=== PATIENT | female | born 1970 | race Caucasian/White ===

== ENCOUNTER 2021-11-18 11:15 | Outpatient (REF) | payer OTHER, SELFPAY ==
[2021-11-25 13:02] LABS: Vitamin D 25-OH, D2 <4 ng/mL; Vitamin D 25-OH, D3 25 ng/mL; Vitamin D 25-OH, Total 25 ng/mL (30-100)
== END 2021-11-18 11:16 | disposition home or self-care (01) ==
LOC: HO.WFDLDS 11:15
PROVIDERS: Visit Provider Hospitalist
DX: I10 Essential (primary) hypertension (principal); R00.2 Palpitations; E55.9 Vitamin D deficiency, unspecified
CPT/HCPCS: 36415; 82306

== ENCOUNTER 2021-12-09 09:23 | Outpatient (REF) | payer OTHER, SELFPAY ==
[2021-12-09 11:32] LABS: TSH reflex Free T4 2.13 uIU/mL (0.32-4.0)
== END 2021-12-09 09:24 | disposition home or self-care (01) ==
LOC: HO.WFDLDS 09:23
PROVIDERS: Visit Provider Hospitalist
DX: Z00.00 Encounter for general adult medical examination without abnormal findings (principal); R53.83 Other fatigue
CPT/HCPCS: 36415; 84443

== ENCOUNTER 2022-01-08 11:47 | Outpatient (REF) | payer OTHER, SELFPAY ==
[2022-01-08 13:54] LABS: Hematocrit 40.9 % (37.0-47.0); Hemoglobin 13.9 g/dl (12.0-16.0); Mean Corpuscular Hemoglobin 30.2 pg (27.0-33.0); Mean Corpuscular Volume 88.7 fL (80.0-98.0); Mean Platelet Volume 9.3 fL (9.4-12.3); Platelet Count 440 X10*3/uL (160-400); Red Blood Count 4.61 X10*6/uL (4.20-5.50); Red Cell Distribution Width 12.8 % (11.0-16.0); White Blood Count 11.8 X10*3/uL (4.8-10.8)
== END 2022-01-08 11:48 | disposition home or self-care (01) ==
LOC: HO.WFDLDS 11:47
PROVIDERS: Visit Provider Hospitalist
DX: R53.83 Other fatigue (principal)
CPT/HCPCS: 36415; 85027

== ENCOUNTER → 2022-02-15 09:13 | Outpatient (BNVA) | payer OTHER, SELFPAY | PROVIDERS: PCP Hospitalist; Referring Provider Hospitalist; Visit Provider Internal Medicine | DX: R00.2 Palpitations (principal); R06.02 Shortness of breath; E66.01 Morbid (severe) obesity due to excess calories | CPT/HCPCS: 93005; 99202 ==

== ENCOUNTER 2022-04-20 11:23 | Outpatient (REF) | payer OTHER, SELFPAY ==
[2022-04-20 14:17] LABS: Hematocrit 44.8 % (37.0-47.0); Hemoglobin 14.6 g/dl (12.0-16.0); Mean Corpuscular HGB Conc 32.6 g/dl (31.0-35.0); Mean Corpuscular Hemoglobin 29.5 pg (27.0-33.0); Mean Corpuscular Volume 90.5 fL (80.0-98.0); Mean Platelet Volume 9.3 fL (9.4-12.3); Platelet Count 462 X10*3/uL (160-400); Red Blood Count 4.95 X10*6/uL (4.20-5.50); Red Cell Distribution Width 12.9 % (11.0-16.0); White Blood Count 9.6 X10*3/uL (4.8-10.8)
[2022-04-20 16:41] LABS: Alanine Aminotransferase 17 U/L (0-31); Albumin Level 4.4 g/dL (3.5-5.0); Alkaline Phosphatase 88 U/L (39-117); Anion Gap 13 (12-20); Aspartate Amino Transferase 16 U/L (5-31); Bilirubin Total 0.7 mg/dL (0.0-1.0); Blood Urea Nitrogen 14 mg/dL (9-16); Calcium 9.9 mg/dL (8.4-10.2); Carbon Dioxide 27 mmol/L (22-29); Chloride 106 mmol/L (96-108); Cholesterol 229 mg/dL; Estimated Glomerular Filt Rate > 60; Glucose Fasting 149 mg/dL (60-99); HDL Cholesterol 36 mg/dL; LDL Cholesterol Calculated 167 mg/dl; Potassium 4.2 mmol/L (3.3-5.1); Sodium 142 mmol/L (135-145); Total Protein 7.6 g/dL (6.5-8.0); Triglycerides 131 mg/dL
[2022-04-20 17:13] LABS: Free T4 (Free Thyroxine) 1.07 ng/dL (0.71-1.85)
== END 2022-04-20 11:24 | disposition home or self-care (01) ==
LOC: HO.WFDLDS 11:23
PROVIDERS: Visit Provider Hospitalist
DX: Z00.00 Encounter for general adult medical examination without abnormal findings (principal)
CPT/HCPCS: 36415; 80053; 80061; 84439; 84443; 85027

== ENCOUNTER 2023-01-12 09:56 | Outpatient (AMB) | payer OTHER, SELFPAY ==
[2023-01-12 09:57] VITALS: BP 134/84; PULSE 80; TEMP 36.6; O2SAT 98; BMI 37.3
--- NOTE | 2023-01-12 09:57 | AM.OFFWIN_ITS ---
Intake Vital Signs 01/12/23 09:57 Height 5 ft 5 in Weight 224 lb BMI 37.3 BP 134/84 Blood Pressure Location Rt brachial Position Sitting Pulse 80 Pulse Source Pulse Oximeter Temp 97.8 F Temp Source Temporal Artery Scan Pulse Oximetry (%) 98 Oxygen Delivery Method Room Air Intake Visit Reasons: EST/sore throat/congestion(masked lobby) Intake Note: pt is here for c/o sore throat with congestion Patient Tobacco Use Status: Former Tobacco user Quit Date: quit 20 years ago Allergies weed pollen Allergy (Mild, Verified 01/12/23 10:22) sneezing, watery eyes blue dye Allergy (Verified 01/12/23 10:22) Rash red dye Allergy (Verified 01/12/23 10:22) Rash Medication List - Last Reconciled 01/12/23 by Daniel Rodriguez MD amlodipine 5 mg PO DAILY 3 months azithromycin take 500 mg today (day 1), then 250 mg for 4 days (days 2-5) PO cholecalciferol (vitamin D3) 50 mcg PO DAILY hydrochlorothiazide 25 mg PO DAILY levothyroxine 100 mcg (2 x 50 mcg) PO QAM 90 days losartan 100 mg PO DAILY metoprolol tartrate 25 mg PO BID norethindrone acetate 5 mg PO DAILY venlafaxine ER 37.5 mg PO DAILY Ventolin HFA 90 mcg/actuation (albuterol sulfate) 1 inh inhalation QID PRN 1 month NS Do you need a note to return to daycare/school/sports/work: Yes HPI EST/sore throat/congestion(masked lobby) HPI Details Patient presents for a sick visit. Reporting symptoms of sinus congestion, sore throat and difficulty swallowing. Low-grade fever. No family member is sick. No recent travel. Patient reports symptoms of malaise and fatigue. PFSH Medical History Morbid obesity Surgical History No pertinent past surgical history Family History Mother Mental health disorder Social History Housing: House Patient Tobacco Use Status: Former Tobacco user Quit Date: quit 20 years ago e-Cigarette/Vaping Use: Never Used Second Hand Smoke Exposure: No service: No Current occupational status: unemployed Current occupational exposures/hazards: No Cognitive needs: No Hearing needs: No Vision needs: No Physical Exam Vital Signs: Last Vital Signs Temp 97.8 F 01/12/23 09:57 Pulse 80 01/12/23 09:57 BP 134/84 01/12/23 09:57 Pulse Ox 98 01/12/23 09:57 Oxygen Delivery Method Room Air 01/12/23 09:57 BMI result Body Mass Index 37.3 Const General: cooperative and healthy appearing Nutritional Appearance: well nourished Orientation/consciousness: patient oriented x3 Limitations: no limitations HEENT Head: Yes normal to inspection Eyes General: appearance normal, both eyes and all related structures Neck Neck: Yes normal visual inspection Chest Chest palpation & inspection: normal palpation of entire chest wall Resp Effort & Inspection: normal respiratory effort Neuro General: patient oriented x3 Results AMB Rapid Strep AMB Rapid Strep Negative Last Edit by Tanner Doe CMA on 01/12/23 10 :11 Results Reviewed Results Reviewed: Laboratory Last Values Strep Scn Rapid Clinic Negative 01/12/23 10:10 Assessment & Plan Assessment & Plan (1) Upper respiratory tract infection: Code(s): J06.9 - Acute upper respiratory infection, unspecified Plan: Antibiotics ordered. Increase fluid intake. Tylenol for aches and pains. If symptoms worsen, follow-up here for a recheck. Orders: Orders BinaxNOW Covid-19 Ag Today J06.9 - Acute upper respiratory infection, unspecified AMB Rapid Strep Screen Today Z13.9 - Encounter for screening, unspecified Medications: New azithromycin take 500 mg today (day 1), then 250 mg for 4 days (days 2-5) PO 6 tabs 0RF Coding Level of Care Code Est Pt Level 3 (72358) Diagnoses Upper respiratory tract infection J06.9
== END 2023-01-12 11:37 | disposition home or self-care (01) ==
PROVIDERS: PCP Hospitalist; Visit Provider Internal Medicine
DX: J06.9 Acute upper respiratory infection, unspecified (principal); J02.9 Acute pharyngitis, unspecified
CPT/HCPCS: 87880; 99213

== ENCOUNTER 2023-01-12 10:21 | Outpatient (REF) | payer OTHER, SELFPAY ==
[2023-01-12 10:46] LABS: Binax Internal Control QC Valid; Binax Now Covid-19 Ag Negative (Negative); Binax Performed by: HO.BONILM
== END 2023-01-12 10:22 | disposition home or self-care (01) ==
LOC: HO.HMGCLDS 10:21
PROVIDERS: PCP Hospitalist; Visit Provider Internal Medicine
DX: J06.9 Acute upper respiratory infection, unspecified (principal); Z20.822 Contact with and (suspected) exposure to COVID-19
CPT/HCPCS: 87811

== ENCOUNTER 2023-01-21 09:42 | Outpatient (AMB) | payer OTHER, SELFPAY ==
--- NOTE | 2023-01-21 09:47 | MHC.PC.OV ---
Vital Signs 01/21/23 09:49 Height 5 ft 5 in Weight 223 lb 4 oz BMI 37.1 BP 124/76 Blood Pressure Location Rt brachial Position Sitting Respiration 12 Pulse 63 Pulse Source Pulse Oximeter Temp 97.8 F Temp Source Temporal Artery Scan Pulse Oximetry (%) 99 Oxygen Delivery Method Room Air Intake Visit Reasons: ongoing cough Intake Note: Patient states that she went to [facility] in [place] and was told she had an infection and taking meds she states she deleveloped a cough. 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 Accompanied by: Self / Same As Patient Allergies weed pollen Allergy (Mild, Verified 01/21/23 10:03) sneezing, watery eyes blue dye Allergy (Verified 01/21/23 10:03) Rash red dye Allergy (Verified 01/21/23 10:03) Rash Medication List - Last Reconciled 01/21/23 by Ba Walker CNP amlodipine 5 mg PO DAILY 3 months cholecalciferol (vitamin D3) 50 mcg PO DAILY hydrochlorothiazide 25 mg PO DAILY levothyroxine 100 mcg (2 x 50 mcg) PO QAM 90 days losartan 100 mg PO DAILY metoprolol tartrate 25 mg PO BID norethindrone acetate 5 mg PO DAILY venlafaxine ER 37.5 mg PO DAILY Ventolin HFA 90 mcg/actuation (albuterol sulfate) 1 inh inhalation QID PRN 1 month NS Tobacco use date assessed: 10/21/22 Dental Screening Dental Screen Date: 01/21/23 Did you have a dental visit in the last 12 months?: No Did you have a dental problem in the last 6 months where you did not have access to dental care?: No Was dental information given to patient?: Yes HPI HPI Comments History of Present Illness Details 52-year-old female presents with complaints of ongoing cough. She was treated for upper respiratory viral infection at the [facility] on 01/12/2023. Rapid strep test was negative She was prescribed Z-Mauricio. She notes she completed the course of antibiotic. However, she developed nonproductive cough 2 days after taking the medication. She continues to cough and associated running nose and mild sore throat. She has been taking Mucinex DM with some relief. She denies fever, chills, body aches, fatigue, or weakness. She reports positive sick contacts at work with COVID and other respiratory illness. [facility] Medical History Morbid obesity Surgical History No pertinent past surgical history Family History Mother Mental health disorder Social History Housing: House Patient Tobacco Use Status: Never used Tobacco e-Cigarette/Vaping Use: Never Used Second Hand Smoke Exposure: No service: No Current occupational status: unemployed Current occupational exposures/hazards: No Cognitive needs: No Hearing needs: No Vision needs: No Questionnaire Thrive Questionnaire Date Thrive assessed: 11/18/21 KAYA-7 AMB Questionnaire KAYA-7 Date KAYA - 7 assessed: 11/18/21 Source: Developed by Drs. Deion Marshall, Sandra Lopez, Ricardo Raymond and colleagues, with an educational jim from [employer]. ACT Questionnaire In the past 4 weeks, how much of the time did your asthma keep you from getting as much done at work, school or at home?: None of the time During the past 4 weeks, how often have you had shortness of breath?: Not at all During the past 4 weeks, how often did your asthma symptoms wake you up at night or earlier than usual in the morning?: Not at all During the past 4 weeks, how often have you had to use your rescue inhaler or nebulizer medication?: 1-2 times a week How would you rate your asthma control during the past 4 weeks?: Well controlled Score: 21 Review of Systems Const Details: Const Denies chills, Denies fatigue, Denies fever(s), Denies headache(s) and Denies weakness ENT Reports as per HPI Card Denies chest pain, Denies lightheadedness, Denies dyspnea and Denies other (Palpitations) Resp Reports cough, Denies dyspnea, Denies wheezing and Denies other ( shortness of breath) GI Denies abdominal pain, Denies melena, Denies hematochezia, Denies change in bowel habits, Denies dyspepsia and Denies nausea Denies hematuria and Denies dysuria Musc Denies abnormal gait, Denies myalgias, Denies arthralgias, Denies numbness and Denies tingling Skin/Breast Denies rash, Denies unusual bruising and Denies wounds Neuro Denies abnormal gait, Denies dizziness, Denies headache(s), Denies memory loss, Denies numbness, Denies Sensory deficit (Neuro), Denies tingling and Denies weakness Psych Denies anxiety, Denies depression, Denies memory loss Endo Denies cold intolerance, Denies fatigue, Denies heat intolerance, Denies polydipsia and Denies polyuria Aller/Immun Denies wheezing Physical exam (Primary Care) Vital Signs: Last Vital Signs Temp 97.8 F 01/21/23 09:49 Pulse 63 01/21/23 09:49 Resp 12 01/21/23 09:49 BP 124/76 01/21/23 09:49 Pulse Ox 99 01/21/23 09:49 Oxygen Delivery Method Room Air 01/21/23 09:49 BMI result Body Mass Index 37.1 Tobacco/Smoking Status: Tobacco use Status Tobacco use date assessed 10/21/22 01/21/23 09:49 Patient Tobacco Use Status Never used Tobacco 01/21/23 10:00 e-Cigarette/Vaping Use Never Used 01/21/23 09:49 Thrive Assessment: Date of Thrive Assessment Date Thrive assessed 11/18/21 01/21/23 09:49 Const Other: General: no acute distress and well developed Nutritional Appearance: well nourished Orientation/consciousness: patient oriented x3 HENMT Head is normocephalic Bilateral ear canal and TM are normal Nasal turbinates and oropharynx are pink and moist Sinuses are nontender with palpation No auricular or cervical lymphadenopathy Eyes General: appearance normal, both eyes and all related structures Pupils: Equal, round and reactive pupils present EOM: EOMs intact bilaterally Resp Effort & Inspection: normal respiratory effort Auscultation: clear to auscultation bilaterally Cardio Rate: regular rate Rhythm: regular rhythm Heart sounds: S1 normal heart sound present, S2 normal heart sound present, no gallops, no murmurs and no rubs GI Palpation (GI): No Abdominal aortic bruit present, Soft to palpation, nontender, No hepatosplenomegaly present and No Rebound tenderness present Auscultation: normal bowel sounds General: Yes no CVA tenderness Back/Spine/Pelvis Back: no CVA tenderness Cervical Spine: cervical ROM normal and No Cervical spine tenderness Thoracic/Lumbar Spine: thoraco-lumbar ROM normal, No pain with thoraco-lumbar ROM, No thoracic spinal tenderness and No lumbar spinal tenderness Extrem General: Yes normal to inspection, No edema and No calf tenderness Skin General: warm and dry. Normal skin color. Normal skin turgor Lesions: no lesions Rashes: no rashes Trauma: no lacerations or abrasions Wounds: no wounds Nails: normal Neuro General: patient oriented x3, gait normal and no focal neuro deficit Cranial nerves: Yes Equal, round and reactive pupils present Cognition (Neuro): normal cognition Gait exam (Neuro): Normal gait present Sensory Exam: No Sensory deficit (Neuro) Psych Appearance: grossly normal Affect: normal affect Attitude: cooperative Thought process: Normal thought process present Assessment and Plan Assessment & Plan (1) Upper respiratory tract infection: Code(s): J06.9 - Acute upper respiratory infection, unspecified Plan: Likely viral illness though possibly allergies. No exam evidence of bacterial infection Viral illness There is no antibiotic medication for viruses.? They must run their course.? Most average 5-7 days but 7-10 days is not uncommon and up to 14 days is still possible.? A cough is often the last symptom to resolve and this can last for weeks in some cases. Rest Hydrate well -? Drink plenty of fluids.? Especially water. Tylenol or ibuprofen for muscle aches, headache, fever/discomform Benzonatate and Claritin as prescribed May gargle with salt water for throat discomfort Cannot rule out COVID-19/RSV/Flu infection Nasal swab acquired and will be sent to the lab Return for new or worsening symptoms Verbalized understanding and agreed with treatment plan. Orders: Orders SARS-CoV2/FLU/RSV Today J06.9 - Acute upper respiratory infection, unspecified Medications: New benzonatate 200 mg PO BID PRN 20 caps 0RF cough loratadine (Claritin) 10 mg PO DAILY 30 tabs 3RF 30 days Coding Level of Care Code Est Pt Level 2 (55000) Diagnoses Upper respiratory tract infection J06.9
[2023-01-21 09:49] VITALS: BP 124/76; PULSE 63; RESP 12; TEMP 36.6; O2SAT 99; BMI 37.1
== END 2023-01-21 10:13 | disposition home or self-care (01) ==
PROVIDERS: PCP Hospitalist; Visit Provider Nurse Practitioner Family
DX: J06.9 Acute upper respiratory infection, unspecified (principal)
CPT/HCPCS: 99212

== ENCOUNTER 2023-01-21 10:12 | Outpatient (REF) | payer OTHER, SELFPAY ==
[2023-01-21 15:30] LABS: Influenza A PCR NEGATIVE (Negative); Influenza B PCR NEGATIVE (Negative); Resp Syncy Virus RNA Qual PCR NEGATIVE (Negative); SARS COV2 PCR INHOUSE NEGATIVE (Negative)
== END 2023-01-21 10:13 | disposition home or self-care (01) ==
LOC: HO.LAB 10:12
PROVIDERS: Visit Provider Nurse Practitioner Family
DX: J06.9 Acute upper respiratory infection, unspecified (principal); Z20.822 Contact with and (suspected) exposure to COVID-19
CPT/HCPCS: 0241U

== ENCOUNTER 2023-02-03 15:53 | Outpatient (AMB) | payer OTHER, SELFPAY ==
[2023-02-03 15:55] VITALS: BP 124/70; PULSE 68; RESP 13; TEMP 37.1; O2SAT 98; BMI 37.0
--- NOTE | 2023-02-03 15:55 | MHC.PC.OV ---
Vital Signs 02/03/23 15:55 Height 5 ft 5 in Weight 222 lb 6 oz BMI 37.0 BP 124/70 Blood Pressure Location Rt brachial Position Sitting Respiration 13 Pulse 68 Pulse Source Pulse Oximeter Temp 98.7 F Temp Source Temporal Artery Scan Pulse Oximetry (%) 98 Oxygen Delivery Method Room Air Intake Visit Reasons: Transfer of Care - 3 mos HTN, asthma Intake Note: Patient states that she is still dealing with dry cough from strep throat and viral infection she had. Patient states that inhaler hasnt really helped nor the medication so patient states she will be getting a vaporizer to open airways. Patient would like referral to OB due to having fibroid tumor on her uterus. Patient states she thinks she may have endometriosis. Lobbyist Required: No Accompanied by: Self / Same As Patient Allergies Seasonal Allergies Allergy (Intermediate, Verified 02/03/23 16:07) Runny Nose weed pollen Allergy (Mild, Verified 02/03/23 16:07) sneezing, watery eyes blue dye Allergy (Verified 02/03/23 16:07) Rash red dye Allergy (Verified 02/03/23 16:07) Rash Medication List - Last Reconciled 02/03/23 by Ba Walker CNP amlodipine 5 mg PO DAILY 3 months benzonatate 200 mg PO BID PRN cholecalciferol (vitamin D3) 50 mcg PO DAILY hydrochlorothiazide 25 mg PO DAILY levothyroxine 100 mcg (2 x 50 mcg) PO QAM 90 days loratadine (Claritin) 10 mg PO DAILY 30 days losartan 100 mg PO DAILY metoprolol tartrate 25 mg PO BID norethindrone acetate 5 mg PO DAILY venlafaxine ER 37.5 mg PO DAILY Ventolin HFA 90 mcg/actuation (albuterol sulfate) 1 inh inhalation QID PRN 1 month NS Tobacco use date assessed: 10/21/22 Dental Screening Dental Screen Date: 02/03/23 Did you have a dental visit in the last 12 months?: No Did you have a dental problem in the last 6 months where you did not have access to dental care?: No Was dental information given to patient?: Patient has dentist HPI HPI Comments History of Present Illness Details 52-year-old female presents for transfer of care and hypertension and asthma follow-up. Her former PCP was JUNITO who is no longer with the practice. She admits to taking her medications as prescribed. She reports ongoing nonproductive cough. Her symptoms have been ongoing for the past 3 weeks, worse at night. She was seen at the [facility] twice and was treated for upper respiratory infection. 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 Deion Marshall, Sandra Lopez, Ricardo Raymond and colleagues, with an educational jim from [employer]. ACT Questionnaire In the past 4 weeks, how much of the time did your asthma keep you from getting as much done at work, school or at home?: None of the time During the past 4 weeks, how often have you had shortness of breath?: More than once a day During the past 4 weeks, how often did your asthma symptoms wake you up at night or earlier than usual in the morning?: Not at all During the past 4 weeks, how often have you had to use your rescue inhaler or nebulizer medication?: 1-2 times a week How would you rate your asthma control during the past 4 weeks?: Somewhat controlled ACT Interpretation: Positive Score: 16 Review of Systems Const Details: Const Denies chills, Denies fatigue, Denies fever(s), Denies headache(s) and Denies weakness ENT Denies dizziness and Denies headache(s) Card Denies chest pain, Denies lightheadedness, Denies dyspnea and Denies other (Palpitations) Resp Reports cough, Denies dyspnea, Denies wheezing and Denies other ( shortness of breath) GI Denies abdominal pain, Denies melena, Denies hematochezia, Denies change in bowel habits, Denies dyspepsia and Denies nausea Denies hematuria and Denies dysuria Musc Denies abnormal gait, Denies myalgias, Denies arthralgias, Denies numbness and Denies tingling Neuro Denies abnormal gait, Denies dizziness, Denies headache(s), Denies memory loss, Denies numbness, Denies Sensory deficit (Neuro), Denies tingling and Denies weakness Psych Denies anxiety, Denies depression, Denies memory loss Endo Denies cold intolerance, Denies fatigue, Denies heat intolerance, Denies polydipsia and Denies polyuria Aller/Immun Denies wheezing Physical exam (Primary Care) Vital Signs: Last Vital Signs Temp 98.7 F 02/03/23 15:55 Pulse 68 02/03/23 15:55 Resp 13 02/03/23 15:55 BP 124/70 02/03/23 15:55 Pulse Ox 98 02/03/23 15:55 Oxygen Delivery Method Room Air 02/03/23 15:55 BMI result Body Mass Index 37.0 Tobacco/Smoking Status: Tobacco use Status Tobacco use date assessed 10/21/22 01/21/23 09:49 Patient Tobacco Use Status Never used Tobacco 01/21/23 10:00 e-Cigarette/Vaping Use Never Used 01/21/23 09:49 Thrive Assessment: Date of Thrive Assessment Date Thrive assessed 11/18/21 01/21/23 09:49 Const Other: General: no acute distress and well developed Nutritional Appearance: well nourished Orientation/consciousness: patient oriented x3 HENNJ Head: Yes normocephalic and Yes atraumatic Eyes General: appearance normal, both eyes and all related structures Pupils: Equal, round and reactive pupils present EOM: EOMs intact bilaterally Resp Effort & Inspection: normal respiratory effort Auscultation: clear to auscultation bilaterally Cardio Rate: regular rate Rhythm: regular rhythm Heart sounds: S1 normal heart sound present, S2 normal heart sound present, no gallops, no murmurs and no rubs GI Palpation (GI): No Abdominal aortic bruit present, Soft to palpation, nontender, No hepatosplenomegaly present and No Rebound tenderness present Auscultation: normal bowel sounds General: Yes no CVA tenderness Back/Spine/Pelvis Back: no CVA tenderness Cervical Spine: cervical ROM normal and No Cervical spine tenderness Thoracic/Lumbar Spine: thoraco-lumbar ROM normal, No pain with thoraco-lumbar ROM, No thoracic spinal tenderness and No lumbar spinal tenderness Extrem General: Yes normal to inspection, No edema and No calf tenderness Skin General: warm and dry. Normal skin color. Normal skin turgor Neuro General: patient oriented x3, gait normal and no focal neuro deficit Cranial nerves: Yes Equal, round and reactive pupils present Cognition (Neuro): normal cognition Gait exam (Neuro): Normal gait present Sensory Exam: No Sensory deficit (Neuro) Psych Appearance: grossly normal Affect: normal affect Attitude: cooperative Thought process: Normal thought process present Assessment and Plan Assessment & Plan (1) Hypertension: Code(s): I10 - Essential (primary) hypertension Qualifiers: Hypertension type: primary hypertension Qualified Code(s): I10 - Essential (primary) hypertension Plan: Blood pressure is controlled, 124/70, within goal of less than 140/90 Continue with current treatment regimen Low-sodium diet encouraged Follow-up in 1-2 months for complete physical exam return sooner with symptoms or concerns Routine labs ordered. Advised to perform fasting blood work before her next visit Verbalized understanding and agreed with treatment plan. (2) Asthma, mild intermittent, well-controlled: Code(s): J45.20 - Mild intermittent asthma, uncomplicated Plan: ACT score is 16 and indicates partially control asthma She has been experiencing nonproductive cough for the past 3 weeks. Likely due to allergies. Chest x-ray ordered to rule out lung disease or tumor Her cough has been refractory to loratadine and albuterol inhaler Flovent ordered. Instructed on the use of the inhaler and advised to use as prescribed Follow-up with worsening or new symptoms Verbalized understanding and agreed with treatment plan. (3) Nonproductive cough: Code(s): R05.8 - Other specified cough Plan: As above (4) Laboratory tests ordered as part of a complete physical exam (CPE): Code(s): Z00.00 - Encounter for general adult medical examination without abnormal findings Plan: Fasting labs ordered as part of a complete physical exam. Advised to fast for at least 10 hours before getting labs drawn. May drink water Verbalized understanding and agreed with treatment plan. Orders: Orders Complete Blood Count Auto Diff Today Z00.00 - Encounter for general adult medical examination without abnormal findings Comprehensive [place]. Panel Fast Today Z00.00 - Encounter for general adult medical examination without abnormal findings Lipid Panel Today Z00.00 - Encounter for general adult medical examination without abnormal findings UA CC w/rflx Micro + Cult Today Z00.00 - Encounter for general adult medical examination without abnormal findings TSH reflex Free T4 Today Z00.00 - Encounter for general adult medical examination without abnormal findings XR chest 2V Today R05.8 - Other specified cough Medications: New fluticasone propionate 44 mcg/actuation (Flovent HFA) administer with spacer 2 puffs inhalation BID 30 days 10.6 grams 2RF Coding Level of Care Code Est Pt Level 3 (71387) Diagnoses Primary hypertension I10 Hypertension type: primary hypertension Asthma, mild intermittent, well-controlled J45.20 Nonproductive cough R05.8 Laboratory tests ordered as part of a complete physical exam (CPE) Z00.00
== END 2023-02-03 16:26 | disposition home or self-care (01) ==
PROVIDERS: PCP Nurse Practitioner Family; Visit Provider Nurse Practitioner Family
DX: I10 Essential (primary) hypertension (principal); J45.20 Mild intermittent asthma, uncomplicated; R05.8 Other specified cough
CPT/HCPCS: 99214

== ENCOUNTER 2023-02-11 11:09 | Outpatient (REF) | payer OTHER, SELFPAY ==
--- NOTE | ~2023-02-11 | XR_ITS ---
EXAMINATION: XR CHEST CLINICAL INFORMATION: Cough. COMPARISON: None available. TECHNIQUE: 2 views of the chest were obtained. FINDINGS: Lungs are well-inflated and clear. Trachea is midline in position. No interstitial disease, consolidation or mass. No pleural effusion or pneumothorax. Cardiac silhouette and pulmonary vessels are normal in size. The mediastinum and delfino have normal contour. The visualized bones and upper abdomen are unremarkable. XR/XR chest 2V IMPRESSION: No evidence of pneumonia. No acute cardiopulmonary abnormality.
== END 2023-02-11 11:10 | disposition home or self-care (01) ==
LOC: HO.HMGCX 11:09
PROVIDERS: PCP Nurse Practitioner Family; Visit Provider Nurse Practitioner Family
DX: R05.8 Other specified cough (principal)
CPT/HCPCS: 71046

== ENCOUNTER 2023-05-20 08:20 | Outpatient (AMB) | payer OTHER, SELFPAY ==
[2023-05-20 08:30] VITALS: BP 126/74; PULSE 85; RESP 13; TEMP 36.4; O2SAT 97; BMI 39.3
--- NOTE | 2023-05-20 08:30 | MHC.PC.OV ---
Vital Signs 05/20/23 08:30 Height 5 ft 5 in Weight 236 lb 4 oz BMI 39.3 BP 126/74 Blood Pressure Location Rt brachial Position Sitting Respiration 13 Pulse 85 Pulse Source Pulse Oximeter Temp 97.5 F Temp Source Temporal Artery Scan Pulse Oximetry (%) 97 Oxygen Delivery Method Room Air Intake Visit Reasons: CPE Intake Note: Patient feels as though her thyroid is off and shes been experiencing indigestion. Wool Hat Flanger Required: No Accompanied by: Self / Same As Patient Allergies Seasonal Allergies Allergy (Intermediate, Verified 05/20/23 08:40) Runny Nose weed pollen Allergy (Mild, Verified 05/20/23 08:40) sneezing, watery eyes blue dye Allergy (Verified 05/20/23 08:40) Rash red dye Allergy (Verified 05/20/23 08:40) Rash Medication List - Last Reconciled 05/20/23 by Ba Walker CNP amlodipine 5 mg PO DAILY 3 months benzonatate 200 mg PO BID PRN cholecalciferol (vitamin D3) 50 mcg PO DAILY fluticasone propionate 44 mcg/actuation (Flovent HFA) 2 puffs inhalation BID 30 days hydrochlorothiazide 25 mg PO DAILY levothyroxine 100 mcg (2 x 50 mcg) PO QAM 90 days loratadine (Claritin) 10 mg PO DAILY 30 days losartan 100 mg PO DAILY metoprolol tartrate 25 mg PO BID norethindrone acetate 5 mg PO DAILY venlafaxine ER 37.5 mg PO DAILY Ventolin HFA 90 mcg/actuation (albuterol sulfate) 1 inh inhalation QID PRN 1 month NS Tobacco use date assessed: 05/20/23 HPI HPI Comments History of Present Illness Details 52-year-old female presents for an extended physical exam She has past medical history significant for hypertension, asthma, obesity, hypothyroidism, vitamin-D deficiency, anxiety, and depression. She has history of fibroids and on norethindorone. She was followed by filling machine operator but not currently She admits to taking her medications as prescribed without adverse reactions She reports feeling of indigestion last week which she attributes to eating spicy food. She took some Tums with resolution of her symptoms She also reports intermittent chronic back pain since she was a teenager, the pain is mostly with palpation. She seen a chiropractor and taking Tylenol with good effect. She has never been evaluated for this by ortho and does not want to be referred to ortho at this time She has not gotten her fasting blood work done. Her last routine blood work was over a year ago She has never had a colonoscopy She notes that her last mammogram was over 2 years ago: something benign under the left breast Last Pap smear test was over 3 years ago: normal She notes she has not been vaccinated for shingles She notes she has not been vaccinated for influenza this season. 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 1. Little interest or pleasure in doing things: not at all 2. Feeling down, depressed, or hopeless: not at all 3. Trouble falling or staying asleep, or sleeping too much: several days 4. Feeling tired or having little energy: several days 5. Poor appetite or overeating: several days 6. Feeling bad about yourself - or that you are a failure or have let yourself or your family down: not at all 7. Trouble concentrating on things, such as reading the newspaper or watching television: not at all 8. Moving or speaking so slowly that other people could have noticed. Or the opposite - being so fidgety or restless that you have been moving around a lot more than usual: not at all 9. Thoughts that you would be better off or of hurting yourself in some way: not at all Total score: 3 Depression Screening Interpretation: Negative Depression Screening Done: Yes 40245 - PHQ-9 Billing: Yes Source: Developed by Drs. Deion Marshall, Ricardo Alexander and colleagues, with an educational jim from [employer]. Thrive Questionnaire Date Thrive assessed: 05/20/23 I am a: Patient What is your living situation today?: I have a steady place to live Within the past 12 months, did the food you bought not last and you didn't have the money to get more?: Never true Within the past 12 months, did you worry whether your food would run out before you got money to buy more?: Never true Do you have trouble paying for medicines?: No Do you have trouble getting transportation to medical appointments?: No Do you have trouble paying your heating and electricity bill?: No Do you have trouble taking care of your child, family member or friend?: No Do you have trouble with day-to-day activities such as bathing, preparing meals, shopping, managing finances, etc.?: No Are you currently unemployed and looking for a job?: No Are you interested in more education?: Yes Please select the resources that you would like help with: Education Currently or been in a relationship where the following occur: no concerns reported THRIVE Score: 0 AUDIT C Alcohol Use Questionnaire (AUDIT-C) 1. How often do you have a drink containing alcohol?: Never 3. How often do you have six or more drinks on one occasion?: Never Total Score: 0 KAYA-7 AMB Questionnaire KAYA-7 Date KAYA - 7 assessed: 05/20/23 Feeling nervous, anxious, or on edge: 1 = Several days Not being able to stop or control worryin = Not at all Worrying too much about different things: 0 = Not at all Trouble relaxin = Not at all Being so restless that it is hard to sit still: 0 = Not at all Becoming easily annoyed or irritable: 0 = Not at all Feeling afraid as if something awful might happen: 0 = Not at all Total KAYA-7 score (0-4 normal; 5-9 mild; 10-14 moderate; 15-21 severe): 1 Source: Developed by Sandra Byrnes Kurt Kroenke and colleagues, with an educational jim from [employer]. KAYA-7 Assessment Billing KAYA-7 Assessment Tool: KAYA-7 Assessment 62648 ACT Questionnaire In the past 4 weeks, how much of the time did your asthma keep you from getting as much done at work, school or at home?: None of the time During the past 4 weeks, how often have you had shortness of breath?: 1-2 times a week During the past 4 weeks, how often did your asthma symptoms wake you up at night or earlier than usual in the morning?: Not at all During the past 4 weeks, how often have you had to use your rescue inhaler or nebulizer medication?: Not at all How would you rate your asthma control during the past 4 weeks?: Completely controlled ACT Interpretation: Negative Score: 24 Review of Systems Const Details: Denies chills, Denies fatigue, Denies fever(s), Denies headache(s) and Denies weakness HEENT Denies change in vision, Denies dizziness, Denies headache(s), Denies hearing loss, Denies nasal congestion, Denies sinus pain, Denies sinus pressure and Denies sore throat Card Denies chest pain, Denies lightheadedness, Denies dyspnea and Denies other (palpitations) Resp Denies cough, Denies dyspnea and Denies wheezing GI Denies abdominal pain, Denies melena, Denies hematochezia, Denies change in bowel habits, Denies dyspepsia and Denies nausea Denies hematuria and Denies dysuria Musc Denies abnormal gait, Denies myalgias, Denies arthralgias, Denies numbness and Denies tingling Skin/Breast Denies rash, Denies unusual bruising and Denies wounds Neuro Denies abnormal gait, Denies dizziness, Denies headache(s), Denies memory loss, Denies numbness, Denies Sensory deficit (Neuro), Denies tingling and Denies weakness Psych Denies anxiety, Denies depression and Denies memory loss Endo Denies cold intolerance, Denies fatigue, Denies heat intolerance, Denies polydipsia and Denies polyuria Cr/Lymph Denies easy bleeding and Denies easy bruising Aller/Immun Denies wheezing Physical exam (Primary Care) Vital Signs: Last Vital Signs Temp 97.5 F 05/20/23 08:30 Pulse 85 05/20/23 08:30 Resp 13 05/20/23 08:30 BP 126/74 05/20/23 08:30 Pulse Ox 97 05/20/23 08:30 Oxygen Delivery Method Room Air 05/20/23 08:30 BMI result Body Mass Index 39.3 Tobacco/Smoking Status: Tobacco use Status Tobacco use date assessed 05/20/23 05/20/23 08:41 Patient Tobacco Use Status Never used Tobacco 05/20/23 08:41 e-Cigarette/Vaping Use Never Used 05/20/23 08:41 PHQ-9: PHQ-9 Score PHQ-9: Total score 3 05/20/23 08:44 Depression Screening Interpretation: Negative Thrive Assessment: Date of Thrive Assessment Date Thrive assessed 05/20/23 05/20/23 08:41 Currently or been in a relationship where the following occur: no concerns reported Const Other: General: no acute distress, well developed, alert and awake Nutritional Appearance: well nourished Orientation/consciousness: patient oriented x3 HENMT Head: Yes normocephalic and Yes atraumatic Ears: hearing grossly normal bilaterally and TM's normal bilaterally General nose exam: Normal external nose present and Normal nares present Mouth: Normal oral and palatal mucosa present and moist mucous membranes Teeth and gingiva: dentition normal Throat: Yes oropharynx normal Eyes Pupils: Equal, round and reactive pupils present and Pupil accommodation reflex normal EOM: EOMs intact bilaterally Neck Neck: Yes normal visual inspection, Yes no lymphadenopathy and Yes trachea midline Thyroid: Thyroid normal Carotids: no bruits Lymphatic: no lymphadenopathy noted Chest Chest palpation & inspection: normal inspection of the chest Resp Effort & Inspection: normal respiratory effort Auscultation: clear to auscultation bilaterally Cardio Rate: regular rate Rhythm: regular rhythm Heart sounds: S1 normal heart sound present, S2 normal heart sound present, no gallops, no murmurs and no rubs Bruits: no abdominal aortic bruits and no carotid bruits GI Palpation (GI): No Abdominal aortic bruit present, Soft to palpation, nontender, No hepatosplenomegaly present and No Rebound tenderness present Auscultation: normal bowel sounds General: Yes no CVA tenderness Back/Spine/Pelvis Back: no CVA tenderness Cervical Spine: cervical ROM normal and No Cervical spine tenderness Thoracic/Lumbar Spine: thoraco-lumbar ROM normal, No pain with thoraco-lumbar ROM, No thoracic spinal tenderness and lumbar spinal tenderness Skin General: warm and dry. Normal skin color. Normal skin turgor Lesions: no lesions Rashes: no rashes Trauma: no lacerations or abrasions Wounds: no wounds Nails: normal Neuro General: patient oriented x3, gait normal and CN's II-XI intact bilaterally Cranial nerves: Yes Equal, round and reactive pupils present Cognition (Neuro): normal cognition Gait exam (Neuro): Normal gait present Motor exam (neuro): 5/5 motor strength present throughout Sensory Exam: No Sensory deficit (Neuro) Deep tendon reflexes (DTR's): Right patellar reflex intensity grade: 2+ and Left patellar reflex intensity grade: 2+ Extrem General: Yes normal to inspection, No edema and No calf tenderness Psych Appearance: grossly normal Affect: normal affect Attitude: cooperative Thought process: Normal thought process present Assessment and Plan Assessment & Plan (1) Normal physical exam: Code(s): Z00.00 - Encounter for general adult medical examination without abnormal findings Plan: No significant physical restrictions or limitations noted Continue current treatment regimen Advised to routine fasting blood work done Follow-up in 2 months for hypertension, anxiety, depression, and labs review Return sooner with symptoms or concerns Verbalized understanding and agreed with treatment plan (2) Hypertension: Code(s): I10 - Essential (primary) hypertension Qualifiers: Hypertension type: primary hypertension Qualified Code(s): I10 - Essential (primary) hypertension Plan: Blood pressure is 126/74, within goal of less than 140/90 Continue current treatment regimen Low-sodium diet and routine exercise encouraged Follow-up in 2 months Verbalized understanding and agreed with treatment plan (3) Asthma, mild intermittent, well-controlled: Code(s): J45.20 - Mild intermittent asthma, uncomplicated Plan: Controlled Continue current treatment regimen Follow-up with symptoms or concerns Verbalized understanding and agreed with treatment plan (4) Anxiety and depression: Code(s): F41.9 - Anxiety disorder, unspecified; F32.A - Depression, unspecified Plan: Reports controlled symptoms on current treatment PHQ-9 and KAYA-7 scores are normal Continue current treatment Follow-up in 2 months or return sooner with symptoms or concerns Verbalized understanding and agreed with treatment plan (5) Obesity (BMI 35.0-39.9 without comorbidity): Code(s): E66.9 - Obesity, unspecified Plan: She currently weighs 236 lb, BMI is 39.3 Healthy diet and routine exercise encouraged She may inform her PCP if she needs a referral to engraver letter/dietitian or with management Verbalized understanding and agreed with the plan (6) Breast cancer screening by mammogram: Code(s): Z12.31 - Encounter for screening mammogram for malignant neoplasm of breast Plan: She notes that her last mammogram was over 2 years ago: something benign under the left breast Mammogram screening ordered (7) Pap smear for cervical cancer screening: Code(s): Z12.4 - Encounter for screening for malignant neoplasm of cervix Plan: Last Pap smear test was over 3 years ago: normal Not currently followed by component assembler supervisor Referred to [facility] component assembler supervisor for Pap smear test (8) Screen for colon cancer: Code(s): Z12.11 - Encounter for screening for malignant neoplasm of colon Plan: She has never had a colonoscopy Referred to Gastroenterology for a colonoscopy (9) Vaccine counseling: Code(s): Z71.85 - Encounter for immunization safety counseling Plan: She notes she has not been vaccinated for shingles nausea she had been vaccinated for the flu this season. She is unsure of been vaccinated for the flu Instructed on importance of vaccination and encouraged to get vaccinated for flu and shingles (10) Chronic low back pain: Code(s): M54.50 - Low back pain, unspecified; G89.29 - Other chronic pain Plan: Pain mostly with palpation Good effects with chiropractor and Tylenol She has never been evaluated by Orthopedics and does not want to be referred at this time Continue current treatment regimen Warm/cold compresses encouraged Follow-up with worsening or new symptoms Verbalized understanding and agreed with treatment plan Orders: Orders MM screening mammo BI Today Z12.31 - Encounter for screening mammogram for malignant neoplasm of breast Referrals Gastroenterology Referral Z12.11 - Encounter for screening for malignant neoplasm of colon STAFF DEVELOPMENT COORDINATOR RN Referral Z12.4 - Encounter for screening for malignant neoplasm of cervix Coding Level of Care Code Est Pt Prev Care 40-64y(31118) Diagnoses Normal physical exam Z00.00 Primary hypertension I10 Hypertension type: primary hypertension Asthma, mild intermittent, well-controlled J45.20 Anxiety and depression F41.9; F32.A Obesity (BMI 35.0-39.9 without comorbidity) E66.9 Breast cancer screening by mammogram Z12.31 Pap smear for cervical cancer screening Z12.4 Screen for colon cancer Z12.11 Vaccine counseling Z71.85 Chronic low back pain M54.50; G89.29 Additional Codes KAYA-7 Assessment Billing - KAYA-7 Assessment Tool: KAYA-7 Assessment 51757 ([id number])
== END 2023-05-20 09:02 | disposition home or self-care (01) ==
PROVIDERS: PCP Nurse Practitioner Family; Visit Provider Nurse Practitioner Family
DX: Z00.00 Encounter for general adult medical examination without abnormal findings (principal); E66.9 Obesity, unspecified; I10 Essential (primary) hypertension; Z68.39 Body mass index [BMI] 39.0-39.9, adult; J45.20 Mild intermittent asthma, uncomplicated; M54.50 Low back pain, unspecified; F41.9 Anxiety disorder, unspecified; F32.A Depression, unspecified; G89.29 Other chronic pain
CPT/HCPCS: 99396

== ENCOUNTER 2023-06-30 12:54 | Outpatient (AMB) | payer OTHER, SELFPAY ==
[2023-06-30 13:25] VITALS: BP 130/78; PULSE 72; TEMP 37.2; O2SAT 98; BMI 39.3
--- NOTE | 2023-06-30 13:25 | AM.OFFWIN_ITS ---
Intake Vital Signs 06/30/23 13:25 Height 5 ft 5 in Weight 236 lb BMI 39.3 BP 130/78 Blood Pressure Location Lt brachial Position Sitting Pulse 72 Pulse Source Pulse Oximeter Temp 99.0 F Temp Source Oral Pulse Oximetry (%) 98 Oxygen Delivery Method Room Air Intake Visit Reasons: EP chills phlem fever 100.4 cough [id number] Intake Note: pt is here for coughing, chills, fever 100.4, at home covid has been negative Patient Tobacco Use Status: Never used Tobacco Allergies Seasonal Allergies Allergy (Intermediate, Verified 06/30/23 13:26) Runny Nose weed pollen Allergy (Mild, Verified 06/30/23 13:26) sneezing, watery eyes blue dye Allergy (Verified 06/30/23 13:) Rash red dye Allergy (Verified 06/30/23 13:) Rash Do you need a note to return to daycare/school/sports/work: Yes HPI EP chills phlem fever 100.4 cough [id number] HPI Details This is a 53-year-old female patient who presents today with a 4 day history of upper airway congestion, productive cough, body aches, headache, chills. Denies any fever. Reports had episode of diarrhea x1. Home COVID test was negative. Has been using albuterol inhaler at home as well as some [id number] cold/flu medication. 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[employer]) Current occupational exposures/hazards: No Cognitive needs: No Hearing needs: No Vision needs: No Review of Systems Const All systems reviewed & are unremarkable except as noted in HPI and below Physical Exam Vital Signs: Last Vital Signs Temp 99.0 F 06/30/23 13:25 Pulse 72 06/30/23 13:25 BP 130/78 06/30/23 13:25 Pulse Ox 98 06/30/23 13:25 Oxygen Delivery Method Room Air 06/30/23 13:25 BMI result Body Mass Index 39.3 Const General: cooperative and no acute distress HEENT Head: Yes normal to inspection Ears: hearing grossly normal bilaterally, external ears normal and TM's normal bilaterally General nose exam: Normal external nose present and Normal nares present Face and sinus: Yes normal facial exam Mouth: Normal oral and palatal mucosa present Throat: Yes posterior oropharynx abnormal (mild erythema) Neck Neck: Yes no lymphadenopathy Resp Effort & Inspection: normal respiratory effort Auscultation: rhonchi upper bilaterally and wheezes scattered wheezes and upper bilaterally Cardio Palpation: normal PMI Rate: regular rate Rhythm: regular rhythm Skin General skin exam: no rashes or lesions noted Extrem General: Yes capillary refill normal and Yes no clubbing, cyanosis or edema Psych Appearance: grossly normal Mental Status: mental status grossly normal Speech and movement: Normal speech and movement present Office Procedures Nebulizer Treatment Nebulizer Treatment [id number]/MDI RX initial, or Nebulizer Subsequent Treatment Office Meds ipratropium 0.5 mg-albuterol 3 mg (2.5 mg base)/3 mL nebulization soln Performing Provider: ELZA Miguel Performing Location: [facility] (formerly [facility]) Administered by: Mami Rivera RN on 06/30/23 14:30 Dose Route Admin Location Dispensed Lot Number Expiration Date [facility] Dental Mold Maker 3 mL inhalation 3 mL [id number] 01/31/24 [id number] [facility] Assessment & Plan Assessment & Plan (1) Wheezing: Code(s): R06.2 - Wheezing Plan: Symptoms consistent with upper respiratory viral illness. Nebulizer treatment/DuoNeb provided in the office today with significant benefit. Avila carter's wheezing resolved following treatment. I have advised she continue to utilize albuterol inhaler at home and may use [id number] cold/flu products. We will also start her on a p.r.n. benzonatate for the coughing. Reviewed indications, use, possible side effects of medications. COVID/flu/RSV swab obtained and patient aware she will be notified with results once these are available. If she does not improve with time and conservative measures, she should return to the clinic for further evaluation. She verbalizes understanding and agrees to plan. (2) Upper respiratory tract infection: Code(s): J06.9 - Acute upper respiratory infection, unspecified Qualifiers: URI type: unspecified viral URI Qualified Code(s): J06.9 - Acute upper respiratory infection, unspecified Plan: as above Orders: Orders AMB Nebulizer Treatment Today R06.2 - Wheezing SARS-CoV2/FLU/RSV Today J06.9 - Acute upper respiratory infection, unspecified Medications: New benzonatate 100 mg PO BID 7 days PRN 14 caps 0RF cough R05.9 - Cough, unspecified Coding Level of Care Code Est Pt Level 3 (65457) Diagnoses Wheezing R06.2 Viral upper respiratory tract infection J06.9 URI type: unspecified viral URI CPT Codes Nebulizer Treatment - Nebulizer Treatment, initial or subsequent: 78676- Nebulizer/MDI RX initial, or Nebulizer Subsequent Treatment ([id number])
== END 2023-06-30 15:02 | disposition home or self-care (01) ==
PROVIDERS: Visit Provider Nurse Practitioner Family
DX: R06.2 Wheezing (principal); J06.9 Acute upper respiratory infection, unspecified
CPT/HCPCS: 94640; 99213; J7620

== ENCOUNTER 2023-06-30 14:23 | Outpatient (REF) | payer OTHER, SELFPAY ==
[2023-06-30 18:07] LABS: Influenza A PCR POSITIVE (Negative); Influenza B PCR NEGATIVE (Negative); Resp Syncy Virus RNA Qual PCR NEGATIVE (Negative); SARS COV2 PCR INHOUSE NEGATIVE (Negative)
== END 2023-06-30 14:24 | disposition home or self-care (01) ==
LOC: HO.LAB 14:23
PROVIDERS: Visit Provider Nurse Practitioner Family
DX: J06.9 Acute upper respiratory infection, unspecified (principal); Z11.52 Encounter for screening for COVID-19
CPT/HCPCS: 0241U

== ENCOUNTER 2023-07-15 07:45 | Outpatient (AMB) | payer OTHER, SELFPAY ==
[2023-07-15 08:07] VITALS: BP 126/74; PULSE 80; RESP 13; TEMP 36.8; O2SAT 99; BMI 39.4
--- NOTE | 2023-07-15 08:07 | MHC.PC.OV ---
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 Accompanied by: Self / Same As Patient Allergies Seasonal Allergies Allergy (Intermediate, Verified 07/15/23 08:17) Runny Nose weed pollen Allergy (Mild, Verified 07/15/23 08:17) sneezing, watery eyes blue dye Allergy (Verified 07/15/23 08:17) Rash red dye Allergy (Verified 07/15/23 08:17) Rash Medication List - Last Reconciled 07/15/23 by Ba Walker CNP amlodipine 5 mg PO DAILY 3 months cholecalciferol (vitamin D3) 50 mcg PO DAILY fluticasone propionate 44 mcg/actuation (Flovent HFA) 2 puffs inhalation BID 30 days hydrochlorothiazide 25 mg PO DAILY levothyroxine 100 mcg (2 x 50 mcg) PO QAM 90 days loratadine (Claritin) 10 mg PO DAILY 30 days losartan 100 mg PO DAILY metoprolol tartrate 25 mg PO BID norethindrone acetate 5 mg PO DAILY venlafaxine ER 37.5 mg PO DAILY Ventolin HFA 90 mcg/actuation (albuterol sulfate) 1 inh inhalation QID PRN 1 month NS Tobacco use date assessed: 05/20/23 Dental Screening Dental Screen Date: 07/15/23 Did you have a dental visit in the last 12 months?: No Did you have a dental problem in the last 6 months where you did not have access to dental care?: No Was dental information given to patient?: Patient has dentist HPI HPI Comments History of Present Illness Details 53-year-old female presents for hypertension, anxiety, depression, and labs review follow-up She admits to taking her medications as prescribed without adverse reactions She reports controlled anxiety and depression symptoms She has not gotten her recent lab orders drawn She notes that she is recovering from the flu. No acute symptoms at this time She notes that she has an appointment scheduled for a mammogram. 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 1. Little interest or pleasure in doing things: not at all 2. Feeling down, depressed, or hopeless: not at all 3. Trouble falling or staying asleep, or sleeping too much: more than half the days 4. Feeling tired or having little energy: more than half the days 5. Poor appetite or overeating: not at all 6. Feeling bad about yourself - or that you are a failure or have let yourself or your family down: not at all 7. Trouble concentrating on things, such as reading the newspaper or watching television: not at all 8. Moving or speaking so slowly that other people could have noticed. Or the opposite - being so fidgety or restless that you have been moving around a lot more than usual: not at all 9. Thoughts that you would be better off or of hurting yourself in some way: not at all Total score: 4 Depression Screening Interpretation: Negative Depression Screening Done: Yes 71273 - PHQ-9 Billing: Yes Source: Developed by Drs. Deion Marshall, Sandra Lopez, Ricardo Raymond and colleagues, with an educational jim from [employer]. Thrive Questionnaire Date Thrive assessed: 05/20/23 KAYA-7 AMB Questionnaire KAYA-7 Date KAYA - 7 assessed: 07/15/23 Feeling nervous, anxious, or on edge: 0 = Not at all Not being able to stop or control worryin = Nearly every day Worrying too much about different things: 3 = Nearly every day Trouble relaxin = Not at all Being so restless that it is hard to sit still: 0 = Not at all Becoming easily annoyed or irritable: 0 = Not at all Feeling afraid as if something awful might happen: 0 = Not at all Total KAYA-7 score (0-4 normal; 5-9 mild; 10-14 moderate; 15-21 severe): 6 Source: Developed by Drs. Deion Marshall, Sandra Lopez, Ricardo Raymond and colleagues, with an educational jim from [employer]. KAYA-7 Assessment Billing KAYA-7 Assessment Tool: KAYA-7 Assessment [id number] Review of Systems Const Details: Const Denies chills, Denies fatigue, Denies fever(s), Denies headache(s) and Denies weakness ENT Denies dizziness and Denies headache(s) Card Denies chest pain, Denies lightheadedness, Denies dyspnea and Denies other (Palpitations) Resp Denies cough, Denies dyspnea, Denies wheezing and Denies other ( shortness of breath) GI Denies abdominal pain, Denies melena, Denies hematochezia, Denies change in bowel habits, Denies dyspepsia and Denies nausea Denies hematuria and Denies dysuria Musc Denies abnormal gait, Denies myalgias, Denies arthralgias, Denies numbness and Denies tingling Skin/Breast Denies rash, Denies unusual bruising and Denies wounds Neuro Denies abnormal gait, Denies dizziness, Denies headache(s), Denies memory loss, Denies numbness, Denies Sensory deficit (Neuro), Denies tingling and Denies weakness Psych Denies anxiety, Denies depression, Denies memory loss Endo Denies cold intolerance, Denies fatigue, Denies heat intolerance, Denies polydipsia and Denies polyuria Aller/Immun Denies wheezing Physical exam (Primary Care) Vital Signs: Last Vital Signs Temp 98.2 F 07/15/23 08:07 Pulse 80 07/15/23 08:07 Resp 13 07/15/23 08:07 BP 126/74 07/15/23 08:07 Pulse Ox 99 07/15/23 08:07 Oxygen Delivery Method Room Air 07/15/23 08:07 BMI result Body Mass Index 39.4 Tobacco/Smoking Status: Tobacco use Status Tobacco use date assessed 05/20/23 05/20/23 08:41 Patient Tobacco Use Status Never used Tobacco 06/30/23 13:27 e-Cigarette/Vaping Use Never Used 05/20/23 08:41 Depression Screening Interpretation: Negative Thrive Assessment: Date of Thrive Assessment Date Thrive assessed 05/20/23 05/20/23 08:41 Const Other: General: no acute distress and well developed Nutritional Appearance: well nourished Orientation/consciousness: patient oriented x3 HENMT Head: Yes normocephalic and Yes atraumatic Eyes General: appearance normal, both eyes and all related structures Pupils: Equal, round and reactive pupils present EOM: EOMs intact bilaterally Resp Effort & Inspection: normal respiratory effort Auscultation: clear to auscultation bilaterally Cardio Rate: regular rate Rhythm: regular rhythm Heart sounds: S1 normal heart sound present, S2 normal heart sound present, no gallops, no murmurs and no rubs GI Palpation (GI): No Abdominal aortic bruit present, Soft to palpation, nontender, No hepatosplenomegaly present and No Rebound tenderness present Auscultation: normal bowel sounds General: Yes no CVA tenderness Back/Spine/Pelvis Back: no CVA tenderness Cervical Spine: cervical ROM normal and No Cervical spine tenderness Thoracic/Lumbar Spine: thoraco-lumbar ROM normal, No pain with thoraco-lumbar ROM, No thoracic spinal tenderness and No lumbar spinal tenderness Extrem General: Yes normal to inspection, No edema and No calf tenderness Skin General: warm and dry. Normal skin color. Normal skin turgor Neuro General: patient oriented x3, gait normal and no focal neuro deficit Cranial nerves: Yes Equal, round and reactive pupils present Cognition (Neuro): normal cognition Gait exam (Neuro): Normal gait present Sensory Exam: No Sensory deficit (Neuro) Psych Appearance: grossly normal Affect: normal affect Attitude: cooperative Thought process: Normal thought process present Assessment and Plan Assessment & Plan (1) Hypertension: Code(s): I10 - Essential (primary) hypertension Qualifiers: Hypertension type: primary hypertension Qualified Code(s): I10 - Essential (primary) hypertension Plan: Blood pressure is controlled, 126/74, within goal of less than 140/90 Continue current treatment regimen Low-sodium diet encouraged Follow-up in 3 months or return sooner with symptoms or concerns Verbalized understanding and agreed with treatment plan (2) Anxiety and depression: Code(s): F41.9 - Anxiety disorder, unspecified; F32.A - Depression, unspecified Plan: Reports controlled anxiety and depression symptoms KAYA-7 score revealed mild anxiety. PHQ-9 score is normal Continue current treatment regimen Routine exercise encouraged Follow-up in 3 months or return sooner with symptoms or concerns Verbalized understanding and agreed with treatment plan Orders: Orders Vitamin D 25-OH Total Today E55.9 - Vitamin D deficiency, unspecified Coding Level of Care Code Est Pt Level 3 (00592) Diagnoses Primary hypertension I10 Hypertension type: primary hypertension Anxiety and depression F41.9; F32.A Additional Codes KAYA-7 Assessment Billing - KAYA-7 Assessment Tool: KAYA-7 Assessment 27014 ([id number])
== END 2023-07-15 08:26 | disposition home or self-care (01) ==
PROVIDERS: PCP Nurse Practitioner Family; Visit Provider Nurse Practitioner Family
DX: I10 Essential (primary) hypertension (principal); F41.9 Anxiety disorder, unspecified; F32.A Depression, unspecified
CPT/HCPCS: 99213

== ENCOUNTER 2023-07-15 08:27 | Outpatient (REF) | payer OTHER, SELFPAY ==
[2023-07-15 11:28] LABS: MANUAL DIFF FLAG NO
[2023-07-15 11:30] LABS: Appearance Urine Cloudy; Color Urine Yellow; Glucose Urine UA Negative (Negative); Leukocyte Esterase Urine Trace (Negative); Nitrite Urine Negative (Negative); PH 6.5 (5.0-9.0); UMIC TRIGGER UACC YES; Urine Blood Negative (Negative); Urine Ketones Negative (Negative); Urine Protein Negative (Neg-Trace)
[2023-07-15 11:33] LABS: Basophils Absolute Auto 0.1 X10*3/uL (0.0-0.2); Basophils Percent Auto 0.6 % (0-2); Eosinophils Absolute Auto 0.4 X10*3/uL (0.0-0.4); Eosinophils Percent Auto 3.3 % (0-4); Hematocrit 42.2 % (37.0-47.0); Hemoglobin 14.2 g/dl (12.0-16.0); Imm Gran Abs Auto 0.04 X10*3/uL (0.00-0.03); Imm Gran Pct Auto 0.4 % (0.0-0.4); Lymphocytes Absolute Auto 2.6 X10*3/uL (1.2-4.9); Lymphocytes Percent Auto 25.1 % (20-40); Mean Corpuscular HGB Conc 33.6 g/dl (31.0-35.0); Mean Corpuscular Hemoglobin 29.8 pg (27.0-33.0); Mean Corpuscular Volume 88.7 fL (80.0-98.0); Mean Platelet Volume 9.5 fL (9.4-12.3); Monocytes Percent Auto 9.5 % (2-11); Neutrophils Absolute Auto 6.4 x10*3/uL (2.0-8.3); Neutrophils Percent Auto 61.1 % (45-73); Platelet Count 458 X10*3/uL (160-400); Red Blood Count 4.76 X10*6/uL (4.20-5.50); Red Cell Distribution Width 12.7 % (11.0-16.0); White Blood Count 10.5 X10*3/uL (4.8-10.8)
[2023-07-15 11:42] LABS: Bacteria Urine 1+ (None Seen); Hyaline Casts Urine 0-2 /LPF (0-2); RBC Urine 0-2 /HPF (0-2); UACC Culture Trigger YES
[2023-07-15 12:37] LABS: Alanine Aminotransferase 15 U/L (0-31); Albumin Level 4.1 g/dL (3.5-5.0); Alkaline Phosphatase 88 U/L (39-117); Anion Gap 12 (12-20); Aspartate Amino Transferase 16 U/L (5-31); Blood Urea Nitrogen 12 mg/dL (9-16); Calcium 9.6 mg/dL (8.4-10.2); Carbon Dioxide 26 mmol/L (22-29); Chloride 106 mmol/L (96-108); Cholesterol 200 mg/dL (<200); Estimated Glomerular Filt Rate 60; Glucose Fasting 112 mg/dL (60-99); HDL Cholesterol 36 mg/dL (>40); LDL Cholesterol Calculated 144 mg/dL (<100); Potassium 3.2 mmol/L (3.3-5.1); Sodium 141 mmol/L (135-145); Total Protein 7.8 g/dL (6.5-8.0); Triglycerides 101 mg/dL (<150)
[2023-07-15 12:52] LABS: TSH reflex Free T4 5.51 uIU/mL (0.32-4.0); Vitamin D 25-OH Total 26.9 ng/mL (>30)
[2023-07-15 13:33] LABS: Free T4 (Free Thyroxine) 1.11 ng/dL (0.71-1.85)
== END 2023-07-15 08:28 | disposition home or self-care (01) ==
LOC: HO.WFDLDS 08:27
PROVIDERS: Visit Provider Nurse Practitioner Family
DX: Z00.00 Encounter for general adult medical examination without abnormal findings (principal); E78.5 Hyperlipidemia, unspecified; E87.6 Hypokalemia; E55.9 Vitamin D deficiency, unspecified; Z13.220 Encounter for screening for lipoid disorders; Z13.29 Encounter for screening for other suspected endocrine disorder
CPT/HCPCS: 36415; 80053; 80061; 81001; 82306; 84439; 84443; 85025; 87086

== ENCOUNTER 2023-08-04 11:15 | Outpatient (REF) | payer OTHER, SELFPAY | END 2023-08-04 11:16 | disposition home or self-care (01) | LOC: HO.MAMMO 11:15 | PROVIDERS: PCP Nurse Practitioner Family; Visit Provider Nurse Practitioner Family | DX: Z12.31 Encounter for screening mammogram for malignant neoplasm of breast (principal) | CPT/HCPCS: 77063; 77067 ==

== ENCOUNTER → 2023-08-04 11:45 | Outpatient (BNV) | payer OTHER, SELFPAY | PROVIDERS: PCP Nurse Practitioner Family; Visit Provider Radiology Diagnostic Radiology | DX: Z12.31 Encounter for screening mammogram for malignant neoplasm of breast (principal) | CPT/HCPCS: 77063; 77067 ==

== ENCOUNTER 2023-08-23 09:27 | Outpatient (AMB) | payer OTHER, SELFPAY ==
[2023-08-23 09:43] VITALS: BP 118/70; PULSE 70; RESP 14; TEMP 36.4; O2SAT 98; BMI 39.9
--- NOTE | 2023-08-23 09:43 | A.OFFPC_ITS ---
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: No Accompanied by: Self / Same As Patient Allergies Seasonal Allergies Allergy (Intermediate, Verified 08/23/23 10:04) Runny Nose weed pollen Allergy (Mild, Verified 08/23/23 10:04) sneezing, watery eyes blue dye Allergy (Verified 08/23/23 10:04) Rash red dye Allergy (Verified 08/23/23 10:04) Rash Medication List - Last Reconciled 08/23/23 by Ba Walker CNP amlodipine 5 mg PO DAILY 3 months cholecalciferol (vitamin D3) 50 mcg PO DAILY 30 days fluticasone propionate 44 mcg/actuation (Flovent HFA) 2 puffs inhalation BID 30 days hydrochlorothiazide 25 mg PO DAILY levothyroxine 112 mcg PO DAILY 30 days loratadine (Claritin) 10 mg PO DAILY 30 days losartan 100 mg PO DAILY metoprolol tartrate 25 mg PO BID norethindrone acetate 5 mg PO DAILY venlafaxine ER 37.5 mg PO DAILY Ventolin HFA 90 mcg/actuation (albuterol sulfate) 1 inh inhalation QID PRN 1 month NS Tobacco use date assessed: 08/23/23 Dental Screening Dental Screen Date: 07/15/23 HPI HPI Comments History of Present Illness Details 53-year-old female presents with complai nts of constant soreness to both elbows and knees. She notes intermittent tingling sensation from her e lbows to forearms. She also reports burning sensation from her right knee to lower leg. She reports continued chronic right hip soreness. Her elbows and knees have soreness have been ongoing for almost 4 weeks and progressively worsened the past 2 weeks. She notes that Ibuprofen provides short term relief. She notes that she has never had imaging of her elbows, hips, or knees. Denies fall, injury, or trauma. She states that her work requires prolonged standing on a wooden floor. 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 Deion Marshall, Sandra Lopez, Ricardo Raymond and colleagues, with an educational jim from [employer]. Review of Systems Const Details: Const Denies chills, Denies fatigue, Denies fever(s), Denies headache(s) and Denies weakness ENT Denies dizziness and Denies headache(s) Card Denies chest pain, Denies lightheadedness, Denies dyspnea and Denies other (Palpitations) Resp Denies cough, Denies dyspnea, Denies wheezing and Denies other ( shortness of breath) GI Denies abdominal pain, Denies melena, Denies hematochezia, Denies change in bowel habits, Denies dyspepsia and Denies nausea Denies hematuria and Denies dysuria Musc Reports as per HPI Skin/Breast Denies rash, Denies unusual bruising and Denies wounds Neuro Denies abnormal gait, Denies dizziness, Denies headache(s), Denies memory loss, Denies numbness, Denies Sensory deficit (Neuro), Denies tingling and Denies weakness Psych Denies anxiety, Denies depression, Denies memory loss Endo Denies cold intolerance, Denies fatigue, Denies heat intolerance, Denies polydipsia and Denies polyuria Aller/Immun Denies wheezing Physical exam (Primary Care) Vital Signs: Last Vital Signs Temp 97.6 F 08/23/23 09:43 Pulse 70 08/23/23 09:43 Resp 14 04/23/24 09:43 BP 118/70 08/23/23 09:43 Pulse Ox 98 08/23/23 09:43 Oxygen Delivery Method Room Air 08/23/23 09:43 BMI result Body Mass Index 39.9 Tobacco/Smoking Status: Tobacco use Status Tobacco use date assessed 08/23/23 08/23/23 09:55 Patient Tobacco Use Status Never used Tobacco 08/23/23 09:55 e-Cigarette/Vaping Use Never Used 08/23/23 09:55 Thrive Assessment: Date of Thrive Assessment Date Thrive assessed 05/20/23 08/23/23 09:49 Const Other: General: no acute distress and well developed Nutritional Appearance: well nourished Orientation/consciousness: patient oriented x3 HENMT Head: Yes normocephalic and Yes atraumatic Eyes General: appearance normal, both eyes and all related structures Pupils: Equal, round and reactive pupils present EOM: EOMs intact bilaterally Resp Effort & Inspection: normal respiratory effort Auscultation: clear to auscultation bilaterally Cardio Rate: regular rate Rhythm: regular rhythm Heart sounds: S1 normal heart sound present, S2 normal heart sound present, no gallops, no murmurs and no rubs GI Palpation (GI): No Abdominal aortic bruit present, Soft to palpation, nontender, No hepatosplenomegaly present and No Rebound tenderness present Auscultation: normal bowel sounds General: Yes no CVA tenderness Back/Spine/Pelvis Back: no CVA tenderness Cervical Spine: cervical ROM normal and No Cervical spine tenderness Thoracic/Lumbar Spine: thoraco-lumbar ROM normal, No pain with thoraco-lumbar ROM, No thoracic spinal tenderness and No lumbar spinal tenderness Extrem General: Yes normal to inspection, No edema and No calf tenderness Normal ROM of bilateral upper and lower extremities. No overt injury or trauma. Tenderness to palpation of the elbows and knees. Negative right straight leg raise Skin General: warm and dry. Normal skin color. Normal skin turgor Neuro General: patient oriented x3, gait normal and no focal neuro deficit Cranial nerves: Yes Equal, round and reactive pupils present Cognition (Neuro): normal cognition Gait exam (Neuro): Normal gait present Sensory Exam: No Sensory deficit (Neuro) Psych Appearance: grossly normal Affect: normal affect Attitude: cooperative Thought process: Normal thought process present Assessment and Plan Assessment & Plan (1) Bilateral elbow joint pain: Code(s): M25.521 - Pain in right elbow; M25.522 - Pain in left elbow Plan: Persistent bilateral elbow and knee pain for about month and chronic persistent right hip pain Normal ROM of bilateral upper and lower extremities. No overt injury or trauma. Tenderness to palpation of the elbows and knees. Negative right straight leg raise Likely arthritis or tendinitis Naproxen 500 mg twice daily recommended. However, she notes that ibuprofen works better for her and she prefers ibuprofen Advised to take ibuprofen 600-800 mg every 8 hours as needed for pain Gabapentin 200 mg twice daily ordered. Advised to take as prescribed. Encouraged to avoid taking during the day if experiencing drowsiness Warm/cold compresses encouraged Avoid prolonged standing PT recommended. However, she notes that she is unsure whether her health plan covers PT. Advised to inquire whether health plan covers PT X-ray ordered Follow-up with worsening or new symptoms Verbalized understanding and agreed with treatment plan (2) Bilateral knee pain: Code(s): M25.561 - Pain in right knee; M25.562 - Pain in left knee Plan: As above (3) Right hip pain: Code(s): M25.551 - Pain in right hip Plan: As above Orders: Orders XR elbow RT 2V Today M25.521 - Pain in right elbow, M25.522 - Pain in left elbow XR elbow LT 2V Today M25.521 - Pain in right elbow, M25.522 - Pain in left elbow XR hip RT w PEL1V Today M25.551 - Pain in right hip XR knee RT 2V Today M25.561 - Pain in right knee, M25.562 - Pain in left knee XR knee LT 2V Today M25.561 - Pain in right knee, M25.562 - Pain in left knee Medications: New gabapentin 200 mg (2 x 100 mg) PO BID 30 days 120 caps 0RF Coding Level of Care Code Est Pt Level 5 (09996) Diagnoses Bilateral elbow joint pain M25.521; M25.522 Bilateral knee pain M25.561; M25.562 Right hip pain M25.551
== END 2023-08-23 10:16 | disposition home or self-care (01) ==
PROVIDERS: PCP Nurse Practitioner Family; Visit Provider Nurse Practitioner Family
DX: M25.521 Pain in right elbow (principal); M25.522 Pain in left elbow; M25.561 Pain in right knee; M25.562 Pain in left knee; M25.551 Pain in right hip
CPT/HCPCS: 99214

== ENCOUNTER 2023-08-23 10:56 | Outpatient (REF) | payer OTHER, SELFPAY ==
--- NOTE | ~2023-08-23 | XR_ITS ---
EXAMINATION: XR KNEE, RIGHT CLINICAL INFORMATION: Pain in right knee COMPARISON: None available. TECHNIQUE: AP and lateral views of the right knee. FINDINGS: No fracture or joint effusion. Alignment is anatomic. Joint spaces are maintained. No abnormal soft tissue calcification. XR/XR knee RT 2V IMPRESSION: No bony abnormality.
--- NOTE | ~2023-08-23 | XR_ITS ---
EXAMINATION: XR KNEE, LEFT CLINICAL INFORMATION: Left knee pain COMPARISON: None available. TECHNIQUE: Four views of the left knee. FINDINGS: No fracture or joint effusion. Alignment is anatomic. Joint spaces are maintained. No abnormal soft tissue calcification. XR/XR knee LT 2V IMPRESSION: No bony abnormality.
--- NOTE | ~2023-08-23 | XR_ITS ---
EXAMINATION: XR ELBOW, LEFT CLINICAL INFORMATION: Pain in left elbow COMPARISON: None available. TECHNIQUE: AP, lateral, and oblique views of the left elbow. FINDINGS: The bones and soft tissues are normal. No fracture or joint effusion. Alignment is anatomic. Joint spaces are maintained. XR/XR elbow LT 2V IMPRESSION: No bony abnormality.
--- NOTE | ~2023-08-23 | XR_ITS ---
EXAMINATION: XR ELBOW, RIGHT CLINICAL INFORMATION: Pain in right elbow COMPARISON: None available. TECHNIQUE: AP, lateral, and oblique views of the right elbow. FINDINGS: The bones and soft tissues are normal. No fracture or joint effusion. Alignment is anatomic. Joint spaces are maintained. XR/XR elbow RT 2V IMPRESSION: No bony abnormality.
--- NOTE | ~2023-08-23 | XR_ITS ---
EXAMINATION: XR HIP, RIGHT CLINICAL INFORMATION: Pain in right hip COMPARISON: None available. TECHNIQUE: Two views of the right hip. FINDINGS: No fracture. Alignment is anatomic. Hip joint space is maintained. Soft tissues are unremarkable. XR/XR hip RT w PEL1V IMPRESSION: No bony abnormality.
== END 2023-08-23 10:57 | disposition home or self-care (01) ==
LOC: HO.HMGCX 10:56
PROVIDERS: PCP Nurse Practitioner Family; Visit Provider Nurse Practitioner Family
DX: M25.551 Pain in right hip (principal); M25.562 Pain in left knee; M25.561 Pain in right knee; M25.522 Pain in left elbow; M25.521 Pain in right elbow
CPT/HCPCS: 73070; 73502; 73560

== ENCOUNTER 2023-09-12 12:33 | Outpatient (AMB) | payer OTHER, SELFPAY ==
--- NOTE | 2023-09-12 13:14 | AM.OFFWIN_ITS ---
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) Intake Note: pt is here for concern for stepping on roland nail, unsure when last tdap was Patient Tobacco Use Status: Never used Tobacco Allergies Seasonal Allergies Allergy (Intermediate, Verified 09/12/23 13:17) Runny Nose weed pollen Allergy (Mild, Verified 09/12/23 13:17) sneezing, watery eyes blue dye Allergy (Verified 09/12/23 13:17) Rash red dye Allergy (Verified 09/12/23 13:17) Rash Do you need a note to return to daycare/school/sports/work: No HPI HPI Comments History of Present Illness Details Patient presents to the walk-in today for sick visit Reports she stepped on a nail out in the yard 2 days ago She denies any concerns with the puncture area, no pain, redness, swelling or drainage. But she does not know her tetanus immunization status and would like it updated today. 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 Answers questions appropriately. Fully engaged in examination. Skin: warm, dry, intact HEENT: Normocephalic. Hearing intact. Cardiac: External chest normal in appearance. Respiratory: No cough, audible wheezing or stridor. Abdomen: without gross distension. MS: No obvious swelling or deformities. Right foot: Small puncture wound noted bottom of right foot. No erythema, exudate date, swelling or bleeding noted. Neurological: Oriented to person, place, time and situation. Thought process intact. No gait abnormalities appreciated. Psychiatric: Appropriate mood and affect. Good judgment and insight. Assessment & Plan Assessment & Plan (1) Encounter for immunization: Code(s): Z23 - Encounter for immunization (2) Puncture wound of right foot: Code(s): S91.331A - Puncture wound without foreign body, right foot, initial encounter Plan No concern for local or systemic infection of the right foot puncture wound Tdap given today, patient tolerated well. All questions and concerns were answered, patient agrees with the plan Follow up with PCP or return here for any new or concerning symptoms Orders: Orders TDaP Immunization Today Z23 - Encounter for immunization Medications: New Boostrix Tdap (diphth,pertus(acell),tetanus) 0.5 mL IM ONCE 0.5 mL 0RF NS Z23 - Encounter for immunization Coding Level of Care Code Est Pt Level 3 (29100) Diagnoses Encounter for immunization Z23 Puncture wound of right foot S91.331A
[2023-09-12 13:16] VITALS: BP 120/72; PULSE 72; TEMP 36.7; O2SAT 98; BMI 39.8
== END 2023-09-12 14:10 | disposition home or self-care (01) ==
PROVIDERS: PCP Nurse Practitioner Family; Visit Provider Registered Nurse Emergency
DX: Z23 Encounter for immunization (principal); S91.331A Puncture wound without foreign body, right foot, initial encounter
CPT/HCPCS: 90471; 90715; 99213

== ENCOUNTER 2023-10-14 12:13 | Outpatient (AMB) | payer OTHER, SELFPAY ==
--- NOTE | 2023-10-14 12:23 | MHC.PC.OV ---
Vital Signs 10/14/23 12:29 Height 5 ft 5 in Weight 235 lb 2 oz BMI 39.1 BP 106/66 Blood Pressure Location Lt brachial Position Sitting Pulse 82 Pulse Source Pulse Oximeter Pulse Oximetry (%) 96 Oxygen Delivery Method Room Air Intake Visit Reasons: HTN, depression, labs review Intake Note: Follow up labs, depression, and anxiety. Allergies Seasonal Allergies Allergy (Intermediate, Verified 10/14/23 12:33) Runny Nose weed pollen Allergy (Mild, Verified 10/14/23 12:33) sneezing, watery eyes blue dye Allergy (Verified 10/14/23 12:33) Rash red dye Allergy (Verified 10/14/23 12:33) Rash Medication List - Last Reconciled 10/14/23 by Ba Walker CNP amlodipine 5 mg PO DAILY 3 months cholecalciferol (vitamin D3) 50 mcg PO DAILY 30 days fluticasone propionate 44 mcg/actuation (Flovent HFA) 2 puffs inhalation BID 30 days gabapentin 200 mg (2 x 100 mg) PO BID 30 days hydrochlorothiazide 25 mg PO DAILY levothyroxine 112 mcg PO DAILY 30 days loratadine (Claritin) 10 mg PO DAILY 30 days losartan 100 mg PO DAILY metoprolol tartrate 25 mg PO BID norethindrone acetate 5 mg PO DAILY venlafaxine ER 37.5 mg PO DAILY Ventolin HFA 90 mcg/actuation (albuterol sulfate) 1 inh inhalation QID PRN 1 month NS Tobacco use date assessed: 08/23/23 Dental Screening Dental Screen Date: 07/15/23 HPI HPI Comments History of Present Illness Details 53-year-old female presents for hypertension, anxiety, depression, and labs review follow-up She admits to taking her medications as prescribed without adverse reactions She reports controlled anxiety and depression symptoms. 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 1. Little interest or pleasure in doing things: not at all 2. Feeling down, depressed, or hopeless: not at all 3. Trouble falling or staying asleep, or sleeping too much: not at all 4. Feeling tired or having little energy: not at all 5. Poor appetite or overeating: more than half the days 6. Feeling bad about yourself - or that you are a failure or have let yourself or your family down: not at all 7. Trouble concentrating on things, such as reading the newspaper or watching television: not at all 8. Moving or speaking so slowly that other people could have noticed. Or the opposite - being so fidgety or restless that you have been moving around a lot more than usual: not at all 9. Thoughts that you would be better off or of hurting yourself in some way: not at all Total score: 2 Depression Screening Interpretation: Negative Depression Screening Done: Yes 48975 - PHQ-9 Billing: Yes Source: Developed by Drs. Deion Marshall, Sandra Lopez, Ricardo Raymond and colleagues, with an educational jim from [employer]. Thrive Questionnaire Date Thrive assessed: 05/20/23 KAYA-7 AMB Questionnaire KAYA-7 Date KAYA - 7 assessed: 10/14/23 Feeling nervous, anxious, or on edge: 0 = Not at all Not being able to stop or control worryin = Not at all Worrying too much about different things: 0 = Not at all Trouble relaxin = Not at all Being so restless that it is hard to sit still: 0 = Not at all Becoming easily annoyed or irritable: 0 = Not at all Feeling afraid as if something awful might happen: 0 = Not at all Total KAYA-7 score (0-4 normal; 5-9 mild; 10-14 moderate; 15-21 severe): 0 Source: Developed by Drs. Deion Marshall, Sandra Lopez, Ricardo Raymond and colleagues, with an educational jim from [employer]. KAYA-7 Assessment Billing KAYA-7 Assessment Tool: KAYA-7 Assessment 95957 Review of Systems Const Details: Const Denies chills, Denies fatigue, Denies fever(s), Denies headache(s) and Denies weakness ENT Denies dizziness and Denies headache(s) Card Denies chest pain, Denies lightheadedness, Denies dyspnea and Denies other (Palpitations) Resp Denies cough, Denies dyspnea, Denies wheezing and Denies other ( shortness of breath) GI Denies abdominal pain, Denies melena, Denies hematochezia, Denies change in bowel habits, Denies dyspepsia and Denies nausea Denies hematuria and Denies dysuria Musc Denies abnormal gait, Denies myalgias, Denies arthralgias, Denies numbness and Denies tingling Skin/Breast Denies rash, Denies unusual bruising and Denies wounds Neuro Denies abnormal gait, Denies dizziness, Denies headache(s), Denies memory loss, Denies numbness, Denies Sensory deficit (Neuro), Denies tingling and Denies weakness Psych Denies anxiety, Denies depression, Denies memory loss Endo Denies cold intolerance, Denies fatigue, Denies heat intolerance, Denies polydipsia and Denies polyuria Aller/Immun Denies wheezing Physical exam (Primary Care) Vital Signs: Last Vital Signs Pulse 82 10/14/23 12:29 BP 106/66 10/14/23 12:29 Pulse Ox 96 10/14/23 12:29 Oxygen Delivery Method Room Air 10/14/23 12:29 BMI result Body Mass Index 39.1 Tobacco/Smoking Status: Tobacco use Status Tobacco use date assessed 08/23/23 10/14/23 12:24 Patient Tobacco Use Status Never used Tobacco 10/14/23 12:24 e-Cigarette/Vaping Use Never Used 10/14/23 12:24 PHQ-9: PHQ-9 Score PHQ-9: Total score 2 10/14/23 12:30 Depression Screening Interpretation: Negative Thrive Assessment: Date of Thrive Assessment Date Thrive assessed 05/20/23 10/14/23 12:24 Const Other: General: no acute distress and well developed Nutritional Appearance: well nourished Orientation/consciousness: patient oriented x3 [facility]: Yes normocephalic and Yes atraumatic Eyes General: appearance normal, both eyes and all related structures Pupils: Equal, round and reactive pupils present EOM: EOMs intact bilaterally Resp Effort & Inspection: normal respiratory effort Auscultation: clear to auscultation bilaterally Cardio Rate: regular rate Rhythm: regular rhythm Heart sounds: S1 normal heart sound present, S2 normal heart sound present, no gallops, no murmurs and no rubs GI Palpation (GI): No Abdominal aortic bruit present, Soft to palpation, nontender, No hepatosplenomegaly present and No Rebound tenderness present Auscultation: normal bowel sounds General: Yes no CVA tenderness Back/Spine/Pelvis Back: no CVA tenderness Cervical Spine: cervical ROM normal and No Cervical spine tenderness Thoracic/Lumbar Spine: thoraco-lumbar ROM normal, No pain with thoraco-lumbar ROM, No thoracic spinal tenderness and No lumbar spinal tenderness Extrem General: Yes normal to inspection, No edema and No calf tenderness Skin General: warm and dry. Normal skin color. Normal skin turgor Neuro General: patient oriented x3, gait normal and no focal neuro deficit Cranial nerves: Yes Equal, round and reactive pupils present Cognition (Neuro): normal cognition Gait exam (Neuro): Normal gait present Sensory Exam: No Sensory deficit (Neuro) Psych Appearance: grossly normal Affect: normal affect Attitude: cooperative Thought process: Normal thought process present Assessment and Plan Assessment & Plan (1) Hypertension: Code(s): I10 - Essential (primary) hypertension Qualifiers: Hypertension type: primary hypertension Qualified Code(s): I10 - Essential (primary) hypertension Plan: Blood pressure is 106/66, within goal of less than 140/90 Continue current treatment regimen Low-sodium diet encouraged Encouraged to check blood pressure 2-3 times weekly and report readings consistently below 100/60 or symptoms of hypotension such as lightheadedness/dizziness Advised to get fasting blood work done and follow-up for labs review in 3 weeks or sooner with symptoms or concerns Verbalized understanding and agreed with the treatment plan (2) Anxiety and depression: Code(s): F41.9 - Anxiety disorder, unspecified; F32.A - Depression, unspecified Plan: Controlled anxiety and depression symptoms PHQ-9 and KAYA-7 scores are normal Continue current treatment regimen Healthy diet and routine exercise encouraged Follow-up with symptoms or concerns Verbalized understanding and agreed with the plan Coding Level of Care Code Est Pt Level 4 (02055) Complex EM visit Add On G2211 Diagnoses Primary hypertension I10 Hypertension type: primary hypertension Anxiety and depression F41.9; F32.A Additional Codes KAYA-7 Assessment Billing - KAYA-7 Assessment Tool: KAYA-7 Assessment 40684 ([id number])
[2023-10-14 12:29] VITALS: BP 106/66; PULSE 82; O2SAT 96; BMI 39.1
== END 2023-10-14 12:44 | disposition home or self-care (01) ==
PROVIDERS: Visit Provider Nurse Practitioner Family
DX: I10 Essential (primary) hypertension (principal); F41.9 Anxiety disorder, unspecified; F32.A Depression, unspecified
CPT/HCPCS: 99214; G2211

== ENCOUNTER 2023-11-02 11:54 | Outpatient (AMB) | payer OTHER, SELFPAY ==
--- NOTE | 2023-11-02 12:09 | AM.OFFWIN_ITS ---
Intake Vital Signs 3 11/02/23 12:10 Height 5 ft 5 in Weight 235 lb BMI 39.1 BP 130/82 Blood Pressure Location Rt brachial Position Sitting Pulse 80 Pulse Source Pulse Oximeter Temp 98.3 F Temp Source Oral Pulse Oximetry (%) 98 Oxygen Delivery Method Room Air Intake Visit Reasons: EP sunburn/rash rt shoulder infected??? Intake Note: pt is here for right shoulder raised infection from sunburn Patient Tobacco Use Status: Never used Tobacco Allergies Seasonal Allergies Allergy (Intermediate, Verified 11/02/23 12:18) Runny Nose weed pollen Allergy (Mild, Verified 11/02/23 12:18) sneezing, watery eyes blue dye Allergy (Verified 11/02/23 12:18) Rash red dye Allergy (Verified 11/02/23 12:18) Rash Do you need a note to return to daycare/school/sports/work: No HPI HPI Comments 2 History of Present Illness0 Details 53 y/o female patient who presents to [facility] clinic with c/o Rash right top shoulder. Pt reports feeling burning and itching sensations in the beginning of September, then 2 weeks ago she developed Rash right shoulder that is spreading to the back of the shoulder. Describes the rash as burning and very itchy. 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[employer]) Current occupational exposures/hazards: No Cognitive needs: No Hearing needs: No Vision needs: No Review of Systems Const All systems reviewed & are unremarkable except as noted in HPI and below Physical Exam Vital Signs: Last Vital Signs Temp 98.3 F 11/02/23 12:10 Pulse 80 11/02/23 12:10 BP 130/82 11/02/23 12:10 Pulse Ox 98 11/02/23 12:10 Oxygen Delivery Method Room Air 11/02/23 12:10 BMI result Body Mass Index 39.1 Const General: comfortable and no acute distress Nutritional Appearance: obese Orientation/consciousness: patient oriented x3 Skin General skin exam: dry skin and erythema Rashes: rashes noted (Right shoulder vesicular rash, pinpoint filled with clear fluid. ) Neuro General: patient oriented x3, gait normal and moves all extremities Extrem Right upper extremity: shoulder/upper arm Details: normal ROM Shoulder/upper arm images: 2 1. A group of small pinpoint vesicular rash, on the same Dermatome. Psych Speech and movement: Normal speech and movement present Assessment & Plan Assessment & Plan (1) Rash and nonspecific skin eruption: Code(s): R21 - Rash and other nonspecific skin eruption Plan: Exam consistent with Shingles. Will start Valtrex today. Take medications as prescribed May Apply Ice to the region to aid with itching Medications: New 2 valacyclovir 1,000 mg PO DAILY 10 tabs 0RF 10 days R21 - Rash and other nonspecific skin eruption prednisone 20 mg PO DAILY 10 tabs 0RF 10 days Coding Level of Care Code Est Pt Level 3 (43717) Diagnoses Rash and nonspecific skin eruption R21 Time Spent (min) 15
[2023-11-02 12:10] VITALS: BP 130/82; PULSE 80; TEMP 36.8; O2SAT 98; BMI 39.1
== END 2023-11-02 13:11 | disposition home or self-care (01) ==
PROVIDERS: PCP Nurse Practitioner Family; Visit Provider Nurse Practitioner Family
DX: R21 Rash and other nonspecific skin eruption (principal)
CPT/HCPCS: 99213

== ENCOUNTER 2023-11-11 08:50 | Outpatient (REF) | payer OTHER, SELFPAY ==
[2023-11-11 12:07] LABS: Estimated Average Glucose 126 mg/dL
[2023-11-11 12:26] LABS: Cholesterol 194 mg/dL (<200); HDL Cholesterol 43 mg/dL (>40); LDL Cholesterol Calculated 129 mg/dL (<100); Potassium 3.3 mmol/L (3.3-5.1); Triglycerides 112 mg/dL (<150)
[2023-11-11 12:44] LABS: TSH reflex Free T4 1.65 uIU/mL (0.32-4.0); Vitamin D 25-OH Total 40.4 ng/mL (>30)
== END 2023-11-11 08:51 | disposition home or self-care (01) ==
LOC: HO.WFDLDS 08:50
PROVIDERS: Visit Provider Nurse Practitioner Family
DX: E55.9 Vitamin D deficiency, unspecified (principal); E78.5 Hyperlipidemia, unspecified; E03.9 Hypothyroidism, unspecified; E87.6 Hypokalemia; R73.01 Impaired fasting glucose
CPT/HCPCS: 36415; 80061; 82306; 83036; 84132; 84443

== ENCOUNTER 2023-11-18 09:42 | Outpatient (AMB) | payer OTHER, SELFPAY ==
--- NOTE | 2023-11-18 09:51 | A.OFFPC_ITS ---
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: No Is last menstrual period known: No Post menopausal: No Patient : No Allergies Seasonal Allergies Allergy (Intermediate, Verified 11/18/23 10:02) Runny Nose weed pollen Allergy (Mild, Verified 11/18/23 10:02) sneezing, watery eyes blue dye Allergy (Verified 11/18/23 10:02) Rash red dye Allergy (Verified 11/18/23 10:02) Rash Medication List - Last Reconciled 11/18/23 by Ba Walker CNP amlodipine 5 mg PO DAILY 3 months cholecalciferol (vitamin D3) 50 mcg PO DAILY 30 days fluticasone propionate 44 mcg/actuation (Flovent HFA) 2 puffs inhalation BID 30 days gabapentin 200 mg (2 x 100 mg) PO BID 30 days hydrochlorothiazide 25 mg PO DAILY levothyroxine 112 mcg PO DAILY 30 days loratadine (Claritin) 10 mg PO DAILY 30 days losartan 100 mg PO DAILY metoprolol tartrate 25 mg PO BID norethindrone acetate 5 mg PO DAILY venlafaxine ER 37.5 mg PO DAILY Ventolin HFA 90 mcg/actuation (albuterol sulfate) 1 inh inhalation QID PRN 1 month NS Tobacco use date assessed: 11/18/23 Dental Screening Dental Screen Date: 11/18/23 Did you have a dental visit in the last 12 months?: No Did you have a dental problem in the last 6 months where you did not have access to dental care?: No HPI HPI Comments History of Present Illness Details 53-year-old female presents for recent l abs review follow-up She admits to taking her medications as prescribed without adverse reactions She offers no complaints and denies acute symptoms at this time [facility] Medical History Morbid obesity Surgical History No pertinent past surgical history Family History Mother Mental health disorder Social History Household Members: Family Housing: House Patient Tobacco Use Status: Never used Tobacco e-Cigarette/Vaping Use: Never Used Second Hand Smoke Exposure: No service: No Current occupational status: employed 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 1. Little interest or pleasure in doing things: not at all 2. Feeling down, depressed, or hopeless: not at all 3. Trouble falling or staying asleep, or sleeping too much: several days 4. Feeling tired or having little energy: several days 5. Poor appetite or overeating: several days 6. Feeling bad about yourself - or that you are a failure or have let yourself or your family down: not at all 7. Trouble concentrating on things, such as reading the newspaper or watching television: not at all 8. Moving or speaking so slowly that other people could have noticed. Or the opposite - being so fidgety or restless that you have been moving around a lot more than usual: not at all 9. Thoughts that you would be better off or of hurting yourself in some way: not at all Total score: 3 Depression Screening Interpretation: Negative Depression Screening Done: Yes 74047 - PHQ-9 Billing: Yes Source: Developed by Drs. Deion Marshall, Ricardo Alexander and colleagues, with an educational jim from [employer]. Thrive Questionnaire Date Thrive assessed: 05/20/23 AUDIT C Alcohol Use Questionnaire (AUDIT-C) 1. How often do you have a drink containing alcohol?: Never Total Score: 0 KAYA-7 AMB Questionnaire KAYA-7 Date KAYA - 7 assessed: 10/14/23 Source: Developed by Drs. Deion Marshall, Ricardo Alexander and colleagues, with an educational jim from [employer]. Review of Systems Const Details: Const Denies chills, Denies fatigue, Denies fever(s), Denies headache(s) and Denies weakness ENT Denies dizziness and Denies headache(s) Card Denies chest pain, Denies lightheadedness, Denies dyspnea and Denies other (Palpitations) Resp Denies cough, Denies dyspnea, Denies wheezing and Denies other ( shortness of breath) GI Denies abdominal pain, Denies melena, Denies hematochezia, Denies change in bowel habits, Denies dyspepsia and Denies nausea Denies hematuria and Denies dysuria Musc Denies abnormal gait, Denies myalgias, Denies arthralgias, Denies numbness and Denies tingling Skin/Breast Denies rash, Denies unusual bruising and Denies wounds Neuro Denies abnormal gait, Denies dizziness, Denies headache(s), Denies memory loss, Denies numbness, Denies Sensory deficit (Neuro), Denies tingling and Denies weakness Psych Denies anxiety, Denies depression, Denies memory loss Endo Denies cold intolerance, Denies fatigue, Denies heat intolerance, Denies polydipsia and Denies polyuria Aller/Immun Denies wheezing Physical exam (Primary Care) Vital Signs: Last Vital Signs Temp 97.7 F 11/18/23 09:57 Pulse 66 11/18/23 09:57 Resp 16 11/18/23 09:57 BP 130/78 11/18/23 09:57 Pulse Ox 96 11/18/23 09:57 Oxygen Delivery Method Room Air 11/18/23 09:57 BMI result Body Mass Index 39.5 Tobacco/Smoking Status: Tobacco use Status Tobacco use date assessed 11/18/23 11/18/23 10:01 Patient Tobacco Use Status Never used Tobacco 11/18/23 09:51 e-Cigarette/Vaping Use Never Used 11/18/23 09:51 PHQ-9: PHQ-9 Score PHQ-9: Total score 3 11/18/23 10:33 Depression Screening Interpretation: Negative Thrive Assessment: Date of Thrive Assessment Date Thrive assessed 05/20/23 11/18/23 09:51 Const Other: General: no acute distress and well developed Nutritional Appearance: well nourished Orientation/consciousness: patient oriented x3 HENMT Head: Yes normocephalic and Yes atraumatic Eyes General: appearance normal, both eyes and all related structures Pupils: Equal, round and reactive pupils present EOM: EOMs intact bilaterally Resp Effort & Inspection: normal respiratory effort Auscultation: clear to auscultation bilaterally Cardio Rate: regular rate Rhythm: regular rhythm Heart sounds: S1 normal heart sound present, S2 normal heart sound present, no gallops, no murmurs and no rubs GI Palpation (GI): No Abdominal aortic bruit present, Soft to palpation, nontender, No hepatosplenomegaly present and No Rebound tenderness present Auscultation: normal bowel sounds General: Yes no CVA tenderness Back/Spine/Pelvis Back: no CVA tenderness Cervical Spine: cervical ROM normal and No Cervical spine tenderness Thoracic/Lumbar Spine: thoraco-lumbar ROM normal, No pain with thoraco-lumbar ROM, No thoracic spinal tenderness and No lumbar spinal tenderness Extrem General: Yes normal to inspection, No edema and No calf tenderness Skin General: warm and dry. Normal skin color. Normal skin turgor Neuro General: patient oriented x3, gait normal and no focal neuro deficit Cranial nerves: Yes Equal, round and reactive pupils present Cognition (Neuro): normal cognition Gait exam (Neuro): Normal gait present Sensory Exam: No Sensory deficit (Neuro) Psych Appearance: grossly normal Affect: normal affect Attitude: cooperative Thought process: Normal thought process present Assessment and Plan Assessment & Plan (1) Dyslipidemia: Code(s): E78.5 - Hyperlipidemia, unspecified Plan: Recent triglycerides, total cholesterol, LDL, and HDL levels are normal, 112, 194, 129, and 43 respectively Advised to limit foods high in saturated fat and avoid foods high in trans fat Routine exercise encouraged Advised to fast for 10-12 hours, may drink water only, and get blood work done a few days before her next visit Follow-up in 3 months Verbalized understanding and agreed with the plan (2) Vitamin D deficiency: Code(s): E55.9 - Vitamin D deficiency, unspecified Plan: Recent vitamin-D level is normal, 40.4 Continue current treatment regimen Verbalized understanding and agreed with the plan (3) Hypothyroidism (acquired): Code(s): E03.9 - Hypothyroidism, unspecified Plan: Recent TSH level was normal, 1.65 Continue current treatment regimen Advised to get blood work done before her next visit Follow-up in 3 months Verbalized understanding and agreed with treatment plan (4) Hypokalemia: Code(s): E87.6 - Hypokalemia Plan: Recent potassium level is normal, 3.3 No changes at this time (5) Prediabetes: Code(s): R73.03 - Prediabetes Plan: Recent A1c 6.0% She notes that her brother and father have type 2 diabetes Low carb diet and routine encouraged Will recheck A1c in 3 months Encouraged to get blood work done before next visit Verbalized understanding and agreed with the plan (6) Hypertension: Code(s): I10 - Essential (primary) hypertension Qualifiers: Hypertension type: primary hypertension Qualified Code(s): I10 - Essential (primary) hypertension Plan: Blood pressure is 130/78, within goal of less than 140/90 Continue current treatment regimen Low-sodium diet encouraged Follow-up in 3 months Verbalized understanding and agreed with treatment plan Orders: Orders TSH reflex Free T4 3 Months E03.9 - Hypothyroidism, unspecified Lipid Panel 3 Months E78.5 - Hyperlipidemia, unspecified Coding Level of Care Code Est Pt Level 4 (81411) Complex EM visit Add On G2211 Diagnoses Dyslipidemia E78.5 Vitamin D deficiency E55.9 Hypothyroidism (acquired) E03.9 Hypokalemia E87.6 Prediabetes R73.03 Primary hypertension I10 Hypertension type: primary hypertension
[2023-11-18 09:57] VITALS: BP 130/78; PULSE 66; RESP 16; TEMP 36.5; O2SAT 96; BMI 39.5
== END 2023-11-18 10:26 | disposition home or self-care (01) ==
PROVIDERS: PCP Nurse Practitioner Family; Visit Provider Nurse Practitioner Family
DX: E78.5 Hyperlipidemia, unspecified (principal); E55.9 Vitamin D deficiency, unspecified; E03.9 Hypothyroidism, unspecified; E87.6 Hypokalemia; R73.03 Prediabetes; I10 Essential (primary) hypertension
CPT/HCPCS: 99214; G2211

== ENCOUNTER 2024-02-07 13:41 | Outpatient (REF) | payer OTHER, SELFPAY ==
[2024-02-07 18:32] LABS: Cholesterol 188 mg/dL (<200); HDL Cholesterol 39 mg/dL (>40); LDL Cholesterol Calculated 132 mg/dL (<100); Triglycerides 85 mg/dL (<150)
[2024-02-07 18:47] LABS: TSH reflex Free T4 3.59 uIU/mL (0.32-4.0)
== END 2024-02-07 13:42 | disposition home or self-care (01) ==
LOC: HO.WFDLDS 13:41
PROVIDERS: Visit Provider Nurse Practitioner Family
DX: E03.9 Hypothyroidism, unspecified (principal); E78.5 Hyperlipidemia, unspecified
CPT/HCPCS: 36415; 80061; 84443

== ENCOUNTER 2024-02-13 08:47 | Outpatient (AMB) | payer OTHER, SELFPAY ==
--- NOTE | 2024-02-13 08:52 | A.OFFPC_ITS ---
Vital Signs 02/13/24 09:02 Height 5 ft 5 in Weight 238 lb 2 oz BMI 39.6 BP 130/76 Blood Pressure Location Rt brachial Position Sitting Respiration 16 Pulse 72 Pulse Source Pulse Oximeter Temp 97.8 F Temp Source Oral Pulse Oximetry (%) 96 Oxygen Delivery Method Room Air Intake Visit Reasons: 3 wks labs review Intake Note: patient here for 3 wks follow up on labs. 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 Is last menstrual period known: No Post menopausal: No Patient : No Allergies acetaminophen [From Percocet] Allergy (Severe, Verified 02/13/24 09:07) Chest Pain oxycodone [From Percocet] Allergy (Severe, Verified 02/13/24 09:07) Chest Pain Seasonal Allergies Allergy (Intermediate, Verified 02/13/24 09:07) Runny Nose weed pollen Allergy (Mild, Verified 02/13/24 09:07) sneezing, watery eyes blue dye Allergy (Verified 02/13/24 09:07) Rash red dye Allergy (Verified 02/13/24 09:07) Rash Medication List - Last Reconciled 02/13/24 by Ba Walker CNP amlodipine 5 mg PO DAILY 3 months cholecalciferol (vitamin D3) 50 mcg PO DAILY 30 days fluticasone propionate 44 mcg/actuation (Flovent HFA) 2 puffs inhalation BID 30 days gabapentin 200 mg (2 x 100 mg) PO BID 30 days hydrochlorothiazide 25 mg PO DAILY levothyroxine 112 mcg PO DAILY 30 days loratadine (Claritin) 10 mg PO DAILY 30 days losartan 100 mg PO DAILY metoprolol tartrate 25 mg PO BID norethindrone acetate 5 mg PO DAILY venlafaxine ER 37.5 mg PO DAILY Ventolin HFA 90 mcg/actuation (albuterol sulfate) 1 inh inhalation QID PRN 1 month NS Tobacco use date assessed: 11/18/23 Dental Screening Dental Screen Date: 02/13/24 Did you have a dental visit in the last 12 months?: No Did you have a dental problem in the last 6 months where you did not have access to dental care?: No Was dental information given to patient?: No HPI HPI Comments History of Present Illness Details 53-year-old female presents for dyslipid emia, hypothyroidism, prediabetes, and hypertension follow-up She admits to taking her medications as prescribed without adverse reactions She reports controlled anxiety and depression symptoms. 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 1. Little interest or pleasure in doing things: not at all 2. Feeling down, depressed, or hopeless: not at all 3. Trouble falling or staying asleep, or sleeping too much: nearly every day 4. Feeling tired or having little energy: nearly every day 5. Poor appetite or overeating: more than half the days 6. Feeling bad about yourself - or that you are a failure or have let yourself or your family down: not at all 7. Trouble concentrating on things, such as reading the newspaper or watching television: several days 8. Moving or speaking so slowly that other people could have noticed. Or the opposite - being so fidgety or restless that you have been moving around a lot more than usual: not at all 9. Thoughts that you would be better off or of hurting yourself in some way: not at all Total score: 9 Depression Screening Interpretation: Positive Depression Screening Follow-up: Existing condition and In treatment Depression Screening Done: Yes 64279 - PHQ-9 Billing: Yes Source: Developed by Drs. Deion Marshall, Sandra Lopez, Ricardo Raymond and colleagues, with an educational jim from [employer]. Thrive Questionnaire Date Thrive assessed: 05/20/23 KAYA-7 AMB Questionnaire KAYA-7 Date KAYA - 7 assessed: 02/13/24 Feeling nervous, anxious, or on edge: 1 = Several days Not being able to stop or control worryin = More than half the days Worrying too much about different things: 2 = More than half the days Trouble relaxin = Not at all Being so restless that it is hard to sit still: 0 = Not at all Becoming easily annoyed or irritable: 1 = Several days Feeling afraid as if something awful might happen: 0 = Not at all Total KAYA-7 score (0-4 normal; 5-9 mild; 10-14 moderate; 15-21 severe): 6 Source: Developed by Drs. Deion Marshall, Sandra Lopez, Ricardo Raymond and colleagues, with an educational jim from [employer]. KAYA-7 Assessment Billing KAYA-7 Assessment Tool: KAYA-7 Assessment 46181 Review of Systems Const Details: Const Denies chills, Denies fatigue, Denies fever(s), Denies headache(s) and Denies weakness ENT Denies dizziness and Denies headache(s) Card Denies chest pain, Denies lightheadedness, Denies dyspnea and Denies other (Palpitations) Resp Denies cough, Denies dyspnea, Denies wheezing and Denies other ( shortness of breath) GI Denies abdominal pain, Denies melena, Denies hematochezia, Denies change in bowel habits, Denies dyspepsia and Denies nausea Denies hematuria and Denies dysuria Musc Denies abnormal gait, Denies myalgias, Denies arthralgias, Denies numbness and Denies tingling Skin/Breast Denies rash, Denies unusual bruising and Denies wounds Neuro Denies abnormal gait, Denies dizziness, Denies headache(s), Denies memory loss, Denies numbness, Denies Sensory deficit (Neuro), Denies tingling and Denies weakness Psych Denies anxiety, Denies depression, Denies memory loss Endo Denies cold intolerance, Denies fatigue, Denies heat intolerance, Denies polydipsia and Denies polyuria Aller/Immun Denies wheezing Physical exam (Primary Care) Vital Signs: Last Vital Signs Temp 97.8 F 02/13/24 09:02 Pulse 72 02/13/24 09:02 Resp 16 02/13/24 09:02 BP 130/76 02/13/24 09:02 Pulse Ox 96 02/13/24 09:02 Oxygen Delivery Method Room Air 02/13/24 09:02 BMI result Body Mass Index 39.6 Tobacco/Smoking Status: Tobacco use Status Tobacco use date assessed 11/18/23 02/13/24 08:53 Patient Tobacco Use Status Never used Tobacco 02/13/24 08:53 e-Cigarette/Vaping Use Never Used 02/13/24 08:53 Depression Screening Interpretation: Positive Depression Screening Follow-up: Existing condition and In treatment Thrive Assessment: Date of Thrive Assessment Date Thrive assessed 05/20/23 02/13/24 08:53 Const Other: General: no acute distress and well developed Nutritional Appearance: well nourished Orientation/consciousness: patient oriented x3 HENMT Head: Yes normocephalic and Yes atraumatic Eyes General: appearance normal, both eyes and all related structures Pupils: Equal, round and reactive pupils present EOM: EOMs intact bilaterally Resp Effort & Inspection: normal respiratory effort Auscultation: clear to auscultation bilaterally Cardio Rate: regular rate Rhythm: regular rhythm Heart sounds: S1 normal heart sound present, S2 normal heart sound present, no gallops, no murmurs and no rubs GI Palpation (GI): No Abdominal aortic bruit present, Soft to palpation, nontender, No hepatosplenomegaly present and No Rebound tenderness present Auscultation: normal bowel sounds General: Yes no CVA tenderness Back/Spine/Pelvis Back: no CVA tenderness Cervical Spine: cervical ROM normal and No Cervical spine tenderness Thoracic/Lumbar Spine: thoraco-lumbar ROM normal, No pain with thoraco-lumbar ROM, No thoracic spinal tenderness and No lumbar spinal tenderness Extrem General: Yes normal to inspection, No edema and No calf tenderness Skin General: warm and dry. Normal skin color. Normal skin turgor Neuro General: patient oriented x3, gait normal and no focal neuro deficit Cranial nerves: Yes Equal, round and reactive pupils present Cognition (Neuro): normal cognition Gait exam (Neuro): Normal gait present Sensory Exam: No Sensory deficit (Neuro) Psych Appearance: grossly normal Affect: normal affect Attitude: cooperative Thought process: Normal thought process present Results AMB Hemoglobin A1c AMB Hemoglobin A1c 6.4 % Last Edit by Juana Flanagan MA on 02/13/24 09:39 Coding Level of Care Code Est Pt Level 4 (46193) Diagnoses Primary hypertension I10 Hypertension type: primary hypertension Dyslipidemia E78.5 Hypothyroidism (acquired) E03.9 Anxiety and depression F41.9; F32.A Diabetes E11.9 Additional Codes KAYA-7 Assessment Billing - KAYA-7 Assessment Tool: KAYA-7 Assessment 14701 ([id number]) Assessment & Plan Assessment & Plan (1) Hypertension: Code(s): I10 - Essential (primary) hypertension Category: Medical Qualifiers: Hypertension type: primary hypertension Qualified Code(s): I10 - Esse ntial (primary) hypertension Plan: Blood pressure is 130/76, within goal of less than 140/90 Continue current treatment regimen Low-sodium diet encouraged Follow-up in 3 months or sooner with symptoms or concerns Verbalized understanding and agreed with the plan (2) Dyslipidemia: Code(s): E78.5 - Hyperlipidemia, unspecified Category: Medical Plan: Recent LDL level is slightly elevated, 132, HDL level is slightly low, 39; triglycerides and total cholesterol levels are normal Advised to limit foods high in saturated fat and avoid foods high in trans fat Routine exercise encouraged Advised to fast for 10-12 hours, may drink water only, and get blood work done a few days before next visit Follow-up in 3 months Verbalized understanding and agreed with the plan (3) Hypothyroidism (acquired): Code(s): E03.9 - Hypothyroidism, unspecified Category: Medical Plan: Recent TSH level is normal, 3.59 Continue current treatment regimen Will recheck TSH level in 6 months Verbalized understanding and agreed with the plan (4) Anxiety and depression: Code(s): F41.9 - Anxiety disorder, unspecified; F32.A - Depression, unspecified Category: Medical Plan: Reports controlled anxiety and depressive symptoms. However, work has been a significant stressor PHQ-9 and KAYA-7 score revealed mild depression and anxiety respectively Continue current treatment regimen Routine exercise encouraged Follow-up in 3 months Verbalized understanding and agreed with the treatment plan (5) Diabetes: Code(s): E11.9 - Type 2 diabetes mellitus without complications Category: Medical Plan: Last A1c in October 2023 was 6.0%. A1c today is 6.4% She does not want medication treatment at this time. She will continue to make healthy lifestyle changes, including improve diet and regular exercise Healthy diet and routine exercise encouraged Will recheck A1c in 3 months Verbalized understanding and agreed with the treatment plan Orders: Orders Lipid Panel 3 Months E78.5 - Hyperlipidemia, unspecified AMB Hemoglobin A1c Today Z13.9 - Encounter for screening, unspecified Medications: Changed From fluticasone propionate 44 mcg/actuation (Flovent HFA) administer with spacer 2 puffs inhalation BID 30 days 10.6 grams 2RF To fluticasone propionate 44 mcg/actuation administer with spacer 2 puffs inhalation BID 30 days 10.6 grams 4RF Refilled cholecalciferol (vitamin D3) 50 mcg PO DAILY 30 days 30 caps 3RF metoprolol tartrate 25 mg PO BID 60 tabs 3RF venlafaxine ER 37.5 mg PO DAILY 90 caps 1RF amlodipine 5 mg PO DAILY 3 months 90 tabs 1RF I10 - Essential (primary) hypertension levothyroxine 112 mcg PO DAILY 30 days 30 tabs 3RF losartan 100 mg PO DAILY 90 tabs 1RF I10 - Essential (primary) hypertension norethindrone acetate 5 mg PO DAILY 90 tabs 1RF hydrochlorothiazide 25 mg PO DAILY 90 tabs 1RF I10 - Essential (primary) hypertension
[2024-02-13 09:02] VITALS: BP 130/76; PULSE 72; RESP 16; TEMP 36.6; O2SAT 96; BMI 39.6
== END 2024-02-13 09:41 | disposition home or self-care (01) ==
PROVIDERS: PCP Nurse Practitioner Family; Visit Provider Nurse Practitioner Family
DX: E11.69 Type 2 diabetes mellitus with other specified complication (principal); E03.9 Hypothyroidism, unspecified; I10 Essential (primary) hypertension; E78.5 Hyperlipidemia, unspecified; F41.9 Anxiety disorder, unspecified; F32.A Depression, unspecified

== ENCOUNTER → 2024-02-13 08:47 | Outpatient (BNVA) | payer OTHER, SELFPAY | PROVIDERS: PCP Nurse Practitioner Family; Visit Provider Nurse Practitioner Family | DX: I10 Essential (primary) hypertension (principal); E78.5 Hyperlipidemia, unspecified; E03.9 Hypothyroidism, unspecified; E11.9 Type 2 diabetes mellitus without complications; F41.9 Anxiety disorder, unspecified; F32.A Depression, unspecified | CPT/HCPCS: 83036; 96127; 99212 ==

== ENCOUNTER → 2024-06-08 10:41 | Outpatient (AMB) | payer OTHER, SELFPAY | END | disposition home or self-care (01) | PROVIDERS: PCP Nurse Practitioner Family; Visit Provider Nurse Practitioner Family ==

== ENCOUNTER → 2024-06-08 10:41 | Outpatient (BNVA) | payer OTHER, SELFPAY | PROVIDERS: PCP Nurse Practitioner Family; Visit Provider Nurse Practitioner Family | DX: I10 Essential (primary) hypertension (principal); E11.9 Type 2 diabetes mellitus without complications; F41.9 Anxiety disorder, unspecified; F32.A Depression, unspecified; R21 Rash and other nonspecific skin eruption; E55.9 Vitamin D deficiency, unspecified | CPT/HCPCS: 83036; 96127; 99212 ==

== ENCOUNTER 2024-06-29 08:00 | Outpatient (REF) | payer OTHER, SELFPAY ==
--- NOTE | ~2024-06-29 | XR_ITS ---
EXAMINATION: XR PELVIS 1-2 VIEWS HISTORY: M54.50 - Low back pain, unspecified COMPARISON: Comparison is made with the prior examination dated 08/23/2023. FINDINGS: A single AP view of the pelvis is submitted. Osseous mineralization is normal. There is no fracture or dislocation. The hip and sacroiliac joint spaces are preserved. There is a phlebolith in the left hemipelvis. XR/XR pelvis 1-2V IMPRESSION: Unremarkable examination of the pelvis. Electronically signed by: Deion Preciado MD 07/02/2024 08:47 AM EST
--- NOTE | ~2024-06-29 | XR_ITS ---
EXAMINATION: XR LUMBOSACRAL SPINE CLINICAL INFORMATION: M54.50 - Low back pain, unspecified COMPARISON: None available. TECHNIQUE: Three views of the lumbosacral spine. FINDINGS: Levoconvex curvature. Facet joint hypertrophy L4-5 and L5-S1. Endplate sclerosis and decreased intervertebral disc height at L4-5 and L5-S1.. Spina bifida occulta S1. No acute cortical disruption or gross malalignment. XR/XR lumbar spine 2-3V IMPRESSION: Spondylosis L4-5 and L5-S1. Levoconvex scoliosis, mild. Electronically signed by: Griffin Mueller MD 07/02/2024 07:57 AM KATRIN
--- OUTSIDE RECORDS SUMMARY | 2024-06-29 09:00 | XMS_ITS | Clinical Summary ---
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
[2024-06-29 12:27] LABS: Influenza A PCR NEGATIVE (Negative); Influenza B PCR NEGATIVE (Negative); Resp Syncy Virus RNA Qual PCR NEGATIVE (Negative); SARS COV2 PCR INHOUSE NEGATIVE (Negative)
== END 2024-06-29 08:01 | disposition home or self-care (01) ==
LOC: HO.XRAY 08:00
PROVIDERS: PCP Nurse Practitioner Family; Visit Provider Nurse Practitioner Family
DX: Z00.01 Encounter for general adult medical examination with abnormal findings (principal); R05.9 Cough, unspecified; I10 Essential (primary) hypertension; M54.50 Low back pain, unspecified; G89.29 Other chronic pain; J45.20 Mild intermittent asthma, uncomplicated; F41.9 Anxiety disorder, unspecified; F32.A Depression, unspecified; E66.9 Obesity, unspecified; Z71.85 Encounter for immunization safety counseling
CPT/HCPCS: 0241U; 72100; 72170; 96127; 96160; 99212; 99396

== ENCOUNTER 2024-06-29 08:00 | Outpatient (AMB) | payer OTHER, SELFPAY ==
--- NOTE | 2024-06-29 08:02 | A.OFFPC_ITS ---
Vital Signs 06/29/24 08:09 06/29/24 08:29 Height 5 ft 5 in Weight 232 lb BMI 38.6 BP 147/72 H 126/80 Blood Pressure Location Lt brachial Lt brachial Position Sitting Sitting Respiration 16 Pulse 84 Pulse Source Pulse Oximeter Temp 98.3 F Temp Source Oral Pulse Oximetry (%) 96 Oxygen Delivery Method Room Air Intake Visit Reasons: cpe Intake Note: patient here for CPE c/o feeling sick Fluid Designer Required: No Is last menstrual period known: No Post menopausal: No Patient : No Allergies acetaminophen [From Percocet] Allergy (Severe, Verified 06/29/24 08:16) Chest Pain oxycodone [From Percocet] Allergy (Severe, Verified 06/29/24 08:16) Chest Pain Seasonal Allergies Allergy (Intermediate, Verified 06/29/24 08:16) Runny Nose weed pollen Allergy (Mild, Verified 06/29/24 08:16) sneezing, watery eyes blue dye Allergy (Verified 06/29/24 08:16) Rash red dye Allergy (Verified 06/29/24 08:16) Rash Medication List - Last Reconciled 06/29/24 by Ba Walker CNP amlodipine 5 mg PO DAILY 3 months fluticasone propionate 44 mcg/actuation 2 puffs inhalation BID 30 days hydrochlorothiazide 25 mg PO DAILY levothyroxine 112 mcg PO DAILY 30 days loratadine (Claritin) 10 mg PO DAILY 30 days losartan 100 mg PO DAILY metoprolol tartrate 25 mg PO BID norethindrone acetate 5 mg PO DAILY venlafaxine ER 37.5 mg PO DAILY Ventolin HFA 90 mcg/actuation (albuterol sulfate) 1 inh inhalation QID PRN 1 month NS Tobacco use date assessed: 06/29/24 Dental Screening Dental Screen Date: 06/29/24 Did you have a dental visit in the last 12 months?: Yes Did you have a dental problem in the last 6 months where you did not have access to dental care?: No Was dental information given to patient?: Patient has dentist HPI HPI Comments History of Present Illness Details 54-year-old female presents for an exten ded physical exam. She admits to taking her medications as prescribed without adverse reactions. She did not get lab work done before this visit as planned. Acute issue(s) - Reports productive cough with yellow p hlegm, phlegm, at night. Notes positive contacts at work. She had negative covid test. She had body ache and headache about a week ago but those symptoms completely resolved. - Reports chronic low back soreness with occasional intermittent tingling to her right lower extremity. She notes history of multiple falls on her coccyx several years ago. Unsure whether she had x-ray of her lower back and pelvis. She takes Tylenol and ibuprofen with improvement. - Anxiety and depression symptoms are we ll controlled. She takes venlafaxine as prescribed. She has not followed by a therapist or psychiatrist. Past Medical History - Hypertension, diabetes, asthma, obesi ty, hypothyroidism, vitamin-D deficiency, fibroids, anxiety, and depression Social History - Nonsmoker. Does not vape. Drinks 2-3 b eers twice monthly. Consumes cannabis gummy occasionally at night - Has been making healthy dietary choice s. Walks routinely. Generally sleep well Health maintenance - Last eye exam was a year ago at [facility]. She will contact her ophthalmology for routine eye exam - Last dental visit was in 05/2024 - Last Tdap vaccine was in 09/12/2023 - She has never been vaccinated for pneu monia and shingles vaccines. Encouraged to get vaccinated for both. She may get vaccinated from the the local pharmacy - Has not been vaccinated for the flu ; declines vaccination - Last pap smear test was over 3 years a go. Referred to 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 Referred to [facility] gastroenterology for a colonoscopy [facility] Medical History Morbid obesity Surgical History No pertinent past surgical history Family History Mother Mental health disorder Social History Household Members: Family Housing: House Patient Tobacco Use Status: Never used Tobacco e-Cigarette/Vaping Use: Never Used Second Hand Smoke Exposure: No service: No Current occupational status: employed Current occupation: [employer] ([email or web address]) Current occupational exposures/hazards: No Cognitive needs: No Hearing needs: No Vision needs: No Questionnaire PHQ-9 Over the last 2 weeks, how often have you been bothered by any of the following problems? 1. Little interest or pleasure in doing things: not at all 2. Feeling down, depressed, or hopeless: not at all 3. Trouble falling or staying asleep, or sleeping too much: several days 4. Feeling tired or having little energy: several days 5. Poor appetite or overeating: more than half the days 6. Feeling bad about yourself - or that you are a failure or have let yourself or your family down: not at all 7. Trouble concentrating on things, such as reading the newspaper or watching television: not at all 8. Moving or speaking so slowly that other people could have noticed. Or the opposite - being so fidgety or restless that you have been moving around a lot more than usual: not at all 9. Thoughts that you would be better off or of hurting yourself in some way: not at all Total score: 4 Depression Screening Interpretation: Negative Depression Screening Done: Yes 24394 - PHQ-9 Billing: Yes Source: Developed by Drs. Deion Marshall, Sandra Lopez, Ricardo Raymond and colleagues, with an educational jim from [employer]. Thrive Questionnaire Date Thrive assessed: 06/29/24 I am a: Patient What is your living situation today?: I have a steady place to live Within the past 12 months, did the food you bought not last and you didn't have the money to get more?: I choose not to answer this question Within the past 12 months, did you worry whether your food would run out before you got money to buy more?: I choose not to answer this question Do you have trouble paying for medicines?: I choose not to answer this question Do you have trouble getting transportation to medical appointments?: No Do you have trouble paying your heating and electricity bill?: No Do you have trouble taking care of your child, family member or friend?: No Do you have trouble with day-to-day activities such as bathing, preparing meals, shopping, managing finances, etc.?: I choose not to answer this question Are you currently unemployed and looking for a job?: No Are you interested in more education?: I choose not to answer this question Please select the resources that you would like help with: None Currently or been in a relationship where the following occur: I choose not to answer THRIVE Score: 0 AUDIT C Alcohol Use Questionnaire (AUDIT-C) 1. How often do you have a drink containing alcohol?: Never Total Score: 0 KAYA-7 AMB Questionnaire KAYA-7 Date KAYA - 7 assessed: 06/29/24 Feeling nervous, anxious, or on edge: 1 = Several days Not being able to stop or control worryin = Several days Worrying too much about different things: 1 = Several days Trouble relaxin = Not at all Being so restless that it is hard to sit still: 0 = Not at all Becoming easily annoyed or irritable: 0 = Not at all Feeling afraid as if something awful might happen: 0 = Not at all Total KAYA-7 score (0-4 normal; 5-9 mild; 10-14 moderate; 15-21 severe): 3 Source: Developed by Drs. Deion Marshall, Sandra Lopez, Ricardo Raymond and colleagues, with an educational jim from [employer]. KAYA-7 Assessment Billing KAYA-7 Assessment Tool: KAYA-7 Assessment 46395 ACT Questionnaire In the past 4 weeks, how much of the time did your asthma keep you from getting as much done at work, school or at home?: None of the time During the past 4 weeks, how often have you had shortness of breath?: Not at all During the past 4 weeks, how often did your asthma symptoms wake you up at night or earlier than usual in the morning?: Not at all During the past 4 weeks, how often have you had to use your rescue inhaler or nebulizer medication?: Not at all How would you rate your asthma control during the past 4 weeks?: Completely controlled ACT Interpretation: Negative Score: 25 Review of Systems Const Details: Denies chills, Denies fatigue, Denies fever(s), Denies headache(s) and Denies weakness HEENT Denies change in vision, Denies dizziness, Denies headache(s), Denies hearing loss, Denies nasal congestion, Denies sinus pain, Denies sinus pressure and Denies sore throat Card Denies chest pain, Denies lightheadedness, Denies dyspnea and Denies other (palpitations) Resp Reports cough, Denies dyspnea and Denies wheezing GI Denies abdominal pain, Denies melena, Denies hematochezia, Denies change in bowel habits, Denies dyspepsia and Denies nausea Denies hematuria and Denies dysuria Musc Reports low back pain, Denies abnormal gait, Denies numbness and Denies tingling Skin/Breast Denies rash, Denies unusual bruising and Denies wounds Neuro Denies abnormal gait, Denies dizziness, Denies headache(s), Denies memory loss, Denies numbness, Denies Sensory deficit (Neuro), Denies tingling and Denies weakness Psych Denies anxiety, Denies depression and Denies memory loss Endo Denies cold intolerance, Denies fatigue, Denies heat intolerance, Denies polydipsia and Denies polyuria Cr/Lymph Denies easy bleeding and Denies easy bruising Aller/Immun Denies wheezing Physical exam (Primary Care) Vital Signs: Last Vital Signs Temp 98.3 F 06/29/24 08:09 Pulse 84 06/29/24 08:09 Resp 16 06/29/24 08:09 BP 126/80 06/29/24 08:29 Pulse Ox 96 06/29/24 08:09 Oxygen Delivery Method Room Air 06/29/24 08:09 BMI result Body Mass Index 38.6 Tobacco/Smoking Status: Tobacco use Status Tobacco use date assessed 06/29/24 06/29/24 08:08 Patient Tobacco Use Status Never used Tobacco 06/29/24 08:08 e-Cigarette/Vaping Use Never Used 06/29/24 08:08 PHQ-9: PHQ-9 Score PHQ-9: Total score 4 06/29/24 08:14 Depression Screening Interpretation: Negative Thrive Assessment: Date of Thrive Assessment Date Thrive assessed 06/29/24 06/29/24 08:08 Currently or been in a relationship where the following occur: I choose not to answer Const Other: General: no acute distress, well developed, alert and awake Nutritional Appearance: well nourished Orientation/consciousness: patient oriented x3 HENMT Head: Yes normocephalic and Yes atraumatic Ears: hearing grossly normal bilaterally and TM's normal bilaterally General nose exam: Normal external nose present and Normal nares present Mouth: Normal oral and palatal mucosa present and moist mucous membranes Teeth and gingiva: dentition normal Throat: Yes oropharynx normal Eyes Pupils: Equal, round and reactive pupils present and Pupil accommodation reflex normal EOM: EOMs intact bilaterally Neck Neck: Yes normal visual inspection, Yes no lymphadenopathy and Yes trachea midline Thyroid: Thyroid normal Carotids: no bruits Lymphatic: no lymphadenopathy noted Chest Chest palpation & inspection: normal inspection of the chest Resp Effort & Inspection: normal respiratory effort Auscultation: clear to auscultation bilaterally Cardio Rate: regular rate Rhythm: regular rhythm Heart sounds: S1 normal heart sound present, S2 normal heart sound present, no gallops, no murmurs and no rubs Bruits: no abdominal aortic bruits and no carotid bruits GI Palpation (GI): No Abdominal aortic bruit present, Soft to palpation, nontender, No hepatosplenomegaly present and No Rebound tenderness present Auscultation: normal bowel sounds General: Yes no CVA tenderness Back/Spine/Pelvis Back: no CVA tenderness Cervical Spine: cervical ROM normal and No Cervical spine tenderness Thoracic/Lumbar Spine: thoraco-lumbar ROM normal, No pain with thoraco-lumbar ROM, No thoracic spinal tenderness and positive lumbar spinal tenderness Skin General: warm and dry. Normal skin color. Normal skin turgor Lesions: no lesions Rashes: no rashes Trauma: no lacerations or abrasions Wounds: no wounds Nails: normal Neuro General: patient oriented x3, gait normal and CN's II-XI intact bilaterally Cranial nerves: Yes Equal, round and reactive pupils present Cognition (Neuro): normal cognition Gait exam (Neuro): Normal gait present Motor exam (neuro): 5/5 motor strength present throughout Sensory Exam: No Sensory deficit (Neuro) Deep tendon reflexes (DTR's): Right patellar reflex intensity grade: 2+ and Left patellar reflex intensity grade: 2+ Extrem General: Yes normal to inspection, No edema and No calf tenderness Psych Appearance: grossly normal Affect: normal affect Attitude: cooperative Thought process: Normal thought process present Coding Level of Care Code Est Pt Level 4 (95988) Est Pt Prev Care 40-64y(86842) Diagnoses Normal physical examination, routine Z00.00 Primary hypertension I10 Hypertension type: primary hypertension Cough R05.9 Chronic low back pain M54.50; G89.29 Asthma, mild intermittent, well-controlled J45.20 Anxiety and depression F41.9; F32.A Obesity (BMI 30-39.9) E66.9 Screen for colon cancer Z12.11 Pap smear for cervical cancer screening Z12.4 Vaccine counseling Z71.85 Additional Codes KAYA-7 Assessment Billing - KAYA-7 Assessment Tool: KAYA-7 Assessment 37199 ([id number]) PHQ-9 - 59264 - PHQ-9 Billing: Yes ([id number]) Asthma Control Questionnaire - ACT Interpretation: Negative ([id number]) Assessment & Plan Assessment & Plan (1) Normal physical examination, routine: Code(s): Z00.00 - Encounter for general adult medical examination without abnormal findings Category: Medical Plan: No significant physical limitations noted. Advised to get lab work done in follow-up in 2-3 weeks for telehealth visit for labs review. Return sooner with symptoms or concerns. Verbalized understanding and agreed with treatment plan. (2) Hypertension: Code(s): I10 - Essential (primary) hypertension Category: Medical Qualifiers: Hypertension type: primary hypertension Qualified Code(s): I10 - Essential (primary) hypertension Plan: Resting blood pressure is 126/80, slightly above goal of less than 130/80. Continue current treatment regimen. Will continue to monitor. Verbalized understanding and agreed with treatment plan. (3) Cough: Code(s): R05.9 - Cough, unspecified Category: Medical Plan: Likely viral illness though possibly allergies. No exam evidence of bacterial infection Viral illness There is no antibiotic medication for viruses.? They must run their course.? Most average 5-7 days but 7-10 days is not uncommon and up to 14 days is still possible.? A cough is often the last symptom to resolve and this can last for weeks in some cases. Rest Hydrate well -? Drink plenty of fluids.? Especially water. Tylenol or ibuprofen for muscle aches, headache, fever/discomfort Benzonatate as prescribed for cough Cannot rule out COVID-19/RSV/Flu infection Nasal swab acquired and will be sent to the lab Return for new or worsening symptoms Verbalized understanding and agreed with treatment plan. (4) Chronic low back pain: Code(s): M54.50 - Low back pain, unspecified; G89.29 - Other chronic pain Category: Medical Plan: Chronic low back soreness with occasional intermittent tingling to her right lower extremity. She has history of multiple falls on her coccyx several years ago. Unsure whether she had x-ray of her lower back and pelvis. She takes Tylenol and ibuprofen with improvement. Lumbar spine tenderness to palpation. Continue to take Tylenol or ibuprofen as needed. Warm/cool compresses encouraged. X-ray of lumbar spine and right pelvis ordered. Will review results and make changes as needed. Verbalized understanding and agreed with treatment plan. (5) Asthma, mild intermittent, well-controlled: Code(s): J45.20 - Mild intermittent asthma, uncomplicated Category: Medical Plan: ACT score is 25, controlled. Continue current treatment regimen. Follow-up with symptoms or concerns. Verbalized understanding and agreed with the plan. (6) Anxiety and depression: Code(s): F41.9 - Anxiety disorder, unspecified; F32.A - Depression, unspecified Category: Medical Plan: Controlled anxiety and depressive symptoms. Continue current treatment regimen. Follow-up with symptoms or concerns. Verbalized understanding and agreed with treatment plan. (7) Obesity (BMI 30-39.9): Code(s): E66.9 - Obesity, unspecified Category: Medical Plan: She currently weighs 232 lb, BMI is 38.6. Healthy diet and routine exercise encouraged. May refer to erp specialist or weight management as needed. Verbalized understanding and agreed with the plan. (8) Screen for colon cancer: Code(s): Z12.11 - Encounter for screening for malignant neoplasm of colon Category: Medical Plan: She has never had a colonoscopy done. Referred to [facility] gastroenterology for a colonoscopy. (9) Pap smear for cervical cancer screening: Code(s): Z12.4 - Encounter for screening for malignant neoplasm of cervix Category: Medical Plan: Last pap smear test was over 3 years ago. [address] to [facility] cloth bleaching range operator chief for a pap smear test. (10) Vaccine counseling: Code(s): Z71.85 - Encounter for immunization safety counseling Category: Medical Plan: She has never been vaccinated for pneumonia and shingles vaccines. Instructed on the importance of pneumonia and shingles vaccines and encouraged to get vaccinated for both. She may get vaccinated from the the local pharmacy. Verbalized understanding and agreed with the plan. Orders: Orders XR lumbar spine 2-3V Today G89.29 - Other chronic pain, M54.50 - Low back pain, unspecified SARS-CoV2/FLU/RSV Today R05.9 - Cough, unspecified XR pelvis 1-2V Today G89.29 - Other chronic pain, M54.50 - Low back pain, unspecified Referrals [facility] Referral Z12.4 - Encounter for screening for malignant neoplasm of cervix Gastroenterology Referral Z12.11 - Encounter for screening for malignant neoplasm of colon Medications: New benzonatate 100 mg PO BID PRN 10 caps 0RF cough
--- OUTSIDE RECORDS SUMMARY | 2024-06-29 08:05 | XMS_ITS | Clinical Summary ---
Author Organization [employer] Address [address] [place] [address] Care Team Providers Care Flight Engineer Helicopter Name Role Phone Mishel Ayala Unavailable Unavailable Allergies Active Allergy Reactions Criticality Noted Date Comments Blue Dyes (Parenteral) 09/16/2022 Red Dye #40 (Allura Red) 09/16/2022 Medications albuterol 108 (90 Base) MCG/ACT inhaler ProAir HFA 90 mcg/actuation aerosol inhaler Active Ventolin HFA 108 (90 Base) MCG/ACT inhaler INHALE 1 PUFF BY MOUTH 4 TIMES DAILY NEEDED FOR SHORTNESS OF BREATH AND FOR WHEEZING 3 Active levothyroxine (Synthroid, Levoxyl) 50 MCG tablet TAKE 2 TABLETS BY MOUTH ONCE DAILY IN THE MORNING 3 Active norethindrone (Aygestin) 5 MG tablet Take 5 mg by mouth in the morning. 3 Active amLODIPine (Norvasc) 5 MG tablet Take 5 mg by mouth in the morning. 3 Active metoprolol tartrate (Lopressor) 25 MG tablet Take 25 mg by mouth 2 times daily. 3 Active hydroCHLOROthia zide (HYDRODiuril) 25 MG tablet Take 25 mg by mouth in the morning. 3 Active Cholecalciferol (VITAMIN D3 PO) Take by mouth. Active Multiple Vitamin (multivitamin) capsule Take 1 capsule by mouth in the morning. Active Active Problems Problem Noted Date Diagnosed Date Primary hypertension 09/16/2022 Kaleb's thyroiditis 09/16/2022 Mild asthma without complication 09/16/2022 Palpitations 09/16/2022 Family History Medical History Relation Name Comments Cataracts Maternal Grandmother Relation Name Status Comments Maternal Grandmother Social History Tobacco Use Types Packs/Day Years Used Date Smoking Tobacco: Never Tobacco Cessation:Counseling Given: Not Answered Housing Stability Answer Date Recorded What is your housing situation today? I have trevor romero 03/01/[address] you li ve. Do you have problems with any of the following? None of the above 03/01/2023 Food Insecurity Answer Date Recorded Within the past 12 months, y ou worried that your food would run out before you got money to buy more: Sometimes True 2022 Within the past 12 months,th e food you bought just didn't last and you didn't have enough money to get more: Sometimes True 03/01/2023 Transportation Answer Date Recorded In the past 12 months, has l ack of transportation kept you from medical appts, meetings, work or from getting things needed for daily living? No 03/01/2023 Utilities Answer Date Recorded In the past 12 months, has t he electric, gas, oil or water company threatened to shut off services in your home? 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 Not on file Not on file Last Filed Vital Signs Vital Sign Reading Time Taken Comments Blood Pressure 120/80 09/16/2022 10:33 AM EDT Pulse - - Temperature 36.5 ??C (97.7 ??F) 09/16/2022 10:33 AM E DT Respiratory Rate - - Oxygen Saturation - - Inhaled Oxygen Concentration - - Weight - - Height - - Body Mass Index - - Plan of Treatment Health Maintenance Due Date Last Done Comments CT Colonography 1969 Colonoscopy 1969 Colorectal Cancer Screening 1969 Depression Screening 1969 FIT DNA/Cologuard 1969 FIT 1969 FOBT 1969 HIV Screening 1969 Lipid Panel 1969 Sigmoidoscopy 1969 Alcohol/Substance Use Screening 1981 Tobacco Screening 1981 Hepatitis C Screening 1987 DTaP/Tdap/Td Vaccines (1 - Tdap) 1988 Hepatitis B Vaccines (1 of 3 - 19+ 3-dose series) 1988 Pneumococcal Vaccine: 50+ Ye ars (1 of 2 - PCV) 1988 Pap Smear 1990 Cervical Cancer Screening 1999 HPV/Cotest 1999 Mammogram 2009 Zoster Vaccines (1 of 2) 2019 SDOH Screening 06/14/2023 06/14/2022 COVID-19 Vaccine (1 - 2023-2 5 season) 2024 Influenza Vaccine (#1) 2024 RSV Patients and Pa tients Aged 60 years or older (1 - 1-dose 75+ series) 2044 HIB Vaccines Aged Out No longer eligi ble based on patient's age to complete this topic HPV Vaccines Aged Out No longer eligi ble based on patient's age to complete this topic Hepatitis A Vaccines Aged Out No long er eligible based on patient's age to complete this topic IPV Vaccines Aged Out No longer eligi ble based on patient's age to complete this topic Meningococcal Vaccine Aged Out No chiara tello eligible based on patient's age to complete this topic RSV under 20 months Aged Out No longe r eligible based on patient's age to complete this topic Rotavirus Vaccines Aged Out No longer eligible based on patient's age to complete this topic Insurance [facility] [facility] [facility] Care Teams Flight Engineer Helicopter Relationship Specialty Start Date End Date Mishel Ayala Community Health Worker 06/14/22
[2024-06-29 08:09] VITALS: BP 147/72; PULSE 84; RESP 16; TEMP 36.8; O2SAT 96; BMI 38.6
[2024-06-29 08:29] VITALS: BP 126/80
== END 2024-06-29 08:39 | disposition home or self-care (01) ==
PROVIDERS: PCP Nurse Practitioner Family; Visit Provider Nurse Practitioner Family
DX: Z00.00 Encounter for general adult medical examination without abnormal findings (principal); I10 Essential (primary) hypertension; R05.9 Cough, unspecified; Z68.38 Body mass index [BMI] 38.0-38.9, adult; E66.9 Obesity, unspecified; M54.50 Low back pain, unspecified; G89.29 Other chronic pain; J45.20 Mild intermittent asthma, uncomplicated; F41.9 Anxiety disorder, unspecified; F32.A Depression, unspecified; Z12.11 Encounter for screening for malignant neoplasm of colon

== ENCOUNTER 2024-06-29 08:52 | Outpatient (REF) | payer OTHER, SELFPAY ==
[2024-06-29 11:04] LABS: MANUAL DIFF FLAG NO
[2024-06-29 11:05] LABS: Appearance Urine Clear; Color Urine Yellow; Glucose Urine UA Negative (Negative); Leukocyte Esterase Urine Small (1+) (Negative); Nitrite Urine Negative (Negative); UMIC TRIGGER UACC YES; Urine Blood Negative (Negative); Urine Ketones Negative (Negative); Urine Protein Negative (Neg-Trace)
[2024-06-29 11:10] LABS: Basophils Absolute Auto 0.1 X10*3/uL (0.0-0.2); Basophils Percent Auto 0.7 % (0-2); Eosinophils Absolute Auto 0.3 X10*3/uL (0.0-0.4); Eosinophils Percent Auto 2.6 % (0-4); Hematocrit 45.1 % (37.0-47.0); Imm Gran Abs Auto 0.04 X10*3/uL (0.00-0.03); Imm Gran Pct Auto 0.4 % (0.0-0.4); Lymphocytes Absolute Auto 1.6 X10*3/uL (1.2-4.9); Lymphocytes Percent Auto 16.1 % (20-40); Mean Corpuscular HGB Conc 33.3 g/dl (31.0-35.0); Mean Corpuscular Hemoglobin 30.2 pg (27.0-33.0); Mean Corpuscular Volume 90.7 fL (80.0-98.0); Mean Platelet Volume 9.1 fL (9.4-12.3); Monocytes Absolute Auto 0.9 X10*3/uL (0.1-1.2); Monocytes Percent Auto 8.8 % (2-11); Neutrophils Percent Auto 71.4 % (45-73); Platelet Count 426 X10*3/uL (160-400); Red Blood Count 4.97 X10*6/uL (4.20-5.50); Red Cell Distribution Width 12.6 % (11.0-16.0); White Blood Count 9.8 X10*3/uL (4.8-10.8)
[2024-06-29 11:19] LABS: Bacteria Urine 1+ (None Seen); Hyaline Casts Urine 0-2 /LPF (0-2); RBC Urine 0-2 /HPF (0-2); UACC Culture Trigger YES; WBC Urine 0-5 /HPF (0-5)
[2024-06-29 11:40] LABS: Creatinine Urine 149.83 mg/dL; Microalbum/Creatinine Ratio Ur 7.3 ug/mg cr (<30)
[2024-06-29 11:44] LABS: Alanine Aminotransferase 21 U/L (0-31); Albumin Level 4.2 g/dL (3.5-5.0); Alkaline Phosphatase 94 U/L (39-117); Anion Gap 10 (12-20); Aspartate Amino Transferase 25 U/L (5-31); Bilirubin Total 0.8 mg/dL (0.0-1.0); Blood Urea Nitrogen 12 mg/dL (9-16); Calcium 9.7 mg/dL (8.4-10.2); Carbon Dioxide 29 mmol/L (22-29); Chloride 106 mmol/L (96-108); Cholesterol 205 mg/dL (<200); Estimated Glomerular Filt Rate > 60; Glucose Fasting 112 mg/dL (60-99); HDL Cholesterol 38 mg/dL (>40); LDL Cholesterol Calculated 149 mg/dL (<100); Sodium 141 mmol/L (135-145); Total Protein 8.1 g/dL (6.5-8.0); Triglycerides 92 mg/dL (<150)
[2024-06-29 12:03] LABS: TSH reflex Free T4 1.02 uIU/mL (0.32-4.0); Vitamin D 25-OH Total 40.4 ng/mL (>30)
== END 2024-06-29 08:53 | disposition home or self-care (01) ==
LOC: HO.WFDLDS 08:52
PROVIDERS: Visit Provider Nurse Practitioner Family
DX: Z00.00 Encounter for general adult medical examination without abnormal findings (principal); E78.5 Hyperlipidemia, unspecified; E55.9 Vitamin D deficiency, unspecified
CPT/HCPCS: 36415; 80053; 80061; 81001; 81003; 82043; 82306; 82570; 84443; 85025; 87086

== ENCOUNTER → 2024-06-29 10:29 | Outpatient (BNV) | payer OTHER, SELFPAY | PROVIDERS: PCP Nurse Practitioner Family; Visit Provider Radiology Diagnostic Radiology | DX: M47.817 Spondylosis without myelopathy or radiculopathy, lumbosacral region (principal); M54.50 Low back pain, unspecified | CPT/HCPCS: 72100; 72170 ==

== ENCOUNTER 2024-09-21 15:13 | Outpatient (REF) | payer OTHER, SELFPAY ==
--- OUTSIDE RECORDS SUMMARY | 2024-09-21 15:15 | XMS_ITS | Clinical Summary ---
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 file Not on file Not [...] Screening 1969 Lipid Panel 1969 Sigmoidoscopy 1969 Disability Screening 1969 Alcohol/Substance Use Screening 1981 Tobacco Screening [...] patient's age to complete this topic Meningococcal B Vaccine Aged Out No l onger eligible based on patient's age to complete this topic Meningococcal Vaccine Aged Out No chiara tello eligible based on patient's age to complete this topic RSV under 20 months Aged Out No longe r eligible based on patient's age to complete this topic Rotavirus Vaccines Aged Out No longer eligible based on patient's age to complete this topic Insurance [facility] Care Teams College Advisor Relationship Specialty Start Date End Date Mishel Ayala Community Health Worker 06/14/22
== END 2024-09-21 15:14 | disposition home or self-care (01) ==
LOC: HO.MAMMO 15:13
PROVIDERS: PCP Nurse Practitioner Family; Visit Provider Nurse Practitioner Family
DX: Z12.31 Encounter for screening mammogram for malignant neoplasm of breast (principal)
CPT/HCPCS: 77063; 77067

== ENCOUNTER → 2024-09-21 16:00 | Outpatient (BNV) | payer OTHER, SELFPAY | PROVIDERS: PCP Nurse Practitioner Family; Visit Provider Internal Medicine | DX: Z12.31 Encounter for screening mammogram for malignant neoplasm of breast (principal) | CPT/HCPCS: 77063; 77067 ==

== ENCOUNTER 2024-11-19 12:45 | Outpatient (AMB) | payer OTHER, SELFPAY ==
--- NOTE | 2024-11-19 12:47 | MHC.PC.OV ---
Vital Signs 11/19/24 12:55 Height 5 ft 5 in Weight 232 lb 4 oz BMI 38.6 BP 143/69 H Blood Pressure Location Lt brachial Position Sitting Respiration 16 Pulse 83 Pulse Source Pulse Oximeter Temp 98.3 F Temp Source Oral Pulse Oximetry (%) 98 Oxygen Delivery Method Room Air Intake Visit Reasons: Stress /headache Intake Note: patient here c/o stress and headaches. she is stress with work and her kids father/ just on . Hr Advisor Required: No Is last menstrual period known: No Post menopausal: No Patient : No Allergies acetaminophen (From Percocet) Allergy (Severe, Verified 11/19/24 13:02) Chest Pain oxycodone (From Percocet) Allergy (Severe, Verified 11/19/24 13:02) Chest Pain Seasonal Allergies Allergy (Intermediate, Verified 11/19/24 13:02) Runny Nose weed pollen Allergy (Mild, Verified 11/19/24 13:02) sneezing, watery eyes blue dye Allergy (Verified 11/19/24 13:02) Rash red dye Allergy (Verified 11/19/24 13:02) Rash Medication List - Last Reconciled 11/19/24 by Ba Walker CNP amlodipine 5 mg PO DAILY 3 months benzonatate 100 mg PO BID PRN fluticasone propionate 44 mcg/actuation 2 puffs inhalation BID 30 days hydrochlorothiazide 25 mg PO DAILY levothyroxine 112 mcg PO DAILY 30 days loratadine (Claritin) 10 mg PO DAILY 30 days losartan 100 mg PO DAILY metoprolol tartrate 25 mg PO BID norethindrone acetate 5 mg PO DAILY venlafaxine ER 37.5 mg PO DAILY Ventolin HFA 90 mcg/actuation (albuterol sulfate) 1 inh inhalation QID PRN 1 month NS Tobacco use date assessed: 11/19/24 Dental Screening Dental Screen Date: 11/19/24 Did you have a dental visit in the last 12 months?: Yes Did you have a dental problem in the last 6 months where you did not have access to dental care?: No Was dental information given to patient?: Patient has dentist HPI HPI Comments History of Present Illness Details 54-year-old female presents with complaints of significant work and personal stressors. Work stressors have been ongoning for the past 2 months. Her daughter's father whom the patient no longer had a relationship with but cared for, 4 days ago. She also notes occipital headaches and squinting of both eyes in the past few days. Her last eye exam was over a year ago with [facility]. Her mood is generally well controlled when she is home. She reports intermittent frustration and verbal outburst on customers when she is at work. She intends to find a new job. She took a week off from work and currently on break. 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 1. Little interest or pleasure in doing things: not at all 2. Feeling down, depressed, or hopeless: nearly every day 3. Trouble falling or staying asleep, or sleeping too much: more than half the days 4. Feeling tired or having little energy: nearly every day 5. Poor appetite or overeating: not at all 6. Feeling bad about yourself - or that you are a failure or have let yourself or your family down: not at all 7. Trouble concentrating on things, such as reading the newspaper or watching television: several days 8. Moving or speaking so slowly that other people could have noticed. Or the opposite - being so fidgety or restless that you have been moving around a lot more than usual: more than half the days 9. Thoughts that you would be better off or of hurting yourself in some way: not at all Total score: 11 Depression Screening Interpretation: Positive Depression Screening Follow-up: Existing condition, In treatment, New Medication prescribed and Community Mental Health Worker F/U Depression Screening Done: Yes 65588 - PHQ-9 Billing: Yes Source: Developed by Drs. Deion Marshall, Sandra Lopez, Ricardo Raymond and colleagues, with an educational jim from [employer]. Thrive Questionnaire Date Thrive assessed: 06/01/24 I am a: Patient What is your living situation today?: I have a steady place to live Within the past 12 months, did the food you bought not last and you didn't have the money to get more?: I choose not to answer this question Within the past 12 months, did you worry whether your food would run out before you got money to buy more?: I choose not to answer this question Do you have trouble paying for medicines?: I choose not to answer this question Do you have trouble getting transportation to medical appointments?: No Do you have trouble paying your heating and electricity bill?: No Do you have trouble taking care of your child, family member or friend?: No Do you have trouble with day-to-day activities such as bathing, preparing meals, shopping, managing finances, etc.?: I choose not to answer this question Are you currently unemployed and looking for a job?: No Are you interested in more education?: I choose not to answer this question Please select the resources that you would like help with: None Currently or been in a relationship where the following occur: I choose not to answer THRIVE Score: 0 KAYA-7 AMB Questionnaire KAYA-7 Date KAYA - 7 assessed: 11/19/24 Feeling nervous, anxious, or on edge: 1 = Several days Not being able to stop or control worryin = Nearly every day Worrying too much about different things: 3 = Nearly every day Trouble relaxin = More than half the days Being so restless that it is hard to sit still: 1 = Several days Becoming easily annoyed or irritable: 3 = Nearly every day Feeling afraid as if something awful might happen: 0 = Not at all Total KAYA-7 score (0-4 normal; 5-9 mild; 10-14 moderate; 15-21 severe): 13 Source: Developed by Sandra Byrnes Kurt Kroenke and colleagues, with an educational jim from [employer]. KAYA-7 Assessment Billing KAYA-7 Assessment Tool: KAYA-7 Assessment 54728 Review of Systems Const Details: Const Denies chills, Denies fatigue, Denies fever(s), Reports headache(s) and Denies weakness ENT Denies dizziness and Reports headache(s) Card Denies chest pain, Denies lightheadedness, Denies dyspnea and Denies other (Palpitations) Resp Denies cough, Denies dyspnea, Denies wheezing and Denies other ( shortness of breath) GI Denies abdominal pain, Denies melena, Denies hematochezia, Denies change in bowel habits, Denies dyspepsia and Denies nausea Denies hematuria and Denies dysuria Musc Denies abnormal gait, Denies myalgias, Denies arthralgias, Denies numbness and Denies tingling Skin/Breast Denies rash, Denies unusual bruising and Denies wounds Neuro Denies abnormal gait, Denies dizziness, Denies headache(s), Denies memory loss, Denies numbness, Denies Sensory deficit (Neuro), Denies tingling and Denies weakness Psych Denies anxiety, Denies depression, Denies memory loss Endo Denies cold intolerance, Denies fatigue, Denies heat intolerance, Denies polydipsia and Denies polyuria Aller/Immun Denies wheezing Physical exam (Primary Care) Tobacco/Smoking Status: Tobacco use Status Tobacco use date assessed 06/29/24 11/13/24 10:44 Patient Tobacco Use Status Never used Tobacco 11/13/24 10:44 e-Cigarette/Vaping Use Never Used 11/13/24 10:44 Depression Screening Interpretation: Positive Depression Screening Follow-up: Existing condition, In treatment, New Medication prescribed and Community Mental Health Worker F/U Thrive Assessment: Date of Thrive Assessment Date Thrive assessed 06/01/24 11/13/24 10:44 Currently or been in a relationship where the following occur: I choose not to answer Const Other: General: no acute distress and well developed Nutritional Appearance: well nourished Orientation/consciousness: patient oriented x3 HENMT Head: Yes normocephalic and Yes atraumatic Eyes General: appearance normal, both eyes and all related structures Pupils: Equal, round and reactive pupils present EOM: EOMs intact bilaterally Resp Effort & Inspection: normal respiratory effort Auscultation: clear to auscultation bilaterally Cardio Rate: regular rate Rhythm: regular rhythm Heart sounds: S1 normal heart sound present, S2 normal heart sound present, no gallops, no murmurs and no rubs GI Palpation (GI): No Abdominal aortic bruit present, Soft to palpation, nontender, No hepatosplenomegaly present and No Rebound tenderness present Auscultation: normal bowel sounds General: Yes no CVA tenderness Back/Spine/Pelvis Back: no CVA tenderness Cervical Spine: cervical ROM normal and No Cervical spine tenderness Thoracic/Lumbar Spine: thoraco-lumbar ROM normal, No pain with thoraco-lumbar ROM, No thoracic spinal tenderness and No lumbar spinal tenderness Extrem General: Yes normal to inspection, No edema and No calf tenderness Skin General: warm and dry. Normal skin color. Normal skin turgor Neuro General: patient oriented x3, gait normal and no focal neuro deficit Cranial nerves: Yes Equal, round and reactive pupils present Cognition (Neuro): normal cognition Gait exam (Neuro): Normal gait present Sensory Exam: No Sensory deficit (Neuro) Psych Appearance: grossly normal Affect: Constricted affect Attitude: cooperative Thought process: Normal thought process present Coding Level of Care Code Est Pt Level 4 (14081) Diagnoses Dyslipidemia E78.5 Anxiety and depression F41.9; F32.A Grieving F43.21 Headache R51.9 Visual disturbance H53.9 HTN, goal below 130/80 I10 Additional Codes KAYA-7 Assessment Billing - KAYA-7 Assessment Tool: KAYA-7 Assessment 77129 ([id number]) PHQ-9 - 44747 - PHQ-9 Billing: Yes ([id number]) Assessment & Plan Assessment & Plan (1) Dyslipidemia: Code(s): E78.5 - Hyperlipidemia, unspecified Category: Medical Plan: Recent total cholesterol and LDL levels was slightly elevated, 205 and 149 respectively, HDL level is slightly low, 38. Advised to limit foods high in saturated fat and avoid foods high in trans fat. Routine exercise encouraged. Fast for 10-12 hours, may drink water, perform lipid panel blood work 2-3 days before next visit. Verbalized understanding and agreed with the plan. (2) Anxiety and depression: Code(s): F41.9 - Anxiety disorder, unspecified; F32.A - Depression, unspecified Category: Medical Plan: 54-year-old female presents with complaints of significant work and personal stressors. Work stressors have been ongoning for the past 2 months. Her daughter's father whom the patient no longer had a relationship with but cared for, 4 days ago. She also notes occipital headaches and squinting of both eyes in the past few days. Her last eye exam was over a year ago with [facility]. Her mood is generally well controlled when she is home. She reports intermittent frustration and verbal outburst on customers when she is at work. She intends to find a new job. She took a week off from work and currently on break. PHQ-9 and KAYA-7 scores revealed moderate depression and anxiety respectively. Hydroxyzine 25 mg 3 times a day as needed ordered to target anxiety; advised to take as prescribed. Instructed on the risks, benefits, and potential adverse reactions of the medication. She met with the [facility]W who will refer her to a therapist. Follow-up in 2 weeks or sooner with worsening or new symptoms. Verbalized understanding and agreed with the plan. (3) Grieving: Code(s): F43.21 - Adjustment disorder with depressed mood Category: Medical Plan: Plan as above. (4) Headache: Code(s): R51.9 - Headache, unspecified Category: Medical Plan: May be related to stressors or visual disturbances. May take Tylenol ibuprofen as needed. Encouraged to schedule an appointment with her orthopedics pediatric physician for an eye exam. Verbalized understanding and agreed with the plan. (5) Visual disturbance: Code(s): H53.9 - Unspecified visual disturbance Category: Medical Plan: Plan as above. (6) HTN, goal below 130/80: Code(s): I10 - Essential (primary) hypertension Category: Medical Plan: Resting blood pressure is 143/69, above goal of less than 130/80. Likely related to stressors or headaches. Continue current treatment regimen. Low-sodium diet encouraged. Follow-up in 2 weeks or sooner with symptoms or concerns. Verbalized understanding and agreed with plan. Orders: Orders Lipid Panel Today E78.5 - Hyperlipidemia, unspecified Medications: New hydroxyzine HCl 25 mg PO TID PRN 90 tabs 1RF anxiety
[2024-11-19 12:55] VITALS: BP 143/69; PULSE 83; RESP 16; TEMP 36.8; O2SAT 98; BMI 38.6
--- OUTSIDE RECORDS SUMMARY | 2024-11-19 13:27 | XMS_ITS | Clinical Summary ---
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
== END 2024-11-19 13:38 | disposition home or self-care (01) ==
PROVIDERS: PCP Nurse Practitioner Family; Visit Provider Nurse Practitioner Family
DX: E78.5 Hyperlipidemia, unspecified (principal); F41.9 Anxiety disorder, unspecified; F32.A Depression, unspecified; F43.21 Adjustment disorder with depressed mood; R51.9 Headache, unspecified; H53.9 Unspecified visual disturbance; I10 Essential (primary) hypertension

== ENCOUNTER → 2024-11-19 12:45 | Outpatient (BNVA) | payer OTHER, SELFPAY | PROVIDERS: PCP Nurse Practitioner Family; Visit Provider Nurse Practitioner Family | DX: I10 Essential (primary) hypertension (principal); E78.5 Hyperlipidemia, unspecified; F41.9 Anxiety disorder, unspecified; F32.A Depression, unspecified; F43.21 Adjustment disorder with depressed mood; R51.9 Headache, unspecified; H53.9 Unspecified visual disturbance | CPT/HCPCS: 96127; 99212 ==

== ENCOUNTER 2024-12-07 10:21 | Outpatient (REF) | payer OTHER, SELFPAY ==
--- NOTE | ~2024-12-07 | MM_ITS ---
EXAMINATIONS: 1. MM DIAGNOSTIC DIGITAL BREAST TOMOSYNTHESIS, RIGHT 2. US BREAST LIMITED RIGHT CLINICAL INFORMATION: Callback from screening for right breast focal asymmetry in the upper-outer quadrant posterior depth. COMPARISON: September 21, 2024 and August 04, 2023 TECHNIQUE: Digital breast tomosynthesis is performed in full field ML90 degrees views along with computer-aided detection (CAD). Synthesized 2D images are generated from the tomosynthesis. Spot compression tomosynthesis images were obtained. FINDINGS: BREAST COMPOSITION: The breasts are heterogeneously dense, which may obscure small masses (ACR BI-RADS breast composition Category c). RIGHT BREAST: Previously suggested focal asymmetry in the upper outer quadrant partially effaces with spot compression. On today's images, the local parenchyma has similar appearance to prior studies as far back as 2023. Targeted ultrasound of the right breast was performed at the location of the mammographic finding. The survey throughout the upper outer quadrant did not reveal suspicious sonographic findings. MM/MM tomosynthesis added views R IMPRESSION: RIGHT BREAST: Negative, no mammographic evidence of malignancy. Normal interval follow-up is recommended in 12 months. ASSESSMENT: BI-RADS 1 - Negative RECOMMENDATION: 1 year F/U Results were provided to the patient at time of visit by the technologist. This patient's information was entered into a reminder system with a target due date for their next mammogram. Electronically signed by: Jus Krishna MD 12/07/2024 11:15 AM EDT Workstation: [id number]
--- OUTSIDE RECORDS SUMMARY | 2024-12-07 10:25 | XMS_ITS | Clinical Summary ---
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 on file Not [...] Mass Index - - Plan of Treatment Upcoming Encounters Date Type Department Care Team (Late st Contact Info) Description 01/04/2025 12:00 PM EDT Office Visit [place] [facility] [address] [place] [address] Alta Mercado, OD [address] [place] [address] Health Maintenance Due Date Last Done Comments CT Colonography 1969 Colonoscopy 1969 Colorectal Cancer Screening 1969 Depression Screening 1969 FIT DNA/Cologuard 1969 FIT 1969 FOBT 1969 HIV Screening 1969 Lipid Panel 1969 Sigmoidoscopy 1969 Disability Screening 1969 Alcohol/Substance Use Screening 1981 Tobacco Screening 1981 Hepatitis C Screening 1987 Hepatitis B Vaccines (1 of 3 - 19+ 3-dose series) 1988 Pneumococcal Vaccine: 50+ Ye ars (1 of 2 - PCV) 1988 Pap Smear 1990 Cervical Cancer Screening 1999 HPV/Cotest 1999 Mammogram 2009 Zoster Vaccines (1 of 2) 2019 SDOH Screening 06/14/2023 06/14/2022 COVID-19 Vaccine (1 - 2023-2 5 season) 2024 Influenza Vaccine (#1) 2024 DTaP/Tdap/Td Vaccines (2 - T d or Tdap) 09/11/2033 09/12/2023 RSV Patients and Pa tients Aged 60 [...] patient's age to complete this topic Insurance [facility]CO [facility] Care Teams Band Saw Filer Relationship Specialty Start Date End Date Mishel Ayala Community Health Worker 06/14/22
== END 2024-12-07 10:22 | disposition home or self-care (01) ==
LOC: HO.MAMMO 10:21
PROVIDERS: PCP Nurse Practitioner Family; Visit Provider Nurse Practitioner Family
DX: N64.89 Other specified disorders of breast (principal)
CPT/HCPCS: 76642; 77061; 77065

== ENCOUNTER → 2024-12-07 10:30 | Outpatient (BNV) | payer OTHER, SELFPAY | PROVIDERS: PCP Nurse Practitioner Family; Visit Provider Radiology Body Imaging | DX: R92.8 Other abnormal and inconclusive findings on diagnostic imaging of breast (principal) | CPT/HCPCS: 76642; 77061; 77065 ==

== ENCOUNTER 2025-01-21 12:31 | Outpatient (AMB) | payer OTHER, SELFPAY ==
--- NOTE | 2025-01-21 12:34 | A.OFFPC_ITS ---
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 Is last menstrual period known: No Post menopausal: No Patient : No Allergies acetaminophen (From Percocet) Allergy (Severe, Verified 01/21/25 13:02) Chest Pain oxycodone (From Percocet) Allergy (Severe, Verified 01/21/25 13:02) Chest Pain Seasonal Allergies Allergy (Intermediate, Verified 01/21/25 13:02) Runny Nose fluoxetine (From Prozac) Allergy (Mild, Verified 01/21/25 13:02) Rash sertraline (From Zoloft) Allergy (Mild, Verified 01/21/25 13:02) Rash weed pollen Allergy (Mild, Verified 01/21/25 13:02) sneezing, watery eyes blue dye Allergy (Verified 01/21/25 13:02) Rash red dye Allergy (Verified 01/21/25 13:02) Rash Medication List - Last Reconciled 01/21/25 by Ba Walker CNP amlodipine 5 mg PO DAILY 3 months benzonatate 100 mg PO BID PRN fluticasone propionate 44 mcg/actuation 2 puffs inhalation BID 30 days hydrochlorothiazide 25 mg PO DAILY hydroxyzine HCl 25 mg PO TID PRN levothyroxine 112 mcg PO DAILY 30 days loratadine (Claritin) 10 mg PO DAILY 30 days losartan 100 mg PO DAILY metoprolol tartrate 25 mg PO BID norethindrone acetate 5 mg PO DAILY venlafaxine ER 37.5 mg PO DAILY Ventolin HFA 90 mcg/actuation (albuterol sulfate) 1 inh inhalation QID PRN 1 month NS Tobacco use date assessed: 01/21/25 Dental Screening Dental Screen Date: 01/21/25 Did you have a dental visit in the last 12 months?: Yes Did you have a dental problem in the last 6 months where you did not have access to dental care?: No Was dental information given to patient?: Patient has dentist HPI HPI Comments History of Present Illness Details 54-year-old female presents for hyperten jaime, anxiety, depression, and stress follow-up. She admits to taking her medications as prescribed without adverse reactions. She notes that her anxiety, depression, and stress level has significantly improved since she quit her job in 12/16/2024. She currently spends her time caring for mother who is ill. She plans to secure a new job. She did not get lipid panel blood work done for this visit as planned. She requests a referral to chiropractor for chronic low back and bilateral upper arm pain. No acute symptoms at this time. 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 1. Little interest or pleasure in doing things: not at all 2. Feeling down, depressed, or hopeless: not at all 3. Trouble falling or staying asleep, or sleeping too much: several days 4. Feeling tired or having little energy: more than half the days 5. Poor appetite or overeating: several days 6. Feeling bad about yourself - or that you are a failure or have let yourself or your family down: not at all 7. Trouble concentrating on things, such as reading the newspaper or watching television: not at all 8. Moving or speaking so slowly that other people could have noticed. Or the opposite - being so fidgety or restless that you have been moving around a lot more than usual: not at all 9. Thoughts that you would be better off or of hurting yourself in some way: not at all Total score: 4 Depression Screening Interpretation: Negative Depression Screening Done: Yes 31924 - PHQ-9 Billing: Yes Source: Developed by Drs. Deion Marshall, Sandra Lopez, Ricardo Raymond and colleagues, with an educational jim from [employer]. Thrive Questionnaire Date Thrive assessed: 06/01/24 I am a: Patient What is your living situation today?: I have a steady place to live Within the past 12 months, did the food you bought not last and you didn't have the money to get more?: I choose not to answer this question Within the past 12 months, did you worry whether your food would run out before you got money to buy more?: I choose not to answer this question Do you have trouble paying for medicines?: I choose not to answer this question Do you have trouble getting transportation to medical appointments?: No Do you have trouble paying your heating and electricity bill?: No Do you have trouble taking care of your child, family member or friend?: No Do you have trouble with day-to-day activities such as bathing, preparing meals, shopping, managing finances, etc.?: I choose not to answer this question Are you currently unemployed and looking for a job?: No Are you interested in more education?: I choose not to answer this question Please select the resources that you would like help with: None Currently or been in a relationship where the following occur: I choose not to answer THRIVE Score: 0 KAYA-7 AMB Questionnaire KAYA-7 Date KAYA - 7 assessed: 01/21/25 Feeling nervous, anxious, or on edge: 0 = Not at all Not being able to stop or control worryin = Several days Worrying too much about different things: 1 = Several days Trouble relaxin = Not at all Being so restless that it is hard to sit still: 0 = Not at all Becoming easily annoyed or irritable: 0 = Not at all Feeling afraid as if something awful might happen: 0 = Not at all Total KAYA-7 score (0-4 normal; 5-9 mild; 10-14 moderate; 15-21 severe): 2 Source: Developed by Drs. Deion Marshall, Sandra Lopez, Ricardo Raymond and colleagues, with an educational jim from [employer]. KAYA-7 Assessment Billing KAYA-7 Assessment Tool: KAYA-7 Assessment 08138 Review of Systems Const Details: Const Denies chills, Denies fatigue, Denies fever(s), Denies headache(s) and Denies weakness ENT Denies dizziness and Denies headache(s) Card Denies chest pain, Denies lightheadedness, Denies dyspnea and Denies other (Palpitations) Resp Denies cough, Denies dyspnea, Denies wheezing and Denies other ( shortness of breath) GI Denies abdominal pain, Denies melena, Denies hematochezia, Denies change in bowel habits, Denies dyspepsia and Denies nausea Denies hematuria and Denies dysuria Musc Reports as per HPI Skin/Breast Denies rash, Denies unusual bruising and Denies wounds Neuro Denies abnormal gait, Denies dizziness, Denies headache(s), Denies memory loss, Denies numbness, Denies Sensory deficit (Neuro), Denies tingling and Denies weakness Psych Denies anxiety, Denies depression, Denies memory loss Endo Denies cold intolerance, Denies fatigue, Denies heat intolerance, Denies polydipsia and Denies polyuria Aller/Immun Denies wheezing Physical exam (Primary Care) Vital Signs: Last Vital Signs Temp 97.9 F 01/21/25 12:40 Pulse 74 01/21/25 12:40 Resp 16 01/21/25 12:40 BP 130/66 01/21/25 13:06 Pulse Ox 97 01/21/25 12:40 Oxygen Delivery Method Room Air 01/21/25 12:40 BMI result Body Mass Index 38.7 Tobacco/Smoking Status: Tobacco use Status Tobacco use date assessed 01/21/25 01/21/25 12:44 Patient Tobacco Use Status Never used Tobacco 01/21/25 12:35 e-Cigarette/Vaping Use Never Used 01/21/25 12:35 PHQ-9: PHQ-9 Score PHQ-9: Total score 4 01/21/25 13:03 Depression Screening Interpretation: Negative Thrive Assessment: Date of Thrive Assessment Date Thrive assessed 06/01/24 01/21/25 12:35 Currently or been in a relationship where the following occur: I choose not to answer Const Other: General: no acute distress and well developed Nutritional Appearance: well nourished Orientation/consciousness: patient oriented x3 [facility]: Yes normocephalic and Yes atraumatic Eyes General: appearance normal, both eyes and all related structures Pupils: Equal, round and reactive pupils present EOM: EOMs intact bilaterally Resp Effort & Inspection: normal respiratory effort Auscultation: clear to auscultation bilaterally Cardio Rate: regular rate Rhythm: regular rhythm Heart sounds: S1 normal heart sound present, S2 normal heart sound present, no gallops, no murmurs and no rubs GI Palpation (GI): No Abdominal aortic bruit present, Soft to palpation, nontender, No hepatosplenomegaly present and No Rebound tenderness present Auscultation: normal bowel sounds General: Yes no CVA tenderness Back/Spine/Pelvis Back: no CVA tenderness Cervical Spine: cervical ROM normal and No Cervical spine tenderness Thoracic/Lumbar Spine: thoraco-lumbar ROM normal, No pain with thoraco-lumbar ROM, No thoracic spinal tenderness and No lumbar spinal tenderness Extrem General: Yes normal to inspection, No edema and No calf tenderness Skin General: warm and dry. Normal skin color. Normal skin turgor Neuro General: patient oriented x3, gait normal and no focal neuro deficit Cranial nerves: Yes Equal, round and reactive pupils present Cognition (Neuro): normal cognition Gait exam (Neuro): Normal gait present Sensory Exam: No Sensory deficit (Neuro) Psych Appearance: grossly normal Affect: normal affect Attitude: cooperative Thought process: Normal thought process present Coding Level of Care Code Est Pt Level 4 (04720) Diagnoses Primary hypertension I10 Hypertension type: primary hypertension Anxiety and depression F41.9; F32.A Bilateral elbow joint pain M25.521; M25.522 Chronic low back pain M54.50; G89.29 Additional Codes KAYA-7 Assessment Billing - KAYA-7 Assessment Tool: KAYA-7 Assessment 20438 ([id number]) PHQ-9 - 28854 - PHQ-9 Billing: Yes ([id number]) Assessment & Plan Assessment & Plan (1) Hypertension: Code(s): I10 - Essential (primary) hypertension Category: Medical Qualifiers: Hypertension type: primary hypertension Qualified Code(s): I10 - Essential (primary) hypertension Plan: Resting blood pressure is 130/66, within goal of less than 140/90. Continue current treatment regimen. Low-sodium diet encouraged. Follow-up in 3 months or sooner with symptoms or concerns. Verbalized understanding and agreed with the plan. (2) Anxiety and depression: Code(s): F41.9 - Anxiety disorder, unspecified; F32.A - Depression, unspecified Category: Medical Plan: Her anxiety, depression, and stress level has significantly improved since she quit her job in 12/16/2024. She currently spends her time caring for mother who is ill. She plans to secure a new job. PHQ-9 and KAYA-7 scores are normal. Continue current treatment regimen. Routine exercise encouraged. Follow-up in 3 months. Verbalized understanding and agreed with plan. (3) Bilateral elbow joint pain: Code(s): M25.521 - Pain in right elbow; M25.522 - Pain in left elbow Category: Medical Plan: May take Tylenol or ibuprofen as needed. Warm/cool compresses encouraged. Referred to chiropractor as requested. Follow-up with worsening or new symptoms. Verbalized understanding and agreed with the plan. (4) Chronic low back pain: Code(s): M54.50 - Low back pain, unspecified; G89.29 - Other chronic pain Category: Medical Plan: Plan as above. Orders: Referrals Chiropractic Referral G89.29 - Other chronic pain, M25.521 - Pain in right elbow, M25.522 - Pain in left elbow, M54.50 - Low back pain, unspecified
[2025-01-21 12:40] VITALS: BP 152/70; PULSE 74; RESP 16; TEMP 36.6; O2SAT 97; BMI 38.7
[2025-01-21 13:06] VITALS: BP 130/66
--- OUTSIDE RECORDS SUMMARY | 2025-01-21 15:02 | XMS_ITS | Clinical Summary ---
Author Organization [employer] Address [address] [place] [address] [address] [place] [address] Support Name Relationship Address Phone Silvia Bailey Personal Relationship Unknown Moises Bailey Personal Relationship Unknown [phone] Priscilla Ibrahim Personal Relationship Unknown + William Ibrahim Personal Relationship Unknown [phone]
== END 2025-01-21 13:13 | disposition home or self-care (01) ==
LOC: HO.HMCFM 12:31
PROVIDERS: PCP Nurse Practitioner Family; Visit Provider Nurse Practitioner Family
DX: I10 Essential (primary) hypertension (principal); F41.9 Anxiety disorder, unspecified; F32.A Depression, unspecified; M25.521 Pain in right elbow; M25.522 Pain in left elbow; M54.50 Low back pain, unspecified; G89.29 Other chronic pain

== ENCOUNTER → 2025-01-21 12:31 | Outpatient (BNVA) | payer OTHER, SELFPAY | PROVIDERS: PCP Nurse Practitioner Family; Visit Provider Nurse Practitioner Family | DX: I10 Essential (primary) hypertension (principal); F41.9 Anxiety disorder, unspecified; F32.A Depression, unspecified; M54.50 Low back pain, unspecified; M25.521 Pain in right elbow; M25.522 Pain in left elbow; G89.29 Other chronic pain; Z79.899 Other long term (current) drug therapy | CPT/HCPCS: 96127; 99212 ==

== ENCOUNTER 2025-02-04 11:32 | Outpatient (REF) | payer OTHER, SELFPAY ==
--- OUTSIDE RECORDS SUMMARY | 2025-02-04 14:09 | XMS_ITS | Clinical Summary ---
Author Organization [employer] Address [address] [place] [address] [address] [place] [address] Care Team Providers Care Medicaid Collection Specialist Name Role Phone Mishel Ayala Unavailable Unavailable Kofi Miller Primary Care Provider [phone] Allergies Active Allergy Reactions Criticality Noted Date [...] Mild asthma without complication 09/16/2022 Palpitations 09/16/2022 Encounters Date Type Department Care Team Description 01/04/2025 12:00 PM EDT [facility] [address] [place] [address] Alta Mercado, OD Dry eye syndrome of both eyes (Primary Dx); Presbyopia of both eyes from Last 3 Months Family History Medical History Relation Name Comments Cataracts Maternal Grandmother Relation Name Status Comments Maternal Grandmother Social History Tobacco Use Types Packs/Day Years Used Date Smoking Tobacco: Never Tobacco Cessation:Counseling Given: Not Answered Housing Stability Answer Date Recorded What is your housing situation today? 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 Not on file Not on file Last Filed Vital Signs Vital Sign Reading Time Taken Comments Blood Pressure 110/70 01/04/2025 11:43 AM EDT Pulse - - Temperature 36.5 [...] Disability Screening 1969 Alcohol/Substance Use Screening 1981 Hepatitis C Screening 1987 Hepatitis B Vaccines (1 of 3 - 19+ 3-dose series) 1988 Pneumococcal Vaccine: 50+ Ye ars (1 of 2 - PCV) 1988 Pap Smear 1990 Cervical Cancer Screening 1999 HPV/Cotest 1999 Mammogram 2009 Zoster Vaccines (1 of 2) 2019 SDOH Screening 06/14/2023 06/14/2022 COVID-19 Vaccine (1 - 2023-2 5 season) 2024 Influenza Vaccine (#1) 2024 Tobacco Screening 01/04/2026 01/04/2025 DTaP/Tdap/Td Vaccines (2 - T d or [...] patient's age to complete this topic Insurance [facility] 7 Anisa Luis Antonio Rondey Gladys PA [facility] ([facility] Care Teams Medicaid Collection Specialist Relationship Specialty Start Date End Date Kofi Miller [address] [place] [address] PCP - General 01/02/25 Mishel Ayala Community Health Worker 06/14/22
[2025-02-04 14:59] LABS: Cholesterol 193 mg/dL (<200); HDL Cholesterol 30 mg/dL (>40); Triglycerides 137 mg/dL (<150)
== END 2025-02-04 11:33 | disposition home or self-care (01) ==
LOC: HO.WFDLDS 11:32
PROVIDERS: Visit Provider Nurse Practitioner Family
DX: Z00.00 Encounter for general adult medical examination without abnormal findings (principal)
CPT/HCPCS: 36415; 80061

== ENCOUNTER 2025-03-18 12:31 | Outpatient (REF) | payer OTHER, SELFPAY ==
[2025-03-18 18:43] LABS: Resp Syncy Virus RNA Qual PCR NEGATIVE (Negative); SARS COV2 PCR INHOUSE NEGATIVE (Negative)
== END 2025-03-18 12:32 | disposition home or self-care (01) ==
LOC: HO.LAB 12:31
PROVIDERS: PCP Nurse Practitioner Family; Visit Provider Nurse Practitioner Family
DX: R05.3 Chronic cough (principal); J30.2 Other seasonal allergic rhinitis
CPT/HCPCS: 87637; 99212

== ENCOUNTER 2025-03-18 12:31 | Outpatient (AMB) | payer OTHER, SELFPAY ==
--- NOTE | 2025-03-18 12:36 | A.OFFPC_ITS ---
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: No Is last menstrual period known: No Post menopausal: No Patient : No Allergies acetaminophen (From Percocet) Allergy (Severe, Verified 03/18/25 13:09) Chest Pain oxycodone (From Percocet) Allergy (Severe, Verified 03/18/25 13:09) Chest Pain Seasonal Allergies Allergy (Intermediate, Verified 03/18/25 13:09) Runny Nose fluoxetine (From Prozac) Allergy (Mild, Verified 03/18/25 13:09) Rash sertraline (From Zoloft) Allergy (Mild, Verified 03/18/25 13:09) Rash weed pollen Allergy (Mild, Verified 03/18/25 13:09) sneezing, watery eyes blue dye Allergy (Verified 03/18/25 13:09) Rash red dye Allergy (Verified 03/18/25 13:09) Rash Medication List - Last Reconciled 03/18/25 by Ba Walker CNP amlodipine 5 mg PO DAILY 3 months benzonatate 100 mg PO BID PRN fluticasone propionate 44 mcg/actuation 2 puffs inhalation BID 30 days hydrochlorothiazide 25 mg PO DAILY hydroxyzine HCl 25 mg PO TID PRN levothyroxine 112 mcg PO DAILY 30 days loratadine (Claritin) 10 mg PO DAILY 30 days losartan 100 mg PO DAILY metoprolol tartrate 25 mg PO BID norethindrone acetate 5 mg PO DAILY venlafaxine ER 37.5 mg PO DAILY Ventolin HFA 90 mcg/actuation (albuterol sulfate) 1 inh inhalation QID PRN 1 month NS Tobacco use date assessed: 03/18/25 Dental Screening Dental Screen Date: 03/18/25 Did you have a dental visit in the last 12 months?: Yes Did you have a dental problem in the last 6 months where you did not have access to dental care?: No Was dental information given to patient?: Patient has dentist HPI HPI Comments History of Present Illness Details 54-year-old female presents with complai nts of persistent cough that is predominantly dry with occasional light yellow phlegm for the past 4 weeks. She notes associated nasal congestion and sneezing. Her cough has not worsened. She has been tried tussin, vapor rub, drinking warm fluids, and using her Ventolin inhaler with some improvement. She notes that it feels like something is stuck in my throat. She denies sore throat, chest pain, or difficulty breathing. She denies sick contacts. She denies viral testing. Denies history of asthma but has been on Ventolin and fluticasone inhalers for quite sometimes - states were prescribed for SOB with exertion. 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[employer]) Current occupational exposures/hazards: No Cognitive needs: No Hearing needs: No Vision needs: No Questionnaire Thrive Questionnaire Date Thrive assessed: 06/01/24 I am a: Patient What is your living situation today?: I have a steady place to live Within the past 12 months, did the food you bought not last and you didn't have the money to get more?: I choose not to answer this question Within the past 12 months, did you worry whether your food would run out before you got money to buy more?: I choose not to answer this question Do you have trouble paying for medicines?: I choose not to answer this question Do you have trouble getting transportation to medical appointments?: No Do you have trouble paying your heating and electricity bill?: No Do you have trouble taking care of your child, family member or friend?: No Do you have trouble with day-to-day activities such as bathing, preparing meals, shopping, managing finances, etc.?: I choose not to answer this question Are you currently unemployed and looking for a job?: No Are you interested in more education?: I choose not to answer this question Please select the resources that you would like help with: None Currently or been in a relationship where the following occur: I choose not to answer THRIVE Score: 0 KAYA-7 AMB Questionnaire KAYA-7 Date KAYA - 7 assessed: 01/21/25 Source: Developed by Drs. Deion Marshall, Sandra Lopez, Ricardo Raymond and colleagues, with an educational jim from [employer]. Review of Systems Const Details: Const Denies chills, Denies fatigue, Denies fever(s), Denies headache(s) and Denies weakness ENT Denies dizziness and Denies headache(s) Card Denies chest pain, Denies lightheadedness, Denies dyspnea and Denies other (P alpitations) Resp Reports cough, Denies dyspnea, Denies wheezing and Denies other ( shortness of breath) GI Denies abdominal pain, Denies melena, Denies hematochezia, Denies change in bowel habits, Denies dyspepsia and Denies nausea Denies hematuria and Denies dysuria Musc Denies abnormal gait, Denies myalgias, Denies arthralgias, Denies numbness and Denies tingling Skin/Breast Denies rash, Denies unusual bruising and Denies wounds Neuro Denies abnormal gait, Denies dizziness, Denies headache(s), Denies memory loss, Denies numbness, Denies Sensory deficit (Neuro), Denies tingling and Denies weakness Psych Denies anxiety, Denies depression, Denies memory loss Endo Denies cold intolerance, Denies fatigue, Denies heat intolerance, Denies polydipsia and Denies polyuria Aller/Immun Denies wheezing Physical exam (Primary Care) Vital Signs: Last Vital Signs Temp 98.6 F 03/18/25 12:46 Pulse 67 03/18/25 12:46 Resp 16 03/18/25 12:46 BP 132/60 03/18/25 12:46 Pulse Ox 99 03/18/25 12:46 Oxygen Delivery Method Room Air 03/18/25 12:46 BMI result Body Mass Index 39.2 Tobacco/Smoking Status: Tobacco use Status Tobacco use date assessed 03/18/25 03/18/25 12:47 Patient Tobacco Use Status Never used Tobacco 03/18/25 12:39 e-Cigarette/Vaping Use Never Used 03/18/25 12:39 Thrive Assessment: Date of Thrive Assessment Date Thrive assessed 06/01/24 03/18/25 12:39 Currently or been in a relationship where the following occur: I choose not to answer Const Other: General: no acute distress and well developed Nutritional Appearance: well nourished Orientation/consciousness: patient oriented x3 HENMT Head is normocephalic Bilateral ear canal and TM are normal Nasal turbinates with significant erythema and moderate edema Oropharynx are pink and moist Sinuses are nontender with palpation No auricular or cervical lymphadenopathy Eyes General: appearance normal, both eyes and all related structures Pupils: Equal, round and reactive pupils present EOM: EOMs intact bilaterally Resp Effort & Inspection: normal respiratory effort Auscultation: clear to auscultation bilaterally Cardio Rate: regular rate Rhythm: regular rhythm Heart sounds: S1 normal heart sound present, S2 normal heart sound present, no gallops, no murmurs and no rubs Extrem General: Yes normal to inspection, No edema and No calf tenderness Skin General: warm and dry. Normal skin color. Normal skin turgor Neuro General: patient oriented x3, gait normal and no focal neuro deficit Cranial nerves: Yes Equal, round and reactive pupils present Cognition (Neuro): normal cognition Gait exam (Neuro): Normal gait present Sensory Exam: No Sensory deficit (Neuro) Psych Appearance: grossly normal Affect: normal affect Attitude: cooperative Thought process: Normal thought process present Coding Level of Care Code Est Pt Level 4 (93542) Diagnoses Seasonal allergies J30.2 Assessment & Plan Assessment & Plan (1) Seasonal allergies: Code(s): J30.2 - Other seasonal allergic rhinitis Category: Medical Plan: Nasal turbinates with significant erythema and moderate edema. Oropharynx is pink and moist. Lung sounds clear and equal bilaterally. No evidence of bacterial infection, although viral infection is possible. Claritin, benzonatate, and Flonase as prescribed. Adequate hydration and rest encouraged. Chest x-ray ordered. Nasal swab collected and will be sent to the lab for COVID/flu/RSV. Follow-up with worsening or new symptoms. Verbalized understanding and agreed with the plan. Orders: Orders XR chest 2V Today J30.2 - Other seasonal allergic rhinitis SARS-CoV2/FLU/RSV Today J30.2 - Other seasonal allergic rhinitis Medications: New cetirizine 10 mg PO DAILY 30 tabs 0RF 30 days fluticasone propionate 50 mcg/actuation (Flonase Allergy Relief) Administer into each nostril. Two actuations in each nostril daily x1 week; and then 1-2 to actuations in each nostril daily 2 sprays intranasal DAILY 16 grams 2RF Refilled benzonatate 100 mg PO BID PRN 10 caps 0RF cough Discontinued loratadine (Claritin) Discontinued Reason: Patient no longer taking 10 mg PO DAILY 30 days 30 tabs 3RF
[2025-03-18 12:46] VITALS: BP 132/60; PULSE 67; RESP 16; TEMP 37; O2SAT 99; BMI 39.2
== END 2025-03-18 13:27 | disposition home or self-care (01) ==
LOC: HO.HMCFM 12:32
PROVIDERS: PCP Nurse Practitioner Family; Visit Provider Nurse Practitioner Family
DX: J30.2 Other seasonal allergic rhinitis (principal)

== ENCOUNTER 2025-03-19 09:19 | Outpatient (REF) | payer OTHER, SELFPAY ==
--- NOTE | ~2025-03-19 | XR_ITS ---
EXAMINATION: XR CHEST CLINICAL INFORMATION: J30.2 - Other seasonal allergic rhinitis COMPARISON: 02/11/2023. TECHNIQUE: 2 views of the chest were obtained. FINDINGS: The cardiac, hilar, and mediastinal contours are normal. The lungs are clear bilaterally. There is no pneumothorax or pleural effusion. There is no focal osseous or soft tissue abnormality. XR/XR chest 2V IMPRESSION: No active pulmonary disease. Normal chest. Electronically signed by: Stephen Lennon MD 03/19/2025 09:51 AM EST
== END 2025-03-19 09:20 | disposition home or self-care (01) ==
LOC: HO.XRAY 09:19
PROVIDERS: PCP Nurse Practitioner Family; Visit Provider Nurse Practitioner Family
DX: J30.2 Other seasonal allergic rhinitis (principal)
CPT/HCPCS: 71046

== ENCOUNTER → 2025-03-19 09:26 | Outpatient (BNV) | payer MEDICAID, SELFPAY | PROVIDERS: PCP Nurse Practitioner Family; Visit Provider Radiology Diagnostic Radiology | DX: J30.2 Other seasonal allergic rhinitis (principal) | CPT/HCPCS: 71046 ==

== ENCOUNTER 2025-04-24 09:20 | Outpatient (AMB) | payer OTHER, SELFPAY ==
--- NOTE | 2025-04-24 09:22 | A.OFFPC_ITS ---
Vital Signs 04/24/25 09:30 Height 5 ft 5 in Weight 231 lb 4 oz BMI 38.5 BP 130/63 Blood Pressure Location Lt brachial Position Sitting Respiration 16 Pulse 63 Pulse Source Pulse Oximeter Temp 97.9 F Temp Source Oral Pulse Oximetry (%) 97 Oxygen Delivery Method Room Air Intake Visit Reasons: Amber from [facility] /3 mos HTN, anxiety, depression Intake Note: patient here for AMBER from [facility] and 3 month follow up on anxiety and depression Stone Fabricator Required: No Is last menstrual period known: No Post menopausal: No Patient : No Allergies acetaminophen (From Percocet) Allergy (Severe, Verified 04/24/25 09:39) Chest Pain oxycodone (From Percocet) Allergy (Severe, Verified 04/24/25 09:39) Chest Pain Seasonal Allergies Allergy (Intermediate, Verified 04/24/25 09:39) Runny Nose fluoxetine (From Prozac) Allergy (Mild, Verified 04/24/25 09:39) Rash sertraline (From Zoloft) Allergy (Mild, Verified 04/24/25 09:39) Rash weed pollen Allergy (Mild, Verified 04/24/25 09:39) sneezing, watery eyes blue dye Allergy (Verified 04/24/25 09:39) Rash red dye Allergy (Verified 04/24/25 09:39) Rash Medication List - Last Reconciled 04/24/25 by Diana Mix, REGIONAL EDUCATION COORDINATOR- amlodipine 5 mg PO DAILY 3 months cetirizine 10 mg PO DAILY 30 days fluticasone furoate 100 mcg/actuation (Arnuity Ellipta) 1 inh inhalation DAILY fluticasone propionate 50 mcg/actuation (Flonase Allergy Relief) 2 sprays intranasal DAILY hydrochlorothiazide 25 mg PO DAILY hydroxyzine HCl 25 mg PO TID PRN levothyroxine 112 mcg PO DAILY 30 days losartan 100 mg PO DAILY metoprolol tartrate 25 mg PO BID norethindrone acetate 5 mg PO DAILY venlafaxine ER 37.5 mg PO DAILY Ventolin HFA 90 mcg/actuation (albuterol sulfate) 1 inh inhalation QID PRN 1 month NS Tobacco use date assessed: 04/24/25 Dental Screening Dental Screen Date: 04/24/25 Did you have a dental visit in the last 12 months?: Yes Did you have a dental problem in the last 6 months where you did not have access to dental care?: No Was dental information given to patient?: Patient has dentist HPI HPI Comments History of Present Illness Details 54 y/o F with prediabetes, chronic low b ack pain, Hypertension, asthma, obesity, hypothyroidism, vitamin-D deficiency, fibroids, anxiety, depression, anemia Health Maintenance: Tdap 2023 Flu 04/24/25 Mammo 11/2024 Colon DEXA Pap active w/ [employer] appt [facility]/2025 Specialists: Optho [facility] 2024, DME negative retinopathy per report* [employer] [facility] History of Present Illness The patient is a 54-year-old female presenting to critical access hospital care. AMBER from [facility], records reviewed. Type 2 Diabetes Mellitus: - The patient has a history of prediabet es and was previously diagnosed with type 2 diabetes with a hemoglobin A1c of 6.5%. - Her A1c today is 6.3%, which is an inc rease from 5.8% in June but an improvement from her highest recorded value. - She is actively trying to lose weight, has increased her water intake, and reports a 5-pound weight loss from 235 pounds to 230 pounds. - She had a diabetic eye exam this year at [facility], and no diabetic changes in her eyes were mentioned. Obesity: - The patient has a history of obesity w ith a recorded BMI of 38.5. - She reports making lifestyle changes, including trying to eat less and drink more water, which has resulted in a recent 5-pound weight loss. Hypothyroidism: - The patient has a history of hypothyro idism and takes levothyroxine 112 mcg daily. - She is due for laboratory monitoring o f her thyroid levels. Hypertension: - She has a history of hypertension and is managed on amlodipine, hydrochlorothiazide, losartan, and metoprolol. - Her blood pressure was recently 119/78 mmHg at a dental appointment & is at goal today Depression and Anxiety: - The patient has a history of depressio n and anxiety, for which she takes venlafaxine 37.5 mg daily and hydroxyzine. - The venlafaxine was prescribed by her previous provider after she had a reaction to a different medication. - Mood is stable Chronic Cough: - The patient reports a persistent cough . - She suspects she is allergic to her mo ther's house, which she describes as lei. - She has a history of using a rescue in haler (Ventolin) and Arnuity. - She recently ran out of her allergy me dication, cetirizine. - The cough has previously caused her to lose her voice, and her voice still becomes strained at times. - She also suspects the cough may be rel ated to acid reflux. Uterine Fibroid: - The patient was diagnosed with a uteri ne fibroid after experiencing an episode of hemorrhaging in [place]. - For a year prior to diagnosis, she exp erienced severe menorrhagia, requiring a heavy-duty pad and an extra tampon and still bleeding through them within 20 minutes. - She is aware of surgical options for r emoval and has an appointment with her tailings worker in June. Vit D and b12: taking supplements, reduced Vit d 5000 to 3xweek and is taking b12 daily. Due for labs Past Medical History - Type 2 diabetes mellitus, previously n oted as prediabetes. - Obesity with BMI of 38.5. - Hypothyroidism. - Depression and Anxiety. - Hypertension. - Uterine fibroid with a history of mikel re menorrhagia. - History of adverse medication reaction , leading to a change to venlafaxine. Review of Systems - Constitutional: Reports feeling more e nergetic and has experienced a 5-pound weight loss. - Eyes: Denies any change in vision. - Respiratory: Reports a persistent coug h and a tickling sensation in her throat. - ENT: Reports occasional hoarseness. - Genitourinary: History of menorrhagia. Physical Exam General: Well developed, well nourished, in no acute distress. Appears stated age. Head: Normocephalic, atraumatic. Eyes: Pupils are equal, round and reactive to light and accommodation. Conjunctivae are clear. Vision grossly normal. Pharynx: clear Neck: thyroid nontender, trachea midline Lungs: Clear to auscultation bilaterally. No rales, rhonchi or wheeze noted. Good air flow in all tirado. Persistent dry cough noted during exam Heart: Regular rate and rhythm. No murmurs, click, rubs or gallops are noted. . Musculoskeletal: Joints are nontender, without swelling, redness, or effusions. Pulses: Peripheral pulses are equal and palpable bilaterally. Extremities: No clubbing, cyanosis nor edema is noted. Psych: Mood and affect appropriate. Patient has a history of depression and anxiety, managed with hydroxyzine and venlafaxine. Results - Labs: Hemoglobin A1c is 6.3% as of carolina ayala's visit. other labs pending Medical Decision Making The patient is a 54-year-old female here to establish care, with a complex history including type 2 diabetes mellitus, hypertension, obesity, hypothyroidism, depression, and anxiety. Her hemoglobin A1c has increased to 6.3% from 5.8%, but remains below the 6.5% level that previously established her diabetes diagnosis. Her self-reported weight loss of 5 pounds and efforts to imp rove her diet and hydration are positive prognostic factors, and we will continue to support these lifestyle modifications. Her chief complaint of a chronic cough is likely multifactorial. Given the trigger of a lei environment and her history, an allergic component is suspected, which will be addressed by restarting cetirizine. However, given the cough's persistence despite previous inhaler use, gastroesophageal reflux disease is a significant possibility, and the patient agreed to a 12-week empiric trial of acid-suppressive therapy. Routine laboratory monitoring is due, particularly for her hypothyroidism, and a comprehensive panel will be drawn today. Her hypertension appears to be well- controlled on her current multi-drug regimen. For health maintenance, she will receive an influenza vaccine today and is scheduled for a full physical exam in June, at which time we will review lab results and reassess her chronic conditions. Her uterine fibroid is being managed by a specialist, and she will continue with her scheduled gynecology follow-up. Plan 1. Type 2 Diabetes Mellitus - The patient's A1c is 6.3%. - She is encouraged to continue with karen ght loss efforts and lifestyle modifications, including diet and hydration. - Laboratory testing ordered for today i ncludes a complete blood count, comprehensive metabolic panel, lipid panel, thyroid panel, B12, and vitamin D. - Will request records of her recent makeda betic eye exam from [facility]. 2. Chronic Cough - A prescription for cetirizine will be sent to her pharmacy to address belén pected allergic triggers. - Her Ventolin inhaler prescription will be renewed for as-needed use. - Will initiate a 12-week trial of medic ation for acid reflux, as GERD is a possible cause. - Will re-evaluate the cough at her foll ow-up appointment in June. 3. Hypertension - Blood pressure is well-controlled. - Continue current medications: amlodipi ne, hydrochlorothiazide, losartan, and metoprolol. 4. Hypothyroidism - Continue levothyroxine 112 mcg daily. - A thyroid panel will be included in to day's blood work as monitoring is due. 5. Depression And Anxiety - Continue current medications: venlafax ine 37.5 mg daily and hydroxyzine. 6. Uterine Fibroid - Patient to follow up with her gynecolo gist in June for specialist management. 7. Health Maintenance - Influenza vaccine to be administered t adrián. - Follow up in June for a complete p hysical exam. - Laboratory studies to be completed to ay with results sent via the patient portal. Patient Instructions - You will receive a flu shot today befo re leaving the clinic. - Please go to the lab for blood work af ter your visit today. We will send the results to you through the patient portal. - A prescription for cetirizine (allergy medication) and a new medication for acid reflux have been sent to your pharmacy, [facility]. Please take the acid reflux medication for 12 weeks to see if it helps your cough. - We have also renewed your prescription for your Ventolin (rescue) inhaler. - Continue taking your Vitamin B12 and V itamin D3 supplements as you have been. - Please stop at the front end ui developer to sched ule your appointment for a physical exam at the end of June. - If you need to contact me for any reas on, please send a message through the patient portal rather than calling. - Continue your great work on losing karen ght by eating smaller portions and drinking plenty of water. Consent The patient verbally consented to receiving the influenza vaccine during the visit. Patient was informed and verbally consented to the use of an ambient scribe for clinic note documentation during this visit. Total time spent caring for the patient today was 40 minutes. This includes time spent before the visit reviewing the chart, time spent during the visit, and time spent after the visit on documentation, reviewing laboratory results, diagnostic imaging, medications, performing a medically necessary evaluation, counseling on diagnoses, care coordination, ordering appropriate tests, ordering appropriate medications, review of tests performed by other providers, reporting test results with the patient, communication with other healthcare providers. PFSH Medical History (Updated 04/24/25 @ 10:01 by Diana Mix, [facility]) Breast cancer screening by mammogram Hypokalemia Morbid obesity Surgical History No pertinent past surgical history Family History Mother Mental health disorder Social History Household Members: Family Housing: House Patient Tobacco Use Status: Never used Tobacco e-Cigarette/Vaping Use: Never Used Second Hand Smoke Exposure: No Patient : No service: No Current occupational status: employed Current occupation: [employer]) Current occupational exposures/hazards: No Cognitive needs: No Hearing needs: No Vision needs: No Questionnaire PHQ-9 Over the last 2 weeks, how often have you been bothered by any of the following problems? 1. Little interest or pleasure in doing things: not at all 2. Feeling down, depressed, or hopeless: not at all 3. Trouble falling or staying asleep, or sleeping too much: not at all 4. Feeling tired or having little energy: several days 5. Poor appetite or overeating: several days 6. Feeling bad about yourself - or that you are a failure or have let yourself or your family down: not at all 7. Trouble concentrating on things, such as reading the newspaper or watching television: not at all 8. Moving or speaking so slowly that other people could have noticed. Or the opposite - being so fidgety or restless that you have been moving around a lot more than usual: not at all 9. Thoughts that you would be better off or of hurting yourself in some way: not at all Total score: 2 Depression Screening Interpretation: Negative Depression Screening Done: Yes 26009 - PHQ-9 Billing: Yes Source: Developed by Drs. Deion Marshall, Sandra Lopez, Ricardo Raymond and colleagues, with an educational jim from [employer]. Thrive Questionnaire Date Thrive assessed: 04/24/25 I am a: Patient What is your living situation today?: I have a steady place to live Within the past 12 months, did the food you bought not last and you didn't have the money to get more?: I choose not to answer this question Within the past 12 months, did you worry whether your food would run out before you got money to buy more?: I choose not to answer this question Do you have trouble paying for medicines?: I choose not to answer this question Do you have trouble getting transportation to medical appointments?: No Do you have trouble paying your heating and electricity bill?: No Do you have trouble taking care of your child, family member or friend?: No Do you have trouble with day-to-day activities such as bathing, preparing meals, shopping, managing finances, etc.?: I choose not to answer this question Are you currently unemployed and looking for a job?: No Are you interested in more education?: I choose not to answer this question Please select the resources that you would like help with: None Currently or been in a relationship where the following occur: I choose not to answer THRIVE Score: 0 AUDIT C Alcohol Use Questionnaire (AUDIT-C) 1. How often do you have a drink containing alcohol?: Never 3. How often do you have six or more drinks on one occasion?: Never Total Score: 0 Score Reviewed/Action Taken: Yes KAYA-7 AMB Questionnaire KAYA-7 Date KAYA - 7 assessed: 04/24/25 Feeling nervous, anxious, or on edge: 1 = Several days Not being able to stop or control worryin = Several days Worrying too much about different things: 1 = Several days Trouble relaxin = Not at all Being so restless that it is hard to sit still: 0 = Not at all Becoming easily annoyed or irritable: 0 = Not at all Feeling afraid as if something awful might happen: 0 = Not at all Total KAYA-7 score (0-4 normal; 5-9 mild; 10-14 moderate; 15-21 severe): 3 Source: Developed by Drs. Deion Marshall, Sandra Lopez, Ricardo Raymond and colleagues, with an educational jim from [employer]. KAYA-7 Assessment Billing KAYA-7 Assessment Tool: KAYA-7 Assessment 44597 Physical exam (Primary Care) Vital Signs: Last Vital Signs Temp 97.9 F 04/24/25 09:30 Pulse 63 04/24/25 09:30 Resp 16 04/24/25 09:30 BP 130/63 04/24/25 09:30 Pulse Ox 97 04/24/25 09:30 Oxygen Delivery Method Room Air 04/24/25 09:30 BMI result Body Mass Index 38.5 BMI Assessment/Plan discussion: High BMI High, discussed plan: lifestyle Tobacco/Smoking Status: Tobacco use Status Tobacco use date assessed 04/24/25 04/24/25 09:34 Patient Tobacco Use Status Never used Tobacco 04/24/25 09:25 e-Cigarette/Vaping Use Never Used 04/24/25 09:25 PHQ-9: PHQ-9 Score PHQ-9: Total score 2 04/24/25 09:34 Depression Screening Interpretation: Negative Thrive Assessment: Date of Thrive Assessment Date Thrive assessed 06/01/24 04/24/25 09:25 Currently or been in a relationship where the following occur: I choose not to answer Results AMB Hemoglobin A1c AMB Hemoglobin A1c 6.3 % Last Edit by ISAMAR Romo on 04/24/25 09:37 Results Reviewed Results Reviewed: Laboratory Last Values Hgb A1c (Clinic) 6.3 % (4.0-6.0) H 04/24/25 09:36 Coding Level of Care Code Est Pt Level 5 (89873) Add On Problem Visit Only Diagnoses Encounter to establish care with new provider Z76.89 Obesity (BMI 30-39.9) E66.9 Diabetes mellitus type 2 with complications E11.8 Influenza vaccination administered at current visit Z23 Hypothyroidism (acquired) E03.9 Vitamin D deficiency E55.9 Primary hypertension I10 Hypertension type: primary hypertension Dyslipidemia E78.5 Asthma, mild intermittent, well-controlled J45.20 Uterine fibroid D25.9 Additional Codes KAYA-7 Assessment Billing - KAYA-7 Assessment Tool: KAYA-7 Assessment 19316 ([id number]) PHQ-9 - 63358 - PHQ-9 Billing: Yes ([id number]) Assessment & Plan Assessment & Plan (1) Encounter to establish care with new provider: Code(s): Z76.89 - Persons encountering health services in other specified circumstances (2) Obesity (BMI 30-39.9): Code(s): E66.9 - Obesity, unspecified Category: Medical (3) Diabetes mellitus type 2 with complications: Comment: HTN and obesity BMI > 35 Code(s): E11.8 - Type 2 diabetes mellitus with unspecified complications Category: Medical (4) Influenza vaccination administered at current visit: Onset Date: ~04/24/25 Code(s): Z23 - Encounter for immunization Category: Medical (5) Hypothyroidism (acquired): Code(s): E03.9 - Hypothyroidism, unspecified Category: Medical (6) Vitamin D deficiency: Code(s): E55.9 - Vitamin D deficiency, unspecified Category: Medical (7) Hypertension: Code(s): I10 - Essential (primary) hypertension Category: Medical Qualifiers: Hypertension type: primary hypertension Qualified Code(s): I10 - Essential (primary) hypertension (8) Dyslipidemia: Code(s): E78.5 - Hyperlipidemia, unspecified Category: Medical (9) Asthma, mild intermittent, well-controlled: Code(s): J45.20 - Mild intermittent asthma, uncomplicated Category: Medical (10) Uterine fibroid: Code(s): D25.9 - Leiomyoma of uterus, unspecified Category: Medical Plan . Orders: Orders AMB Hemoglobin A1c Today E11.9 - Type 2 diabetes mellitus without complications TSH reflex Free T4 Today E03.9 - Hypothyroidism, unspecified, E11.8 - Type 2 diabetes mellitus with unspecified complications, E55.9 - Vitamin D deficiency, unspecified, E66.9 - Obesity, unspecified, E78.5 - Hyperlipidemia, unspecified, I10 - Essential (primary) hypertension Vitamin B12 and Folate Today E03.9 - Hypothyroidism, unspecified, E11.8 - Type 2 diabetes mellitus with unspecified complications, E55.9 - Vitamin D deficiency, unspecified, E66.9 - Obesity, unspecified, E78.5 - Hyperlipidemia, unspecified, I10 - Essential (primary) hypertension Complete Blood Count no Diff Today E03.9 - Hypothyroidism, unspecified, E11.8 - Type 2 diabetes mellitus with unspecified complications, E55.9 - Vitamin D deficiency, unspecified, E66.9 - Obesity, unspecified, E78.5 - Hyperlipidemia, unspecified, I10 - Essential (primary) hypertension Comprehensive Met. Panel Today E03.9 - Hypothyroidism, unspecified, E11.8 - Type 2 diabetes mellitus with unspecified complications, E55.9 - Vitamin D def iciency, unspecified, E66.9 - Obesity, unspecified, E78.5 - Hyperlipidemia, unspecified, I10 - Essential (primary) hypertension Lipid Panel Today E03.9 - Hypothyroidism, unspecified, E11.8 - Type 2 diabetes mellitus with unspecified complications, E55.9 - Vitamin D deficiency, unspecified, E66.9 - Obesity, unspecified, E78.5 - Hyperlipidemia, unspecified, I10 - Essential (primary) hypertension Microalbumin, Random (w Creat) Today E03.9 - Hypothyroidism, unspecified, E11.8 - Type 2 diabetes mellitus with unspecified complications, E55.9 - Vitamin D deficiency, unspecified, E66.9 - Obesity, unspecified, E78.5 - Hyperlipidemia, unspecified, I10 - Essential (primary) hypertension Vitamin D 25-OH Total Today E03.9 - Hypothyroidism, unspecified, E11.8 - Type 2 diabetes mellitus with unspecified complications, E55.9 - Vitamin D deficiency, unspecified, E66.9 - Obesity, unspecified, E78.5 - Hyperlipidemia, unspecified, I10 - Essential (primary) hypertension Influenza [id number] Immunization Today Z23 - Encounter for immunization Medications: New pantoprazole 20 mg PO DAILY 90 tabs 0RF Fluarix [id number] (PF) (flu vac ts 2024-(6mos up)-PF) 0.5 mL IM ONCE 0.5 mL 0RF NS Z23 - Encounter for immunization Changed From cetirizine 10 mg PO DAILY 30 days 30 tabs 0RF To cetirizine 10 mg PO DAILY 90 tabs 2RF 90 days Refilled Ventolin HFA 90 mcg/actuation (albuterol sulfate) 1 inh inhalation QID PRN 18 grams 8RF shortness of breath or wheezing 1 month NS J45.20 - Mild intermittent asthma, uncomplicated
--- OUTSIDE RECORDS SUMMARY | 2025-04-24 09:24 | XMS_ITS | Clinical Summary ---
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 Not on file Not [...] Cancer Screening 1999 HPV/Cotest 1999 Mammogram 2009 RSV Patients and Pa tients Aged 60 years or older (1 - Risk 50-74 years 1-dose series) 2019 Zoster Vaccines (1 of 2) 2019 SDOH Screening 06/14/2023 06/14/2022 COVID-19 Vaccine (1 - 2024-2 6 season) 2024 Influenza Vaccine (#1) 2024 Tobacco Screening 01/04/2026 01/04/2025 DTaP/Tdap/Td Vaccines (2 - T d or Tdap) 09/11/2033 09/12/2023 HIB Vaccines Aged Out No longer eligi [...] patient's age to complete this topic Insurance [place] [facility] [place] [facility] Care Teams Aws Software Development Engineer Relationship Specialty Start Date End Date Kofi Miller [address] [place] [address] PCP - General 01/02/25 Mishel Ayala Community Health Worker 06/14/22
[2025-04-24 09:30] VITALS: BP 130/63; PULSE 63; RESP 16; TEMP 36.6; O2SAT 97; BMI 38.5
== END 2025-04-24 10:05 | disposition home or self-care (01) ==
LOC: HO.HMCFM 09:21
PROVIDERS: PCP Nurse Practitioner Family; Visit Provider Nurse Practitioner Family
DX: E11.9 Type 2 diabetes mellitus without complications (principal); E66.9 Obesity, unspecified; Z68.38 Body mass index [BMI] 38.0-38.9, adult; I10 Essential (primary) hypertension; E03.9 Hypothyroidism, unspecified; E55.9 Vitamin D deficiency, unspecified; E78.5 Hyperlipidemia, unspecified; J45.20 Mild intermittent asthma, uncomplicated; D25.9 Leiomyoma of uterus, unspecified; Z76.89 Persons encountering health services in other specified circumstances; Z23 Encounter for immunization

== ENCOUNTER 2025-04-24 09:20 | Outpatient (REF) | payer OTHER, SELFPAY ==
[2025-04-24 11:13] LABS: Hematocrit 40.7 % (37.0-47.0); Hemoglobin 13.7 g/dl (12.0-16.0); Mean Corpuscular HGB Conc 33.7 g/dl (31.0-35.0); Mean Corpuscular Hemoglobin 30.0 pg (27.0-33.0); Mean Corpuscular Volume 89.1 fL (80.0-98.0); NRBC Abs Auto 0.000 X10*3/uL (0.0-0.012); NRBC Pct Auto 0.0 /100WBC (0.0-0.2); Platelet Count 414 X10*3/uL (160-400); Red Blood Count 4.57 X10*6/uL (4.20-5.50); White Blood Count 9.3 X10*3/uL (4.8-10.8)
[2025-04-24 11:51] LABS: Microalbum/Creatinine Ratio Ur 4.7 ug/mg cr (<30)
[2025-04-24 16:41] LABS: Alanine Aminotransferase 17 U/L (0-31); Albumin Level 4.4 g/dL (3.5-5.0); Alkaline Phosphatase 88 U/L (39-117); Anion Gap 14 (12-20); Aspartate Amino Transferase 22 U/L (5-31); Blood Urea Nitrogen 13 mg/dL (9-16); Calcium 9.7 mg/dL (8.4-10.2); Carbon Dioxide 27 mmol/L (22-29); Chloride 106 mmol/L (96-108); Cholesterol 187 mg/dL (<200); Estimated Glomerular Filt Rate > 60; HDL Cholesterol 35 mg/dL (>40); Potassium 4.1 mmol/L (3.3-5.1); Sodium 143 mmol/L (135-145); Total Protein 7.7 g/dL (6.5-8.0); Triglycerides 116 mg/dL (<150)
[2025-04-24 17:02] LABS: Folate 10.4 ng/mL (> or = 4.0); Vitamin B12 609 pg/mL (200-900)
[2025-04-24 17:14] LABS: Free T4 (Free Thyroxine) 1.25 ng/dL (0.71-1.85)
== END 2025-04-24 09:21 | disposition home or self-care (01) ==
LOC: HO.WFDLDS 09:20
PROVIDERS: PCP Nurse Practitioner Family; Visit Provider Nurse Practitioner Family
DX: I10 Essential (primary) hypertension (principal); E11.9 Type 2 diabetes mellitus without complications; E66.9 Obesity, unspecified; E03.9 Hypothyroidism, unspecified; F41.9 Anxiety disorder, unspecified; F32.A Depression, unspecified; R05.3 Chronic cough; D25.9 Leiomyoma of uterus, unspecified; E55.9 Vitamin D deficiency, unspecified; E78.5 Hyperlipidemia, unspecified; J45.20 Mild intermittent asthma, uncomplicated; Z23 Encounter for immunization; Z76.89 Persons encountering health services in other specified circumstances
CPT/HCPCS: 36415; 80053; 80061; 82043; 82306; 82570; 82607; 82746; 83036; 84439; 84443; 85027; 90471; 90656; 96127; 99212